=== PATIENT | female | born 1945 | race Caucasian/White ===

== ENCOUNTER 2016-05-22 09:37 | Day surgery (SDC) | payer MEDICARE, OTHER ==
[2016-05-22] MEDS ORDERED: LACTATED RINGERS 1,000 ML IV ONE (10:23)
[2016-05-22] MEDS ORDERED: fentaNYL 250 MCG/5 ML VIAL IVP ONE (12:38)
[2016-05-22] MEDS ORDERED: MIDAZOLAM 2 MG/2 ML VIAL IVP ONE (12:38)
== END 2016-05-22 09:38 | disposition home or self-care (01) ==
PROC: 0DBK8ZX Excision of Ascending Colon, Via Natural or Artificial Opening Endoscopic, Diagnostic (ICD-10-PCS; principal; 2016-05-22 10:45)
DX: Z12.11 Encounter for screening for malignant neoplasm of colon (principal); D12.2 Benign neoplasm of ascending colon; K57.30 Diverticulosis of large intestine without perforation or abscess without bleeding; K64.8 Other hemorrhoids; I10 Essential (primary) hypertension; E78.00 Pure hypercholesterolemia, unspecified; Z86.73 Personal history of transient ischemic attack (TIA), and cerebral infarction without residual deficits; Z87.891 Personal history of nicotine dependence; Z90.710 Acquired absence of both cervix and uterus
CPT/HCPCS: 45380; J3010; J7120

== ENCOUNTER 2017-02-05 17:11 | Observation (INO) | payer MEDICARE, OTHER ==
--- NOTE | 2017-02-05 17:56 | ED Physician Documentation ---
PD HPI FOCAL NEURO - Stated complaint Stated Complaint: DIZZINESS - Chief complaint Chief Complaint: Neuro - History obtained from History obtained from: Patient - History of Present Illness Timing - onset: Other (71-year-old with history of TIAs, on Plavix. Last night for about an hour she had vertigo assoc with R facial numbness and arm/leg tingling. Had mild POSADA, now better. 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, Hysterectomy, Oophrectomy - Present Medications Home Medications: Ambulatory Orders Medication Instructions Recorded Confirmed Amlodipine Besylate [Norvasc] 2.5 mg PO DAILY 05/22/16 05/22/16 Clopidogrel Bisulfate [Plavix] 75 mg PO DAILY 05/22/16 05/22/16 Methotrexate 2.5 mg PO DAILY 05/22/16 05/22/16 Rosuvastatin Calcium [Crestor] 5 mg PO DAILY 05/22/16 05/22/16 - Allergies Allergies/Adverse Reactions: Allergies Allergy/AdvReac Type Severity Reaction Status Date / Time adhesive AdvReac Rash Verified 05/22/16 10:36 lisinopril AdvReac Unknown Verified 05/22/16 10:36 - Family History Family history: reports: Non contributory PD ED PE NORMAL - Vitals Vital signs reviewed: Yes - General General: Alert and oriented X 3, No acute distress - HEENT HEENT: PERRL, EOMI - Neck Neck: Supple, no meningeal sign, No bony TTP - Cardiac Cardiac: RRR, No murmur - Respiratory Respiratory: No respiratory distress, Clear bilaterally - Abdomen Abdomen: Soft, Non tender - Back Back: No CVA TTP, No spinal TTP - Derm Derm: Normal color, Warm and dry - Extremities Extremities: No edema, No calf tenderness / cord - Neuro Neuro: Alert and oriented X 3, Normal speech Eye Opening: Spontaneous Motor: Obeys Commands Verbal: Oriented GCS Score: 15 - Psych Psych: Normal mood, Normal affect NIHSS - Time Time: 17:50 - Level of Consciousness Level of consciousness: (0) Alert, Keenly responsive LOC Questions: (0) Answers both Q's correct LOC Commands: (0) Performs both correctly - Gaze Best Gaze: (0) Normal - Visual Visual: (0) No loss - Facial Palsy Facial Palsy: (0) Normal, symmetrical movement - Motor Arms (both separate) Motor Arm (right): (0) No drift Motor Arm (left): (0) No drift - Motor Legs (both separate) Motor Leg (right): (0) No drift Motor Leg (left): (0) No drift - Limb Ataxia Limb Ataxia: (0) Absent - Sensory Sensory: (0) Normal - Best Language Best Language: (0) No aphasia - Dysarthria Dysarthria: (0) Normal - Extinction and Inattention (formally neg Extinction and inattention: (0) No abnormality - Total Score/Results Total Score/Result: 0 Results - Vitals Vitals: Vital Signs - 24 hr 02/05/17 17:21 Temperature 36.5 C Heart Rate 70 Respiratory 18 Rate Blood Pressure 150/83 H O2 Saturation 96 Oxygen O2 Source Room air - EKG (time done) 1743 Rate: Rate (enter#) (70) Rhythm: NSR [place]: Normal QRS: Low voltage Ischemia: Normal ST segments Computer interpretation: Agree with computer - Labs Labs: Laboratory Tests 02/05/17 02/05/17 02/05/17 18:02 18:02 18:02 WBC 8.0 RBC 4.21 Hgb 13.2 Hct 39.2 MCV 93.1 MCH 31.5 H MCHC 33.8 RDW 15.1 H Plt Count 342 MPV 8.3 Neut # 4.4 Lymph # 2.7 Pope # 0.7 Eos # 0.1 Baso # 0.0 Absolute Nucleated RBC 0.01 Nucleated RBC % 0.1 PT 10.9 INR 1.0 Sodium 139 Potassium 3.4 L Chloride 103 Carbon Dioxide 26 Anion Gap 10.0 BUN 24 H Creatinine 0.9 Estimated GFR (MDRD) 62 L Glucose 92 Calcium 9.2 Total Bilirubin 0.4 AST 21 ALT 17 Alkaline Phosphatase 50 Total Protein 7.6 Albumin 4.0 Globulin 3.6 Albumin/Globulin Ratio 1.1 Lipase 44 - Rads (name of study) CT Angio head and neck Radiology: EMP read contemporaneously (Old infarcts, she has hypoplasia of the right LINDSAY, the left A1 segment is dominant supplying both sides) PD MEDICAL DECISION MAKING - ED course ED course: 71-year-old woman with recurrent TIAs presents with a TIA yesterday comprised of vertigo and right-sided symptoms, normal examination at this juncture. CT imaging is shown. Will place in observation for serial exams. Spoke with Dr. Owen for observation at 8:08 PM. Started on aspirin in addition to the Plavix. 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
[2017-02-05 18:22] LABS: ALBUMIN/GLOBULIN RATIO 1.1 (1.0-2.2); BILIRUBIN,TOTAL 0.4 mg/dL (0.2-1.0); CALCIUM 9.2 mg/dL (8.5-10.3); CREATININE 0.9 mg/dL (0.4-1.0); POTASSIUM 3.4 mmol/L (3.5-5.0); TOTAL PROTEIN 7.6 g/dL (6.7-8.2)
[2017-02-05 18:26] LABS: BASOPHILS % (AUTO) 0.6 %; EOSINOPHILS # (AUTO) 0.1 10^3/uL (0.0-0.7); EOSINOPHILS % (AUTO) 1.7 %; HCT - HEMATOCRIT 39.2 % (37.0-47.0); HGB - HEMOGLOBIN 13.2 g/dL (12.0-16.0); LYMPHOCYTES # (AUTO) 2.7 10^3/uL (1.5-3.5); LYMPHOCYTES % (AUTO) 33.3 %; MEAN CORPUSCULAR HEMOGLOBIN 31.5 pg (27.0-31.0); MEAN CORPUSCULAR HGB CONC 33.8 g/dL (32.0-36.0); MEAN CORPUSCULAR VOLUME 93.1 fL (81.0-99.0); MEAN PLATELET VOLUME 8.3 fL (7.9-10.8); MONOCYTES # (AUTO) 0.7 10^3/uL (0.0-1.0); MONOCYTES % (AUTO) 9.3 %; NEUTROPHILS # (AUTO) 4.4 10^3/uL (1.5-6.6); NEUTROPHILS % (AUTO) 55.1 %; NUCLEATED RED BLOOD CELLS AUTO 0.1 /100WBC; RED BLOOD COUNT 4.21 10^6/uL (4.20-5.40); RED CELL DISTRIBUTION WIDTH 15.1 % (12.0-15.0)
[2017-02-05 18:36] LABS: PT - PROTHROMBIN TIME 10.9 secs (9.9-12.6)
[2017-02-05] MEDS ORDERED: IOPAMIDOL-300 100 ML VIAL ONE (18:43)
[2017-02-05] MEDS ORDERED: IOPAMIDOL-300 100 ML VIAL IVP ONE (19:12)
--- NOTE | 2017-02-05 20:03 | CT Report ---
EXAM: CT ANGIOGRAM HEAD. CT SCAN OF THE HEAD WITHOUT AND WITH CONTRAST. EXAM DATE: 02/05/2017 07:20 PM CLINICAL HISTORY: TIA, posterior.. Dizzy spell last night with right facial numbness. Symptoms lasted for an hour. COMPARISON: CT angiogram of the neck 02/05/2017. MRI of the brain 05/30/2012. TECHNIQUE: 1. CT Scan Head: Using a multidetector scanner, axial images were acquired from the foramen magnum to the skull vertex prior to and following contrast administration. 2. CT Angiogram: Using a multidetector scanner, high-resolution axial images were acquired from the s kull base through vertex following rapid infusion of intravenous contrast. Reformats: Multiplanar MIP reformats were reconstructed. Nascet criteria used for stenosis measurement. IV Contrast: 100 cc Isovue-300. In accordance with CT protocol optimization, one or more of the following dose reduction techniques w ere utilized for this exam: automated exposure control, adjustment of mA and/or KV based on patient s ize, or use of iterative reconstructive technique. FINDINGS: NON-CONTRAST HEAD: Parenchyma: Wedge-shaped areas of cystic encephalomalacia are seen posteriorly in the cerebellum, lar magdi on the right. Mild patchy white matter hypodensity is seen throughout the cerebral hemispheres. N o intracranial mass or hemorrhage. Extraaxial Spaces: Normal for age. No subdural or epidural collections identified. Ventricles: No hydrocephalus. Sinuses and orbits: Imaged paranasal sinuses, orbits, and mastoids show no significant abnormality. Bones: No evidence of fracture or calvarial defect. Other: None. POST-CONTRAST HEAD: No abnormal enhancement. CT ANGIOGRAM HEAD: RIGHT: Internal Carotid artery: No evidence of dissection. No evidence of aneurysm along the intracranial IC A. Mild vascular calcification is seen in the anterior cavernous ICA without significant stenosis Anterior Cerebral Artery: Patent without significant stenosis, aneurysm, or vascular malformation. Mo derate to marked hypoplasia of the A1 segment is seen. A2 and distal branches are primarily supplied through the left A1 segment and a patent A-comm. Middle Cerebral Artery: Patent without significant stenosis, aneurysm, or vascular malformation. Posterior Cerebral Artery: Patent without significant stenosis, aneurysm, or vascular malformation. F etal origin is noted as continuation of the P-comm. Posterior Communicating Artery: Patent. No aneurysm. Vertebral Artery: Patent without significant stenosis. No evidence of dissection. The PICA is unremar kable. LEFT: Internal Carotid artery: No evidence of dissection. No evidence of aneurysm along the intracranial IC A. Mild vascular calcifications are seen in the anterior cavernous ICA without significant stenosis. Anterior Cerebral Artery: Patent without significant stenosis, aneurysm, or vascular malformation. Th e left A1 segment is dominant. Middle Cerebral Artery: Patent without significant stenosis, aneurysm, or vascular malformation. Posterior Cerebral Artery: Patent without significant stenosis, aneurysm, or vascular malformation. Posterior Communicating Artery: Not visualized. Vertebral Artery: Patent without significant stenosis. No evidence of dissection. CENTRAL: Anterior Communicating Artery: Patent. No aneurysm. Basilar Artery: Patent without significant stenosis. No aneurysm. Bilateral superior cerebellar arter ies are unremarkable. The basilar artery terminates as the left BUSINESS PROCESS ASSOCIATE. DURAL VENOUS SINUSES AND MAJOR CENTRAL VEINS: Patent. The right transverse sinus and jugular bulb are dominant. IMPRESSION: CT Head: 1. No acute intracranial abnormality. No abnormal enhancement. 2. Wedge-shaped cystic foci in the cerebellar hemispheres, greater on the right. Findings are consist ent with old infarcts. 3. Patchy white matter hypodensity throughout the cerebral hemispheres. Findings are nonspecific but typically secondary to small vessel ischemic change. CTA Head: 1. Normal CTA of the head. No significant vascular stenosis, dissection, or aneurysm. 2. 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 The left A1 segment is domin ant, primarily supplying bilateral A2 and distal segments. 3. origin of the right BUSINESS PROCESS ASSOCIATE is seen as continuation of the P-comm. [facility] Referring Provider Line: [phone] SITE ID: [id number]
--- NOTE | 2017-02-05 20:03 | CT Report ---
EXAM: CT ANGIOGRAM NECK EXAM DATE: 02/05/2017 07:21 PM. CLINICAL HISTORY: TIA, posterior. Dizzy spell with right facial numbness last night lasting about an hour. COMPARISON: None. CT scan and CT Alecia Gram of the head 02/05/2017. TECHNIQUE: Routine axial helical imaging was performed from the skull base through the aortic arch. I V Contrast: 100 cc Isovue-300. Reconstructions: Routine multiplanar 3D MIP reconstructions. Evaluatio n of arterial stenosis is based on a NASCET method of measurement. In accordance with CT protocol optimization, one or more of the following dose reduction techniques w ere utilized for this exam: automated exposure control, adjustment of mA and/or KV based on patient s ize, or use of iterative reconstructive technique. FINDINGS: The partially visualized aortic arch is unremarkable with mild tortuosity. Normal three-vessel branch ing is seen. Mild vascular calcification is seen at the origin of right brachiocephalic and left comm on carotid arteries. Great vessels off the arch are patent and unremarkable. Right Carotid: The common carotid, internal carotid, and external carotid arteries are widely patent. No dissection, significant atherosclerotic plaque, or calcification identified. Mild circumferential dural thickening is seen at the CCA bifurcation without significant stenosis. Left Carotid: The common carotid, internal carotid, and external carotid arteries are widely patent. No dissection, significant atherosclerotic plaque, or calcification identified. Punctate calcificatio n is seen in the mid CCA. Mild atherosclerotic thickening and calcification is seen at the CCA bifurc ation and proximal ICA. No significant stenosis. Vertebrals: The vertebrobasilar system shows no stenoses. Intracranial Circulation: Normal. No stenoses or aneurysms of the visualized vessels. Other: Mild interstitial bolus changes seen in the lung apices. Mild biapical pleural thickening is n oted. The muscle and fascial planes of the neck are unremarkable. The right internal jugular vein is domina nt. No lytic or blastic lesions are seen within the bones. Mild to moderate spondylosis is seen throughou t the cervical spine. C3-C4: Right facet osseous fusion. C4-C5, C5-C6, C6-C7: Degenerative disk and u ncovertebral change. Bilateral foraminal stenosis is seen at C4-C5 and C5-C6. Central canal stenosis from dorsal osteophyte formation is seen at C5-C6. IMPRESSION: 1. Mild scattered atherosclerotic change seen in the thoracic inlet and carotid bifurcation. No signi ficant stenosis. No dissection. 2. Vertebral arteries are codominant and widely patent. 3. Spondylosis in the mid and lower cervical spine. Canal and foraminal stenosis is seen at C5-C6. [facility] Referring Provider Line: [phone] SITE ID: [id number]
[2017-02-05] MEDS ORDERED: ASPIRIN CHEW 81 MG TABLET PO STA (20:05)
[2017-02-05] MEDS ORDERED: ASPIRIN CHEW 81 MG TABLET ONE (20:16)
[2017-02-05] MEDS ORDERED: PROCHLORPERAZINE 10 MG/2 ML VIAL IVP PRN (20:31)
[2017-02-05] MEDS ORDERED: POTASSIUM CHLORIDE 20 MEQ TABLET PO STA (20:31)
[2017-02-05] MEDS ORDERED: HYDROcod/ACETAM 10 MG/325 MG TABLET PO PRN (20:31)
[2017-02-05] MEDS ORDERED: ACETAMINOPHEN 325 MG TABLET PO PRN (20:31)
[2017-02-05] MEDS ORDERED: SODIUM CHLORIDE FLUSH 0.9% 10 ML SYRINGE IVP PRN (20:31)
[2017-02-05] MEDS ORDERED: ZOLPIDEM 5 MG TABLET PO PRN (20:31)
[2017-02-05] MEDS ORDERED: ONDANSETRON 4 MG/2 ML VIAL IVP PRN (20:31)
[2017-02-05] MEDS ORDERED: SODIUM CHLORIDE 0.9% 1,000 ML IV SCH (21:00)
[2017-02-05] MEDS ORDERED: ATORVASTATIN 40 MG TABLET PO SCH (21:00)
[2017-02-05] MEDS ORDERED: POTASSIUM CHLORIDE 20 MEQ TABLET PO SCH (21:40)
[2017-02-05] MEDS ORDERED: CALCIUM CARBONATE CHEW 500 MG TABLET PO SCH (22:56)
[2017-02-05] MEDS: SODIUM CHLORIDE FLUSH 0.9% 10 ML SYRINGE IVP SCH (23:07)
--- NOTE | 2017-02-06 01:47 | HISTORY & PHYSICAL EXAMINATION ---
Chief Complaint - Chief Complaint Chief Complaint: Right-sided numbness History of Present Illness - Admitted From Admitted From:: Emergency department - History Obtained From Records Reviewed: Yes History obtained from: Patient Exam Limitations: None - History of Present Illness HPI Comment/Other: Patient is a 71-year-old female with a past medical history significant for TIAs , hypertension, hyperlipidemia and rheumatoid arthritis who presented to the emergency department with a chief complaint of right sided numbness, dizziness and headache. The patient states that the symptoms came on abruptly yesterday and lasted for a total of about 1 hour. She states that initially she felt extremely dizzy to a point where she states that she could barely walk and then began noticing numbness on the right side initially on her face and then down her right arm and her right leg. She states that the symptoms lasted for 1 hour and resolved but then she felt a slight headache. She states that she does not normally get headaches. She states that on her previous TIA she experienced a severe headache and blurred vision and this made her concerned for the possibility of having had another TIA. The patient states that her son- in-law examined her at home yesterday and checked for any facial droop or decreased strength and the patient states that she did not have any of those symptoms at that time. Patient states that she had no difficulty with her speech and denies any changes in her vision. The patient states that her symptoms improved after 1 hour but had not completely resolved and her headache remained into today when she finally decided to come to the emergency department. She states by the time she arrived the emergency department her symptoms have almost completely resolved. The patient does state that she uses Plavix at home and is on a cholesterol medication. The patient otherwise denies any fevers, chills, runny nose, sore throat, nasal congestion, difficulty swallowing, neck pain, chest pain, shortness of air, orthopnea, PND, abdominal pain, nausea, vomiting, diarrhea, constipation, urinary urgency, urinary frequency, dysuria, joint swelling, muscle aches, back pain, neck stiffness, muscle weakness, facial droop or aphasia. On presentation to the emergency department the patient is afebrile she is slightly hypertensive but otherwise not in any respiratory distress or any other acute distress. The patient's NIH stroke scale score was 0 on presentation. The patient was given aspirin in the emergency department and underwent imaging studies. The patient had a CT and CTA a of the head and neck which revealed no acute intracranial abnormality, wedge-shaped cystic foci in the cerebellar hemispheres, greater on the right which are consistent with old infarcts. She also was found to have patchy white matter hypodensity throughout the cerebral hemispheres which are nonspecific but typically secondary to small vessel ischemic change. The patient had a normal CTA of the head with no significant vascular stenosis, dissection or aneurysm. The patient 's CTA of the neck did reveal some mild scattered atherosclerotic change seen in the thoracic inlet and carotid bifurcation. There was no significant stenosis. The patient was placed in observation for likely TIA and will be monitored with neuro checks, telemetry monitoring and MRI in the morning. 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 The patient is originally from [place] and spent many years in [place] [place]. She is and lost her to cancer about 9 years ago. She has a degree in psychology. She has 5 daughters 1 of whom is in [facility] [place] and will be moving back to [place] [facility] within the next month. The patient does not smoke cigarettes, she rarely drinks alcohol and denies any illicit drug use. - POLST Patient has POLST: No POLST Status: Full Code Meds/Allgy - Home Medications Home Medications: Ambulatory Orders Medication Instructions Recorded Confirmed Amlodipine Besylate [Norvasc] 2.5 mg PO DAILY 05/22/16 05/22/16 Clopidogrel Bisulfate [Plavix] 75 mg PO DAILY 05/22/16 05/22/16 Methotrexate 2.5 mg PO DAILY 05/22/16 05/22/16 Rosuvastatin Calcium [Crestor] 5 mg PO DAILY 05/22/16 05/22/16 - Allergies Allergies/Adverse Reactions: Allergies Allergy/AdvReac Type Severity Reaction Status Date / Time adhesive AdvReac Rash Verified 05/22/16 10:36 lisinopril AdvReac Unknown Verified 05/22/16 10:36 Review of Systems - Other Findings Other Findings: A comprehensive review of systems was performed the pertinent positives and negatives are stated above in the HPI and the remainder of the review of systems is negative. Exam - Vital Signs Reviewed Vital Signs: Yes Vital Signs: Vital Signs x48h Temp Pulse Pulse Resp BP BP Pulse Ox 02/06/17 00:05 36.4 C L 59 L 18 121/65 97 02/05/17 21:58 36.4 C L 68 18 138/68 H 98 02/05/17 21:23 69 18 160/71 H 99 02/05/17 20:44 70 18 167/67 H 98 - Physical Exam General Appearance: positive: No acute distress, Alert Eyes Bilateral: positive: Normal inspection, PERRL, EOMI, No lid inflammation, Conjunctivae nml, No scleral icterus ENT: positive: ENT inspection nml, Pharynx nml, No signs of dehydration. negative: Purulent nasal drainage, Pharyngeal erythema, Oral lesions Neck: positive: Nml inspection, Thyroid nml, No JVD, Trachea midline. negative : Thyromegaly, Lymphadenopathy (R), Lymphadenopathy (L), Stiff neck, Carotid bruit, Tracheal deviation Respiratory: positive: Chest non-tender, No respiratory distress, Breath sounds nml. negative: Wheezes, Rales, Rhonchi Cardiovascular: positive: Regular rate & rhythm, No gallop, Systolic murmur Peripheral Pulses: positive: 2+ Abdomen: positive: Non-tender, No organomegaly, Nml bowel sounds, No distention. negative: Guarding, Rebound, Hepatomegaly Back: positive: Nml inspection. negative: CVA tenderness (R), CVA tenderness (L ) Skin: positive: Color nml, No rash. negative: Cyanosis, Pallor Extremities: positive: Non-tender, Full ROM, Nml appearance, No pedal edema, Other (bilateral hypertrophy of the MCP and PIP joints in the hands) Neurologic/Psychiatric: positive: Oriented x3, CN's nml (2-12), Motor nml, Sensation nml, Mood/affect nml Conclusion/Plan - Problem List (1) TIA (transient ischemic attack) Conclusion/Plan: Patient presented to the emergency room secondary to right sided facial, arm and leg numbness that lasted for 1 hour one day ago. She also had headache and dizziness where she could not walk which sounds more like vertigo. The patient does have history of previous TIAs and did undergo imaging studies in the emergency department which revealed chronic changes from her previous TIAs/ strokes. The patient's symptoms have now completely resolved. The patient is on Plavix at home but not aspirin. She does take a statin. 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 Given that she did have a TIA we will allow for permissive hypertension and hold any of her home antihypertensive medications unless blood pressure becomes exceedingly high at which point we will restart her medication. Qualifiers: Hypertension type: essential hypertension Qualified Code(s): I10 - Essential (primary) hypertension (3) Hypokalemia Conclusion/Plan: Patient's potassium is slightly decreased on presentation. We will replace the patient's potassium and continue to monitor her potassium daily. (4) Hyperlipidemia Conclusion/Plan: The patient is on statin at home. We will check a lipid profile We will continue patient on statin (5) Rheumatoid arthritis Conclusion/Plan: Patient has history of rheumatoid arthritis and is maintained on methotrexate. Although she does have changes of rheumatoid arthritis in her hands her symptoms at this point are controlled. We will continue her home dose of methotrexate. - Lab Results Lab results reviewed: Yes Fish Bones: 02/05/17 18:02 02/05/17 18:02 Other Lab Results: Laboratory Results WBC 8.0 x10^3/uL (4.8-10.8) 02/05/17 18:02 RBC 4.21 10^6/uL (4.20-5.40) 02/05/17 18:02 Hgb 13.2 g/dL (12.0-16.0) 02/05/17 18:02 Hct 39.2 % (37.0-47.0) 02/05/17 18:02 MCV 93.1 fL (81.0-99.0) 02/05/17 18:02 MCH 31.5 pg (27.0-31.0) H 02/05/17 18:02 MCHC 33.8 g/dL (32.0-36.0) 02/05/17 18:02 RDW 15.1 % (12.0-15.0) H 02/05/17 18:02 Plt Count 342 10^3/uL (130-450) 02/05/17 18:02 MPV 8.3 fL (7.9-10.8) 02/05/17 18:02 Neut # 4.4 10^3/uL (1.5-6.6) 02/05/17 18:02 Lymph # 2.7 10^3/uL (1.5-3.5) 02/05/17 18:02 [place] # 0.7 10^3/uL (0.0-1.0) 02/05/17 18:02 Eos # 0.1 10^3/uL (0.0-0.7) 02/05/17 18:02 Baso # 0.0 10^3/uL (0.0-0.1) 02/05/17 18:02 Absolute Nucleated RBC 0.01 x10^3/uL 02/05/17 18:02 Nucleated RBC % 0.1 /100WBC 02/05/17 18:02 PT 10.9 secs (9.9-12.6) 02/05/17 18:02 INR 1.0 (0.8-1.2) 02/05/17 18:02 Sodium 139 mmol/L (135-145) 02/05/17 18:02 Potassium 3.4 mmol/L (3.5-5.0) L 02/05/17 18:02 Chloride 103 mmol/L (101-111) 02/05/17 18:02 Carbon Dioxide 26 mmol/L (21-32) 02/05/17 18:02 Anion Gap 10.0 (6-13) 02/05/17 18:02 BUN 24 mg/dL (6-20) H 02/05/17 18:02 Creatinine 0.9 mg/dL (0.4-1.0) 02/05/17 18:02 Estimated GFR (MDRD) 62 (>89) L 02/05/17 18:02 Glucose 92 mg/dL (70-100) 02/05/17 18:02 Calcium 9.2 mg/dL (8.5-10.3) 02/05/17 18:02 Total Bilirubin 0.4 mg/dL (0.2-1.0) 02/05/17 18:02 AST 21 IU/L (10-42) 02/05/17 18:02 ALT 17 IU/L (10-60) 02/05/17 18:02 Alkaline Phosphatase 50 IU/L (42-121) 02/05/17 18:02 Total Protein 7.6 g/dL (6.7-8.2) 02/05/17 18:02 Albumin 4.0 g/dL (3.2-5.5) 02/05/17 18:02 Globulin 3.6 g/dL (2.1-4.2) 02/05/17 18:02 Albumin/Globulin Ratio 1.1 (1.0-2.2) 02/05/17 18:02 Lipase 44 U/L (22-51) 02/05/17 18:02 - Diagnostic Imaging Results Diagnostic Imaging Results: positive: Final report reviewed Diagnostic Imaging Results Comments: CT angios neck Impression: 1. Mild scattered atherosclerotic change seen in the thoracic inlet and carotid bifurcation, no significant stenosis. No dissection. 2. Vertebral arteries are codominant and widely patent. 3. 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 Canal and foraminal stenosis is seen at C5-C6. CT head Impression: 1. No acute intracranial abnormality. No abnormal enhancement. 2. Wedge-shaped cystic foci in the cerebellar hemispheres, greater on the right. Findings are consistent with old infarcts. 3. Patchy white matter hypodensity throughout the cerebral hemispheres. Findings are nonspecific but typically secondary to small vessel ischemic change. CT angiogram head: Impression: 1. Normal CTA of the head. No significant vascular stenosis, dissection or aneurysm. 2. 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 The left A1 segment is dominant, primarily supplying bilateral A2 and distal segments. 3. origin of the right SCULPTURE INSTRUCTOR is seen as continuation of the Pcomm. - EKG Results EKG Interpreted Independently: Yes Issues/Core Measures - Anticipated LOS Anticipated Stay Length: Less than 2 midnights - DVT/VTE - Prophylaxis VTE/DVT Device ordered at admit?: Yes
[2017-02-06 05:53] LABS: BASOPHILS % (AUTO) 0.7 %; EOSINOPHILS # (AUTO) 0.2 10^3/uL (0.0-0.7); EOSINOPHILS % (AUTO) 3.1 %; HCT - HEMATOCRIT 40.8 % (37.0-47.0); HGB - HEMOGLOBIN 13.5 g/dL (12.0-16.0); LYMPHOCYTES # (AUTO) 2.3 10^3/uL (1.5-3.5); LYMPHOCYTES % (AUTO) 33.7 %; MEAN CORPUSCULAR HEMOGLOBIN 30.8 pg (27.0-31.0); MEAN CORPUSCULAR VOLUME 93.3 fL (81.0-99.0); MEAN PLATELET VOLUME 8.3 fL (7.9-10.8); MONOCYTES # (AUTO) 0.6 10^3/uL (0.0-1.0); MONOCYTES % (AUTO) 9.1 %; NEUTROPHILS # (AUTO) 3.7 10^3/uL (1.5-6.6); NEUTROPHILS % (AUTO) 53.4 %; RED BLOOD COUNT 4.37 10^6/uL (4.20-5.40); RED CELL DISTRIBUTION WIDTH 15.1 % (12.0-15.0)
[2017-02-06] MEDS: SODIUM CHLORIDE FLUSH 0.9% 10 ML SYRINGE IVP SCH ×2 (06:07→10:34)
[2017-02-06 06:11] LABS: ALBUMIN/GLOBULIN RATIO 1.1 (1.0-2.2); BILIRUBIN,TOTAL 0.7 mg/dL (0.2-1.0); BUN - BLOOD UREA NITROGEN 19 mg/dL (6-20); CALCIUM 8.8 mg/dL (8.5-10.3); CARBON DIOXIDE - CO2 21 mmol/L (21-32); CHLORIDE 108 mmol/L (101-111); CHOL/HDL RATIO 3.4 (<4.4); CHOLESTEROL 159 mg/dL; CREATININE 0.7 mg/dL (0.4-1.0); GFR - MDRD 83 (>89); GLUCOSE 92 mg/dL (70-100); HDL CHOLESTEROL 47 mg/dL; LDL/HDL RATIO 1.7 (<4.4); POTASSIUM 3.8 mmol/L (3.5-5.0); SODIUM 140 mmol/L (135-145); TOTAL PROTEIN 7.3 g/dL (6.7-8.2); TRIGLYCERIDES 149 mg/dL; VLDL CHOLESTEROL 30 mg/dL
[2017-02-06 06:12] LABS: PT - PROTHROMBIN TIME 11.5 secs (9.9-12.6)
[2017-02-06 06:21] LABS: HEMOGLOBIN A1C 0.53 g/dL
[2017-02-06] MEDS ORDERED: POLYETHYLENE GLYCOL 3350 17 GM PACKET PO SCH (09:00)
[2017-02-06] MEDS ORDERED: ASPIRIN EC 81 MG TABLET PO SCH (09:00)
[2017-02-06] MEDS ORDERED: CLOPIDOGREL 75 MG TABLET PO SCH (09:00)
[2017-02-06] MEDS ORDERED: ATORVASTATIN 40 MG TABLET PO SCH (09:00)
[2017-02-06] MEDS ORDERED: FAMOTIDINE 20 MG TABLET PO SCH (09:00)
--- NOTE | 2017-02-06 10:09 | MRI Preliminary Report ---
Exam: MRI BRAIN W/O IMPRESSION: 1.No acute intracranial abnormality. No acute infarct, mass, or hemorrhage. 2. Moderate white matter signal change throughout the cerebral hemispheres. Findings are nonspecific but typically secondary to small vessel ischemic change. 3. Multiple peripheral cystic foci in the cerebellar hemispheres bilaterally, consistent with old [place] infarcts. [facility] SITE ID: [id number]
--- NOTE | 2017-02-06 10:30 | MRI Report ---
EXAM: MRI BRAIN WITHOUT CONTRAST EXAM DATE: 02/06/2017 09:28 AM. CLINICAL HISTORY: TIA. COMPARISON: MRI of the brain 05/30/2012. CT scan and CT angiogram of the head 02/05/2017. TECHNIQUE: Multiplanar, multisequence T1-weighted and fluid-sensitive MR sequences of the brain were performed. Sequences optimized for routine evaluation. Other: None. IV Contrast: None. FINDINGS: Brain Volume: Normal for age. Parenchyma/Dura: No mass, acute infarct or hemorrhage. There are multiple foci of cystic encephalomal acia noted peripherally in the cerebellar hemispheres bilaterally. Moderate patchy T2 and FLAIR brigh t signal is seen throughout the cerebral hemispheres bilaterally. Ventricles/Cisterns: No hydrocephalus. No abnormal extra-axial fluid collection or hemorrhage. Orbits: Symmetric and unremarkable. Sella Turcica: The pituitary gland, cavernous sinuses, suprasellar cistern and optic chiasm are unrem arkable. IAC: Symmetric and unremarkable. Vasculature: Normal signal flow void is seen in the major arterial structures at the skull base. Sinuses: No acute appearing sinus disease. Mild mucosal thickening is seen in ethmoid air cells. Bones: No focal pathologic appearing marrow signal changes. Other: None. IMPRESSION: 1.No acute intracranial abnormality. No acute infarct, mass, or hemorrhage. 2. Moderate white matter signal change throughout the cerebral hemispheres. Findings are nonspecific but typically secondary to small vessel ischemic change. 3. Multiple peripheral cystic foci in the cerebellar hemispheres bilaterally, consistent with old [place] infarcts. [facility] Referring Provider Line: [phone] SITE ID: [id number]
[2017-02-06] MEDS ORDERED: hydroCHLOROthiazide 25 MG TABLET PO SCH (12:00)
[2017-02-06] MEDS ORDERED: FOLIC ACID 1 MG TABLET PO SCH (12:00)
--- NOTE | 2017-02-06 13:00 | Discharge Plan ---
Discharge Plan Disposition: 01 Home, Self Care Condition: Stable Prescriptions: Aspirin [Adult Low Dose Aspirin EC] 81 mg PO DAILY #10 tablet. Diet: Cardiac Activity Restrictions: Activity as Tolerated Shower Restrictions: No Weight Bearing: Full Weight Additional Instructions or Follow Up instructions: May see PCP in one week No Smoking: If you smoke, Please STOP! Call for help. Follow-up with: Justin Singh MD [Primary Care Provider] -
--- NOTE | 2017-02-06 13:01 | DISCHARGE SUMMARY ---
Discharge Summary Discharge Date: 02/06/17 Discharging Provider: Cm Primary Care Provider: Justin Chowdhury Condition at Discharge: Stable Discharge Disposition: 01 Home, Self Care Discharge Facility Name: home - DIAGNOSES Admission Diagnoses: (1) TIA (transient ischemic attack) (2) Hypertension (3) Hypokalemia (4) Hyperlipidemia (5) Rheumatoid arthritis Discharge Diagnoses with Status of Each Condition: (1) TIA (transient ischemic attack) pt state she did not have any more focal neuro deficits MRI, CTA of neck, ECHO reveals no acute finding (2) Hypertension stable, continue home regime (3) Hypokalemia resolved (4) Hyperlipidemia stable, continue home meds (5) Rheumatoid arthritis stable, continue home meds - HPI History of Present Illness: please refer from Dr. Owen's HPI on 02/05/17 as the following: Patient is a 71-year-old female with a past medical history significant for TIAs , hypertension, hyperlipidemia and rheumatoid arthritis who presented to the emergency department with a chief complaint of right sided numbness, dizziness and headache. The patient states that the symptoms came on abruptly yesterday and lasted for a total of about 1 hour. She states that initially she felt extremely dizzy to a point where she states that she could barely walk and then began noticing numbness on the right side initially on her face and then down her right arm and her right leg. She states that the symptoms lasted for 1 hour and resolved but then she felt a slight headache. She states that she does not normally get headaches. She states that on her previous TIA she experienced a severe headache and blurred vision and this made her concerned for the possibility of having had another TIA. The patient states that her son- in-law examined her at home yesterday and checked for any facial droop or decreased strength and the patient states that she did not have any of those symptoms at that time. Patient states that she had no difficulty with her speech and denies any changes in her vision. The patient states that her symptoms improved after 1 hour but had not completely resolved and her headache remained into today when she finally decided to come to the emergency department. She states by the time she arrived the emergency department her symptoms have almost completely resolved. The patient does state that she uses Plavix at home and is on a cholesterol medication. The patient otherwise denies any fevers, chills, runny nose, sore throat, nasal congestion, difficulty swallowing, neck pain, chest pain, shortness of air, orthopnea, PND, abdominal pain, nausea, vomiting, diarrhea, constipation, urinary urgency, urinary frequency, dysuria, joint swelling, muscle aches, back pain, neck stiffness, muscle weakness, facial droop or aphasia. On presentation to the emergency department the patient is afebrile she is slightly hypertensive but otherwise not in any respiratory distress or any other acute distress. The patient's NIH stroke scale score was 0 on presentation. The patient was given aspirin in the emergency department and underwent imaging studies. The patient had a CT and CTA a of the head and neck which revealed no acute intracranial abnormality, wedge-shaped cystic foci in the cerebellar hemispheres, greater on the right which are consistent with old infarcts. She also was found to have patchy white matter hypodensity throughout the cerebral hemispheres which are nonspecific but typically secondary to small vessel ischemic change. The patient had a normal CTA of the head with no significant vascular stenosis, dissection or aneurysm. The patient 's CTA of the neck did reveal some mild scattered atherosclerotic change seen in the thoracic inlet and carotid bifurcation. There was no significant stenosis. The patient was placed in observation for likely TIA and will be monitored with neuro checks, telemetry monitoring and MRI in the morning. - HOSPITAL COURSE Hospital Course: pt was admitted for TIA, right side extremities numbness, dizziness. Pt has hx of stroke, and TIA. pt is on Plavix. pt state her symptoms are total resolved. pt's MRI of brain, CTA of neck, ECHO reveals no acute finding. Pt is advised to continue Plavix plus Aspirin 81 mg daily, and follow PCP in one week. - ALLERGIES Allergies/Adverse Reactions: Allergies Allergy/AdvReac Type Severity Reaction Status Date / Time adhesive AdvReac Rash Verified 05/22/16 10:36 lisinopril AdvReac Unknown Verified 05/22/16 10:36 - MEDICATIONS Home Medications: Ambulatory Orders Medication Instructions Recorded Confirmed Clopidogrel Bisulfate [Plavix] 75 mg PO DAILY 05/22/16 02/06/17 Methotrexate 20 mg PO TH 05/22/16 02/06/17 Rosuvastatin Calcium [Crestor] 5 mg PO DAILY 05/22/16 02/06/17 Aspirin [Adult Low Dose Aspirin EC] 81 mg PO DAILY #10 02/06/17 Folic Acid 1 mg PO DAILY 02/06/17 02/06/17 hydroCHLOROthiazide 25 mg PO DAILY 02/06/17 02/06/17 [Hydrochlorothiazide] - PHYSICAL EXAM AT DISCHARGE General Appearance: positive: No acute distress, Alert. negative: Lethargic Eyes Bilateral: positive: Normal inspection, PERRL, EOMI, No lid inflammation, Conjunctivae nml ENT: positive: ENT inspection nml, Pharynx nml, No signs of dehydration. negative: Purulent nasal drainage, Pharyngeal erythema, Dry mucous membranes Neck: positive: Nml inspection, Thyroid nml, No JVD. negative: Trachea midline , Thyromegaly, Lymphadenopathy (R), Lymphadenopathy (L), Stiff neck, Carotid bruit, Swelling/bruising, Tracheal deviation Respiratory: positive: Chest non-tender, No respiratory distress, Breath sounds nml. negative: Wheezes, Rales, Rhonchi Cardiovascular: positive: Regular rate & rhythm, No murmur, No gallop. negative : Irregularly irregular, Extrasystoles, Tachycardia, Bradycardia, Systolic murmur, Diastolic murmur Abdomen: positive: Non-tender, No organomegaly, Nml bowel sounds, No distention. negative: Tenderness, Guarding, Rebound Back: positive: Nml inspection. negative: CVA tenderness (R), CVA tenderness (L ) Skin: positive: Color nml, No rash, Warm, Dry. negative: Cyanosis, Diaphoresis , Pallor, Skin rash Extremities: positive: Non-tender, Full ROM, Nml appearance. negative: Pedal edema, Calf tenderness, Joint swelling, Bry's sign/cords Neurologic/Psychiatric: positive: Oriented x3, Motor nml, Sensation nml, Mood/ affect nml. negative: Weakness, Sensory loss, Facial droop, Slurred/abnml speech, Depressed mood/affect - LABS Result Diagrams: 02/06/17 05:23 02/06/17 05:23 - FOLLOW UP Follow Up: pt is advised to follow up PCP in one week. Pt is advised to continue Plavix plus Aspirin 81 mg daily, and follow PCP in one week.
[2017-02-06 13:43] VITALS: BP 130/68
[2017-02-08] MEDS ORDERED: METHOTREXATE 2.5 MG TABLET PO SCH (09:00)
== END 2017-02-06 14:09 | disposition home or self-care (01) ==
LOC: ED 17:11 → OBS 20:32
PROVIDERS: ADMIT Internal Medicine; ATTEND Nurse Practitioner Gerontology
DX: G45.0 Vertebro-basilar artery syndrome (principal); I10 Essential (primary) hypertension; E87.6 Hypokalemia; E78.5 Hyperlipidemia, unspecified; M06.9 Rheumatoid arthritis, unspecified; Z79.02 Long term (current) use of antithrombotics/antiplatelets; Z86.73 Personal history of transient ischemic attack (TIA), and cerebral infarction without residual deficits; Z79.899 Other long term (current) drug therapy
CPT/HCPCS: 36415; 70496; 70498; 70551; 80053; 80061; 83036; 83690; 85025; 85610; 93306; 96360; 96361; 99283; 99285; A9270; G0378; Q9967; 99284

== ENCOUNTER 2017-06-27 15:13 | Outpatient (CLI) | payer MEDICARE, OTHER ==
[2017-06-27 19:33] LABS: BASOPHILS # (AUTO) 0.1 10^3/uL (0.0-0.1); BASOPHILS % (AUTO) 0.8 %; EOSINOPHILS # (AUTO) 0.1 10^3/uL (0.0-0.7); EOSINOPHILS % (AUTO) 1.3 %; HGB - HEMOGLOBIN 12.6 g/dL (12.0-16.0); LYMPHOCYTES # (AUTO) 2.1 10^3/uL (1.5-3.5); LYMPHOCYTES % (AUTO) 27.8 %; MEAN CORPUSCULAR HEMOGLOBIN 30.8 pg (27.0-31.0); MEAN CORPUSCULAR VOLUME 93.2 fL (81.0-99.0); MEAN PLATELET VOLUME 8.7 fL (7.9-10.8); MONOCYTES # (AUTO) 0.9 10^3/uL (0.0-1.0); MONOCYTES % (AUTO) 11.4 %; NEUTROPHILS # (AUTO) 4.5 10^3/uL (1.5-6.6); NEUTROPHILS % (AUTO) 58.7 %; PLT - PLATELET COUNT 345 10^3/uL (130-450); RED CELL DISTRIBUTION WIDTH 15.3 % (12.0-15.0); WHITE BLOOD COUNT 7.7 x10^3/uL (4.8-10.8)
[2017-06-27 19:54] LABS: ALBUMIN 4.1 g/dL (3.2-5.5); ALBUMIN/GLOBULIN RATIO 1.2 (1.0-2.2); ALKALINE PHOSPHATASE 44 IU/L (42-121); ALT ALANINE AMINOTRANSFERASE 17 IU/L (10-60); AST ASPARTATE AMINOTRANSFERASE 21 IU/L (10-42); BILIRUBIN,TOTAL < 0.2 mg/dL (0.2-1.0); BUN - BLOOD UREA NITROGEN 25 mg/dL (6-20); CALCIUM 9.2 mg/dL (8.5-10.3); CARBON DIOXIDE - CO2 28 mmol/L (21-32); CHLORIDE 103 mmol/L (101-111); CREATININE 0.9 mg/dL (0.4-1.0); GFR - MDRD 62 (>89); GLUCOSE 95 mg/dL (70-100); SODIUM 136 mmol/L (135-145); TOTAL PROTEIN 7.5 g/dL (6.7-8.2)
== END 2017-06-27 15:14 | disposition home or self-care (01) ==
LOC: LAB.WCP 15:13
PROVIDERS: ATTEND Internal Medicine Rheumatology
DX: M05.79 Rheumatoid arthritis with rheumatoid factor of multiple sites without organ or systems involvement (principal)
CPT/HCPCS: 36415; 80053; 85025; 85651

== ENCOUNTER 2021-04-24 10:22 | Inpatient (IN) | payer MEDICARE, OTHER ==
--- NOTE | 2021-04-24 11:03 | ED Physician Documentation ---
PD HPI DYSPNEA - Stated complaint Stated Complaint: C+ SOA - Chief complaint Chief Complaint: Resp - History obtained from History obtained from: Patient - History of Present Illness Timing - onset: How many weeks ago (2) Timing - duration: Weeks (2) Timing - details: Gradual onset, Still present (worsened the past few days.) Inciting event(s): URI (cough, congestion, malaise, with positive COVID rapid test 04/08/21.), Other (unimmunized) Associated symptoms: Fever, Cough, Wheezing. No: Palpitations, Bilateral edema Similar symptoms before: Has not had sx before Recently seen: Not recently seen Review of Systems Constitutional: reports: Fever, Chills, Myalgias, Fatigue Nose: reports: Congestion. denies: Rhinorrhea / runny nose Throat: denies: Sore throat Cardiac: denies: Chest pain / pressure, Palpitations, Pedal edema Respiratory: reports: Dyspnea, Cough GI: reports: Nausea, Diarrhea (couple of times several days ago.). denies: Abdominal Pain, Vomiting Skin: denies: Rash Neurologic: reports: Generalized weakness. 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 : None HEENT: None Psych: None Musculoskeletal: Osteoarthritis, Other Derm: Psoriasis - Past Surgical History Past Surgical History: Yes General: Colonoscopy /VENDING MACHINE FILLER: section, Hysterectomy, Oophrectomy - Present Medications Home Medications: Ambulatory Orders Medication Instructions Recorded Confirmed Clopidogrel Bisulfate [Plavix] 75 mg PO DAILY 05/22/16 04/24/21 Methotrexate [Methotrexate Sodium] 20 mg PO TH 05/22/16 04/24/21 Rosuvastatin Calcium [Crestor] 5 mg PO DAILY 05/22/16 04/24/21 Folic Acid 1 mg PO DAILY 02/06/17 04/24/21 Pantoprazole [Protonix] 40 mg PO DAILY 04/24/21 04/24/21 - Allergies Allergies/Adverse Reactions: Allergies Allergy/AdvReac Type Severity Reaction Status Date / Time adhesive AdvReac Rash Verified 04/24/21 10:41 lisinopril AdvReac Unknown Verified 04/24/21 10:41 - Social History Does the pt smoke?: No Smoking Status: Former smoker Does the pt drink ETOH?: Yes Does the pt have substance abuse?: No - Immunizations Immunizations are current?: No Immunizations: Other immun not current - POLST Patient has POLST: No POLST Status: Full Code PD ED PE NORMAL - Vitals Vital signs reviewed: Yes (sats 86% RA) - General General: Alert and oriented X 3, Well developed/nourished - HEENT HEENT: Pharynx benign. No: Moist mucous membranes - Neck Neck: Supple, no meningeal sign, No adenopathy - Cardiac Cardiac: RRR, No murmur - Respiratory Respiratory: No: Clear bilaterally (decreased diffusely, with fine crackles more to left. CLear at bases. Some end exp wheezing. ) - Abdomen Abdomen: Soft, Non tender - Derm Derm: Normal color, Warm and dry - Extremities Extremities: No tenderness to palpate, No edema, No calf tenderness / cord - Neuro Neuro: Alert and oriented X 3, No motor deficit, Normal speech Results - Vitals Vitals: Vital Signs - 24 hr 04/24/21 04/24/21 04/24/21 10:42 10:55 11:24 Temperature 37.7 C Heart Rate 91 88 88 Respiratory 20 18 25 H Rate Blood Pressure 122/76 97/69 99/63 O2 Saturation 86 L 93 91 L 04/24/21 04/24/21 04/24/21 11:30 12:00 12:12 Temperature Heart Rate 85 96 119 H Respiratory 24 13 22 Rate Blood Pressure 96/62 113/77 O2 Saturation 94 94 04/24/21 12:30 Temperature Heart Rate 100 Respiratory 18 Rate Blood Pressure 132/66 H O2 Saturation 100 Oxygen O2 Source Nasal cannula Oxygen Flow Rate 4 - EKG (time done) 11:37 Rate: Rate (enter#) (85) Rhythm: NSR [place]: Normal Intervals: Normal NV QRS: Normal Ischemia: Normal ST segments. No: ST elevation c/w ischemia, ST depression - Labs Labs: Laboratory Tests 04/24/21 04/24/21 04/24/21 11:10 11:10 11:10 WBC 4.1 L RBC 4.34 Hgb 13.7 Hct 41.3 MCV 95.2 MCH 31.6 H MCHC 33.2 RDW 14.8 Plt Count 218 MPV 10.4 Neut # (Auto) 2.7 Lymph # (Auto) 0.6 L [place] # (Auto) 0.7 Eos # (Auto) 0.0 Baso # (Auto) 0.0 Absolute Nucleated RBC 0.00 Nucleated RBC % 0.0 Sodium 137 Potassium 3.4 L Chloride 104 Carbon Dioxide 20 L Anion Gap 13.0 BUN 19 Creatinine 0.8 Estimated GFR (MDRD) 70 L Glucose 136 H Calcium 8.2 L Magnesium 1.7 Total Bilirubin 0.5 AST 53 H ALT 29 Alkaline Phosphatase 66 B-Natriuretic Peptide 90 Total Protein 6.8 Albumin 3.2 Globulin 3.6 Albumin/Globulin Ratio 0.9 L Lipase 56 H Nasal Adenovirus (PCR) Nasal B. parapertussis DNA (PCR) Nasal Coronavir 229E PCR Nasal Coronavir HKU1 PCR Nasal Coronavir NL63 PCR Nasal Coronavir OC43 PCR Nasal Enterovir/Rhinovir PCR Nasal Influenza B PCR Nasal Influenza A PCR Nasal Parainfluen 1 PCR Nasal Parainfluen 2 PCR Nasal Parainfluen 3 PCR Nasal Parainfluen 4 PCR Nasal RSV (PCR) Nasal B.pertussis DNA PCR Nasal C.pneumoniae (PCR) Anthony Human Metapneumo PCR Nasal M.pneumoniae (PCR) Nasal SARS-CoV-2 (PCR) 04/24/21 11:10 WBC RBC Hgb Hct MCV MCH MCHC RDW Plt Count MPV Neut # (Auto) Lymph # (Auto) [place] # (Auto) Eos # (Auto) Baso # (Auto) Absolute Nucleated RBC Nucleated RBC % Sodium Potassium Chloride Carbon Dioxide Anion Gap BUN Creatinine Estimated GFR (MDRD) Glucose Calcium Magnesium Total Bilirubin AST ALT Alkaline Phosphatase B-Natriuretic Peptide Total Protein Albumin Globulin Albumin/Globulin Ratio Lipase Nasal Adenovirus (PCR) NOT DETECTED Nasal B. parapertussis DNA (PCR) NOT DETECTED Nasal Coronavir 229E PCR NOT DETECTED Nasal Coronavir HKU1 PCR NOT DETECTED Nasal Coronavir NL63 PCR NOT DETECTED Nasal Coronavir OC43 PCR NOT DETECTED Nasal Enterovir/Rhinovir PCR NOT DETECTED Nasal Influenza B PCR NOT DETECTED Nasal Influenza A PCR NOT DETECTED Nasal Parainfluen 1 PCR NOT DETECTED Nasal Parainfluen 2 PCR NOT DETECTED Nasal Parainfluen 3 PCR NOT DETECTED Nasal Parainfluen 4 PCR NOT DETECTED Nasal RSV (PCR) NOT DETECTED Nasal B.pertussis DNA PCR NOT DETECTED Nasal C.pneumoniae (PCR) NOT DETECTED Anthony Human Metapneumo PCR NOT DETECTED Nasal M.pneumoniae (PCR) NOT DETECTED Nasal SARS-CoV-2 (PCR) DETECTED A - Rads (name of study) chest xray Radiology: Prelim report reviewed, See rad report (Peripheral interstitial pattern consistent with fluid or diffuse pneumonia.) PD MEDICAL DECISION MAKING - ED course Complexity details: reviewed results, re-evaluated patient (Patient has unlabored breathing on oxygen. Her vitals remained stable. Her heart rhythm a ctually changed to atrial fibrillation while in the ER with a maximal rate of approximately 110. She did not have any chest pain or lightheadedness with it.), considered differential (Previous home Covid test positive. Has increasing pneumonia symptoms now 2 weeks into the illness. Consider bacterial secondary infection as well. She is hypoxic and will need hospitalization for all these problems.), d/w patient, d/w risk and insurance consultant (hospitalist. ) Departure - Departure Disposition: 66 [facility] DC/Xfer Clinical Impression: COVID-19, Hypoxia, New onset atrial fibrillation Pneumonia Qualifiers: Pneumonia type: due to unspecified organism Laterality: unspecified laterality Lung location: unspecified part of lung Qualified Code(s): J18.9 - Pneumonia, unspecified organism Condition: Stable Record reviewed to determine appropriate education?: Yes Discharge Date/Time: 04/24/21 13:30
[2021-04-24] MEDS ORDERED: AZITHROMYCIN 250 MG TABLET PO STA (11:22)
[2021-04-24] MEDS ORDERED: SODIUM CHLORIDE 0.9% 1,000 ML IV STA (11:22)
[2021-04-24] MEDS ORDERED: ALBUTEROL 1 PUFF INH STA (11:22)
[2021-04-24] MEDS ORDERED: cefTRIAXone 1 GM VIAL IVP STA (11:22)
[2021-04-24] MEDS ORDERED: BUDESONIDE 0.5 MG/2 ML NEB INH STA (11:23)
[2021-04-24 11:29] LABS: HCT - HEMATOCRIT 41.3 % (37.0-47.0); HGB - HEMOGLOBIN 13.7 g/dL (12.0-16.0); LYMPHOCYTES # (AUTO) 0.6 10^3/uL (1.5-3.5); MEAN CORPUSCULAR HEMOGLOBIN 31.6 pg (27.0-31.0); MEAN CORPUSCULAR HGB CONC 33.2 g/dL (32.0-36.0); MEAN CORPUSCULAR VOLUME 95.2 fL (81.0-99.0); MEAN PLATELET VOLUME 10.4 fL (7.9-10.8); MONOCYTES # (AUTO) 0.7 10^3/uL (0.0-1.0); MONOCYTES % (AUTO) 17.6 %; NEUTROPHILS # (AUTO) 2.7 10^3/uL (1.5-6.6); NEUTROPHILS % (AUTO) 67.2 %; PLT - PLATELET COUNT 218 10^3/uL (130-450); RED BLOOD COUNT 4.34 10^6/uL (4.20-5.40); RED CELL DISTRIBUTION WIDTH 14.8 % (12.0-15.0); WHITE BLOOD COUNT 4.1 x10^3/uL (4.8-10.8)
[2021-04-24 11:39] LABS: ALBUMIN 3.2 g/dL (3.2-5.5); ALBUMIN/GLOBULIN RATIO 0.9 (1.0-2.2); BILIRUBIN,TOTAL 0.5 mg/dL (0.2-1.0); CALCIUM 8.2 mg/dL (8.5-10.3); CREATININE 0.8 mg/dL (0.4-1.0); MAGNESIUM 1.7 mg/dL (1.7-2.8); POTASSIUM 3.4 mmol/L (3.5-5.0); TOTAL PROTEIN 6.8 g/dL (6.7-8.2)
--- NOTE | 2021-04-24 12:12 | XRAY Report ---
PROCEDURE: Chest 1 View X-Ray INDICATIONS: chest pain TECHNIQUE: One view of the chest was acquired. COMPARISON: None FINDINGS: Surgical changes and devices: None. Lungs and pleura: Bilateral peripheral interstitial infiltrative densities are noted in the bilateral lower lung zones. Pleural space clear. Mediastinum: Mediastinal contours appear normal. Heart size is normal. Bones and chest wall: No suspicious bony lesions. Overlying soft tissues appear unremarkable. IMPRESSION: 1. Peripheral interstitial pattern may reflect chronic interstitial changes versus interstitial infil trates. Reviewed by: Fortunato Murphy MD on 04/24/2021 11:11 AM [facility] Approved by: Fortunato Murphy MD on 04/24/2021 11:11 AM [facility] Station ID: [id number]
[2021-04-24 12:34] LABS: B. PARAPERTUSSIS- RESP PCR PAN NOT DETECTED; B. PERTUSSIS- RESP PCR PANEL NOT DETECTED; C. PNEUMONIAE- RESP PCR PANEL NOT DETECTED; CORONAVIRUS 229E-RESP PCR NOT DETECTED; CORONAVIRUS HKU1-RESP PCR NOT DETECTED; CORONAVIRUS NL63-RESP PCR NOT DETECTED; CORONAVIRUS OC43-RESP PCR NOT DETECTED; HUMAN METAPNEUMOVIRUS NOT DETECTED; INFLUENZA A- RESP PCR PANEL NOT DETECTED; INFLUENZA B - RESP PCR PANEL NOT DETECTED; M. PNEUMONIAE- RESP PCR PANEL NOT DETECTED; PARAINFLUENZA VIRUS 1 NOT DETECTED; PARAINFLUENZA VIRUS 2 NOT DETECTED; PARAINFLUENZA VIRUS 3 NOT DETECTED; PARAINFLUENZA VIRUS 4 NOT DETECTED; RHINOVIRUS/ENTEROVIRUS NOT DETECTED; RSV- RESP PCR PANEL NOT DETECTED; SARS-CoV-2 -RESP PCR PANEL DETECTED
[2021-04-24] MEDS ORDERED: ONDANSETRON 4 MG/2 ML VIAL IVP PRN (12:40)
[2021-04-24] MEDS ORDERED: SODIUM CHLORIDE FLUSH 0.9% 10 ML SYRINGE IVP PRN (12:40)
[2021-04-24] MEDS ORDERED: oxyCODONE 5 MG TABLET PO PRN (12:40)
--- NOTE | 2021-04-24 12:47 | HISTORY & PHYSICAL EXAMINATION ---
Chief Complaint - Chief Complaint Chief Complaint: dyspnea and hypoxia History of Present Illness - Admitted From [facility] - History Obtained From Records Reviewed: yes History obtained from: patient and medical records - History of Present Illness HPI Comment/Other: Patient is a 75-year-old female who presented to the ED with complaint of dyspnea, cough and a low-grade fever. She reported a temperature of 99 F today and the highest temperature she has had this 101 F. On 04/08/2021 she tested positive for COVID-19. She is unvaccinated for COVID19. Her symptoms of dyspnea, fever and cough started 5 days ago. She came in today because it became significant. Her cough is pink-tinged. She reports nausea but no vom iting. She denies abdominal pain or diarrhea. In the ED she was noted to have an oxygen saturation of 86% on room air. She required 4 L of oxygen to maintain her oxygen around 94%. She was also noted to be in atrial fibrillation with heart rate as high as the 120s. She does not have a previous history of atrial fibrillation. As a result of her presentation she is being admitted for further management. 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 The patient is originally from [facility] and spent many years in [facility]. She is and lost her to cancer about 14 years ago. She has a degree in psychology. She has 5 daughters The patient does not smoke cigarettes, she rarely drinks alcohol and denies any illicit drug use. - POLST Patient has POLST: No POLST Status: Full Code Meds/Allgy - Home Medications Home Medications: Ambulatory Orders Medication Instructions Recorded Confirmed Clopidogrel Bisulfate [Plavix] 75 mg PO DAILY 05/22/16 04/24/21 Methotrexate [Methotrexate Sodium] 20 mg PO TH 05/22/16 04/24/21 Rosuvastatin Calcium [Crestor] 5 mg PO DAILY 05/22/16 04/24/21 Folic Acid 1 mg PO DAILY 02/06/17 04/24/21 Pantoprazole [Protonix] 40 mg PO DAILY 04/24/21 04/24/21 - Allergies Allergies/Adverse Reactions: Allergies Allergy/AdvReac Type Severity Reaction Status Date / Time adhesive AdvReac Rash Verified 04/24/21 10:41 lisinopril AdvReac Unknown Verified 04/24/21 10:41 Review of Systems - Constitutional Constitutional: reports: Fever, Chills, Weakness - Eyes Eyes: denies: Pain, Vision loss, Dipolpia - Ears, Nose & Throat Ears, Nose & Throat: denies: Ear pain, Sore throat - Cardiovascular Cariovascular: denies: Irregular heart rate, Palpitations, Chest pain, Lightheadedness, Syncope - Respiratory Respiratory: reports: Cough, Sputum production, SOB at rest, SOB with exertion - Gastrointestinal Gastrointestinal: reports: Nausea, Reflux/heartburn. denies: Abdominal pain, Abdominal distention, Constipation, Diarrhea, Vomiting - Genitourinary Genitourinary: denies: Dysuria, Frequency, Urgency, Hematuria - Musculoskeletal Musculoskeletal: denies: Muscle pain, Back pain, Muscle aches - Integumentary Integumentary: denies: Rash, Pruritis, Lesions, Dryness - Neurological Neurological: denies: General weakness, Focal weakness, Headache, Dizziness - Psychiatric Psychiatric: denies: Depression, Anxiety - Endocrine Endocrine: denies: Polyuria, Polydypsia - Hematologic/Lymphatic Hematologic/Lymphatic: denies: Anemia, Bruising, Petechiae Prior Level of Functionality: She is independent of activities of daily living. She lives with one of her da tysonhters and their family. She works out 3 times a week. Exam - Vital Signs Vital Signs: Vital Signs x48h Temp Pulse Resp BP Pulse Ox 04/24/21 12:30 100 18 132/66 H 100 04/24/21 12:12 119 H 22 04/24/21 12:00 96 13 113/77 94 04/24/21 11:30 85 24 96/62 94 04/24/21 11:24 88 25 H 99/63 91 L 04/24/21 10:55 88 18 97/69 93 02/13/22 10:42 37.7 C 91 20 122/76 86 L - Physical Exam General Appearance: positive: Alert, Mild distress (Respiratory) ENT: positive: No signs of dehydration Neck: positive: No JVD, Trachea midline Respiratory: positive: Chest non-tender, Other (Mild dyspnea. Bilateral crackles) Cardiovascular: positive: Irregularly irregular, Tachycardia Abdomen: positive: Non-tender, No organomegaly, Nml bowel sounds. negative: Guarding, Rebound Skin: positive: Color nml, No rash, Warm, Dry Extremities: positive: Non-tender, Full ROM, Nml appearance. negative: No pedal edema, Pedal edema Neurologic/Psychiatric: positive: Oriented x3, Mood/affect nml Conclusion/Plan - Problem List (1) Acute respiratory failure with hypoxia Conclusion/Plan: Secondary to COVID-19 infection. However cannot rule out a bacterial pneumonia. Chest x-ray done on 04/24/2021 showed peripheral interstitial pattern which may reflect chronic interstitial changes versus interstitial infiltrates. Patient initially tested positive for COVID-19 on 04/08/2021. In this time the patient has been dyspneic and febrile. Today oxygen saturation was 86% on room air and required 4 L of oxygen via nasal cannula to maintain oxygen saturation at 94%. We will continue supplemental oxygen. Dexamethasone 6 mg IV daily ordered. Will not prescribe remdesivir given that it is currently about 16 days since diagnosis. Rocephin and azithromycin ordered. Lovenox 40 mg subcu daily for DVT prophylaxis. D-dimer pending. (2) COVID-19 Conclusion/Plan: On supplemental oxygen via nasal cannula. Oxygen saturation currently 94% on 4 L of oxygen. Dexamethasone 6 mg IV daily ordered. Rocephin and azithromycin ordered. (3) New onset atrial fibrillation Conclusion/Plan: Likely exacerbated by respiratory failure. Rate currently fluctuates between 90 and 120. Diltiazem 30 mg p.o. every 6 hours scheduled. 2D echocardiogram ordered for 04/25/2021 (4) Hyperlipidemia Conclusion/Plan: Patient takes rosuvastatin at home. Atorvastatin 40 mg p.o. every afternoon ordered. (5) Hypertension Conclusion/Plan: Currently normotensive. On diltiazem 30 mg p.o. every 6 hours scheduled. Qualifiers: Hypertension type: essential hypertension (6) Hypokalemia Conclusion/Plan: Patient given a dose of potassium chloride p.o. 40 mEq. She will also receive 2 g of magnesium sulfate IV x1 for magnesium of 1.7 (7) Rheumatoid arthritis Conclusion/Plan: Patient takes methotrexate 2.5 mg IM every . We will hold methotrexate for now while also treating a potential bacterial infection (8) GERD (gastroesophageal reflux disease) Conclusion/Plan: Protonix 40 mg p.o. daily. - Lab Results Fish Bones: 04/24/21 11:10 04/24/21 11:10 Core Measures - Anticipated LOS I expect patient to be DC'd or transferred within 96 hours.: Yes - DVT/VTE - Prophylaxis VTE/DVT Device ordered at admit?: Yes VTE/DVT Prophylaxis med ordered at admit?: Yes
[2021-04-24] MEDS ORDERED: ALBUTEROL 1 PUFF INH PRN (12:49)
[2021-04-24] MEDS ORDERED: diltiaZEM INJ 5 MG/ML VIAL IVP STA (12:50)
[2021-04-24] MEDS: DEXAMETHASONE 4 MG/ML VIAL IVP SCH (14:03)
[2021-04-24] MEDS: ENOXAPARIN 40 MG/0.4 ML SYRINGE SUBQ SCH (14:05)
[2021-04-24] MEDS ORDERED: POTASSIUM CHLORIDE 20 MEQ TABLET PO ONE (14:30)
[2021-04-24] MEDS ORDERED: MAGNESIUM SULFATE 2 GRAM 2 GM/50 ML BAG IV ONE (14:30)
[2021-04-24] MEDS: diltiaZEM 30 MG TABLET PO SCH ×2 (18:55→23:46)
[2021-04-24] MEDS: SODIUM CHLORIDE FLUSH 0.9% 10 ML SYRINGE IVP SCH ×2 (19:25→23:47)
[2021-04-24] MEDS: ATORVASTATIN 40 MG TABLET PO SCH (21:45)
[2021-04-25 05:20] LABS: HCT - HEMATOCRIT 39.1 % (37.0-47.0); HGB - HEMOGLOBIN 12.9 g/dL (12.0-16.0); LYMPHOCYTES % (AUTO) 28.3 %; MEAN CORPUSCULAR HEMOGLOBIN 30.9 pg (27.0-31.0); MEAN CORPUSCULAR VOLUME 93.8 fL (81.0-99.0); MEAN PLATELET VOLUME 10.1 fL (7.9-10.8); MONOCYTES % (AUTO) 21.5 %; NEUTROPHILS % (AUTO) 49.3 %; PLT - PLATELET COUNT 229 10^3/uL (130-450); RED BLOOD COUNT 4.17 10^6/uL (4.20-5.40); RED CELL DISTRIBUTION WIDTH 14.9 % (12.0-15.0); WHITE BLOOD COUNT 2.2 x10^3/uL (4.8-10.8)
[2021-04-25 05:24] LABS: CALCIUM 8.4 mg/dL (8.5-10.3); CREATININE 0.7 mg/dL (0.4-1.0); MAGNESIUM 2.3 mg/dL (1.7-2.8); POTASSIUM 4.4 mmol/L (3.5-5.0)
[2021-04-25 06:13] LABS: ABNORMAL LYMPHS % (MANUAL) 2 %; BAND NEUTROPHILS % (MANUAL) 3 %; BASOPHILS % (MANUAL) 1 %; LYMPHOCYTES # (MANUAL) 0.5 10^3/uL (1.5-3.5); LYMPHOCYTES % (MANUAL) 22 %; MONOCYTES # (MANUAL) 0.2 10^3/uL (0.0-1.0); NEUTROPHILS # (MANUAL) 1.5 10^3/uL (1.5-6.6)
[2021-04-25 06:14] LABS: DIFFERENTIAL COMMENT MANUAL DIFFERENTIAL; PLATELET ESTIMATE, MANUAL NORMAL (130-450,000) (NORMAL); PLATELET MORPHOLOGY NORMAL APPEARANCE (NORMAL); RBC MORPHOLOGY (MULTIPLE) NORMAL APPEARANCE (NORMAL); WBC MORPHOLOGY (MULTIPLE) NORMAL APPEARANCE (NORMAL)
[2021-04-25] MEDS: diltiaZEM 30 MG TABLET PO SCH ×3 (06:25→19:02)
[2021-04-25] MEDS: PANTOPRAZOLE 40 MG TABLET PO SCH (06:28)
[2021-04-25] MEDS: DEXAMETHASONE 4 MG/ML VIAL IVP SCH (08:19)
[2021-04-25] MEDS: SODIUM CHLORIDE FLUSH 0.9% 10 ML SYRINGE IVP SCH ×2 (08:20→16:18)
[2021-04-25] MEDS: CLOPIDOGREL 75 MG TABLET PO SCH (08:21)
[2021-04-25] MEDS: FOLIC ACID 1 MG TABLET PO SCH (08:21)
[2021-04-25] MEDS: ENOXAPARIN 40 MG/0.4 ML SYRINGE SUBQ SCH (08:21)
[2021-04-25] MEDS: cefTRIAXone 1 GM in SODIUM CHLORIDE 0.9% MINIBAG 100 ML IV SCH (08:23)
--- NOTE | 2021-04-25 08:28 | PROVIDER PROGRESS NOTE ---
Assessment/Plan - Problem List (1) Acute respiratory failure with hypoxia Assessment/Plan: Secondary to COVID-19 infection. However cannot rule out a bacterial pneumonia. Chest x-ray done on 04/24/2021 showed peripheral interstitial pattern which may reflect chronic interstitial changes versus interstitial infiltrates. Patient initially tested positive for COVID-19 on 04/08/2021. Currently on 13 L of oxygen via oxygen mask with oxygen saturation at 93%. Dexamethasone 6 mg IV daily Remdesivir not given because it has been about 17 days since diagnosis. Rocephin and azithromycin initiated on 04/24/2021 Lovenox 40 mg subcu daily for DVT prophylaxis. (2) COVID-19 Assessment/Plan: Currently on 13 L of oxygen via oxygen mask with oxygen saturation at 93%. Dexamethasone 6 mg IV daily Remdesivir not given because it has been about 17 days since diagnosis. Rocephin and azithromycin initiated on 04/24/2021 Lovenox 40 mg subcu daily for DVT prophylaxis. (3) New onset atrial fibrillation Assessment/Plan: Likely exacerbated by respiratory failure. Heart rate currently fluctuates between 60 and 90. Diltiazem 30 mg p.o. every 6 hours scheduled. 2D echocardiogram ordered for 04/25/2021 pending (4) Hyperlipidemia Assessment/Plan: Patient takes rosuvastatin at home. Atorvastatin 40 mg p.o. every afternoon ordered. (5) Hypertension Qualifiers: Hypertension type: essential hypertension Assessment/Plan: Currently normotensive. On diltiazem 30 mg p.o. every 6 hours scheduled. (6) Hypokalemia Assessment/Plan: Resolved. Potassium level is 4.4 and magnesium 2.3 (7) Rheumatoid arthritis Assessment/Plan: Patient takes methotrexate 2.5 mg IM every . We will hold methotrexate for now while also treating a potential bacterial infection (8) GERD (gastroesophageal reflux disease) Assessment/Plan: Protonix 40 mg p.o. daily. - Current Meds Current Meds: Current Medications Generic Name Dose Route Start Last Admin Trade Name Freq PRN Reason Stop Dose Admin Albuterol 2 puffs 04/24/21 12:49 04/24/21 17:39 Albuterol 1 Puff INH 2 puffs Q4H PRN Administration Dyspnea Atorvastatin Calcium 40 mg 04/24/21 21:00 04/24/21 21:45 Atorvastatin 40 Mg Tablet PO 40 mg QPM KINSEY Administration Clopidogrel Bisulfate 75 mg 04/25/21 09:00 04/25/21 08:21 Clopidogrel 75 Mg Tablet PO 75 mg DAILY KINSEY Administration Dexamethasone 6 mg 04/24/21 14:30 04/25/21 08:19 Dexamethasone 4 Mg/Ml Vial IVP 05/03/21 14:29 6 mg DAILY KINSEY Administration Diltiazem HCl 30 mg 04/24/21 18:00 04/25/21 06:25 Diltiazem 30 Mg Tablet PO 30 mg Q6HR KINSEY Administration Enoxaparin Sodium 40 mg 04/24/21 14:30 04/25/21 08:21 Enoxaparin 40 Mg/0.4 Ml Syringe SUBQ 40 mg DAILY KINSEY Administration Folic Acid 1 mg 04/25/21 09:00 04/25/21 08:21 Folic Acid 1 Mg Tablet PO 1 mg DAILY KINSEY Administration Pantoprazole Sodium 40 mg 04/25/21 07:00 04/25/21 06:28 Pantoprazole 40 Mg Tablet PO 40 mg QDAC KINSEY Administration Sodium Chloride 10 ml 04/24/21 12:40 04/24/21 14:12 Sodium Chloride Flush 0.9% 10 Ml Syringe IVP 10 ml PRN PRN Administration NEEDED PER PROVIDER ORDERS Sodium Chloride 10 ml 04/24/21 17:00 04/25/21 08:20 Sodium Chloride Flush 0.9% 10 Ml Syringe IVP 10 ml 0100,0900,1700 KINSEY Administration - Lab Result Fish Bone Diagrams: 04/25/21 05:05 04/25/21 05:05 - Additional Planning My Orders: My Active Orders 04/24/21 Lunch Regular Diet [DIET] 04/24/21 12:40 Activity Orders [RC] Q2HR IO [RC] IOSHIFT Initiate Bowel Care Protocol [RC] .protocol Initiate Line Care Protocol [RC] QSHIFT Initiate Personal Care Protoco [RC] .protocol Oxygen Therapy [RC] .PRN Telemetry- [RC] Q4HR Vital Signs [RC] 0800,1600,0000 Acetaminophen [Tylenol] 650 mg PO Q4HR PRN Ondansetron Inj [Zofran Inj] 4 mg IVP Q6HR PRN Sodium Chloride Flush 0.9% [Normal Saline Flush 0.9%] 10 ml IVP PRN PRN oxyCODONE [Roxicodone] 5 mg PO Q4HR PRN Code Status [OTHERS] Routine Condition of Patient [OTHERS] Routine DVT Prophylaxis [OTHERS] Routine 04/24/21 12:49 Mdi: Albuterol 2 puffs INH Q4H PRN 04/24/21 12:59 Blood Culture [CULTURE, BLOOD #1] [RM] Stat 04/24/21 13:03 Blood Culture [CULTURE, BLOOD #2] [RM] Stat 04/24/21 14:30 Enoxaparin [Lovenox] 40 mg SUBQ DAILY dexAMETHasone [Decadron] 6 mg IVP DAILY 04/24/21 14:50 RT [Nebulizer/MDI Tx.] [RC] .q4prn 04/24/21 17:00 Sodium Chloride Flush 0.9% [Normal Saline Flush 0.9%] 10 ml IVP 0100,0900,1700 04/24/21 18:00 diltiaZEM [Cardizem] 30 mg PO Q6HR 04/24/21 21:00 Atorvastatin [Lipitor] 40 mg PO QPM 04/25/21 07:00 Pantoprazole [Protonix] 40 mg PO QDAC 04/25/21 08:00 Echo Transthoracic Complete [ECHO] Routine 04/25/21 09:00 Azithromycin Inj [Zithromax Inj] 500 mg Sodium Chloride 0.9% [Normal Saline 0.9%] 250 ml IV DAILY Clopidogrel [Plavix] 75 mg PO DAILY Folic Acid 1 mg PO DAILY cefTRIAXone [Rocephin] 1 gm Sodium Chloride 0.9% Minibag [Normal Saline 0.9% Minibag] 100 ml IV DAILY 04/26/21 05:00 BMP - BASIC METABOLIC PANEL [CHEM] DAILYLAB CBC - COMP BLD CT W/AUTO DIFF [HEME] DAILYLAB 04/27/21 05:00 BMP - BASIC METABOLIC PANEL [CHEM] DAILYLAB CBC - COMP BLD CT W/AUTO DIFF [HEME] DAILYLAB 04/28/21 05:00 BMP - BASIC METABOLIC PANEL [CHEM] DAILYLAB CBC - COMP BLD CT W/AUTO DIFF [HEME] DAILYLAB 04/29/21 05:00 BMP - BASIC METABOLIC PANEL [CHEM] DAILYLAB CBC - COMP BLD CT W/AUTO DIFF [HEME] DAILYLAB 04/30/21 05:00 BMP - BASIC METABOLIC PANEL [CHEM] DAILYLAB CBC - COMP BLD CT W/AUTO DIFF [HEME] DAILYLAB 05/01/21 05:00 BMP - BASIC METABOLIC PANEL [CHEM] DAILYLAB CBC - COMP BLD CT W/AUTO DIFF [HEME] DAILYLAB Subjective - Subjective Patient Reports: Other (Patient resting comfortably in bed. She reports breathing better. However her oxygen requirement increased from 4 L on N/C to 10 L of oxygen via oxymask.) Objective Vital Signs: Vital Signs - 24 hr 04/24/21 04/24/21 04/24/21 10:42 10:55 11:24 Temperature 37.7 C Heart Rate 91 88 88 Heart Rate [ Monitoring electrodes] Respiratory 20 18 25 H Rate Blood Pressure 122/76 97/69 99/63 Blood Pressure [Left Brachial artery] Blood Pressure [Right Brachial artery] O2 Saturation 86 L 93 91 L 04/24/21 04/24/21 04/24/21 11:30 12:00 12:12 Temperature Heart Rate 85 96 119 H Heart Rate [ Monitoring electrodes] Respiratory 24 13 22 Rate Blood Pressure 96/62 113/77 Blood Pressure [Left Brachial artery] Blood Pressure [Right Brachial artery] O2 Saturation 94 94 04/24/21 04/24/21 04/24/21 12:30 13:00 13:41 Temperature 36.9 C Heart Rate 100 107 H Heart Rate [ 100 Monitoring electrodes] Respiratory 18 17 20 Rate Blood Pressure 132/66 H 130/62 Blood Pressure [Left Brachial artery] Blood Pressure 111/59 L [Right Brachial artery] O2 Saturation 100 92 94 04/24/21 04/24/21 04/24/21 16:53 17:47 20:23 Temperature 37.1 C Heart Rate 80 Heart Rate [ 83 78 Monitoring electrodes] Respiratory 20 21 19 Rate Blood Pressure Blood Pressure 123/64 [Left Brachial artery] Blood Pressure 138/70 H [Right Brachial artery] O2 Saturation 92 95 04/24/21 04/24/21 04/25/21 23:33 23:46 00:01 Temperature 36.9 C Heart Rate Heart Rate [ 60 Monitoring electrodes] Respiratory 20 Rate Blood Pressure 111/67 Blood Pressure 111/67 [Left Brachial artery] Blood Pressure [Right Brachial artery] O2 Saturation 91 L 93 04/25/21 04/25/21 04/25/21 01:04 03:00 03:30 Temperature Heart Rate Heart Rate [ Monitoring electrodes] Respiratory 22 Rate Blood Pressure Blood Pressure [Left Brachial artery] Blood Pressure [Right Brachial artery] O2 Saturation 95 89 L 91 L 04/25/21 04/25/21 04/25/21 04:00 05:23 06:25 Temperature 36.7 C Heart Rate Heart Rate [ 66 Monitoring electrodes] Respiratory 22 20 Rate Blood Pressure 132/54 H Blood Pressure [Left Brachial artery] Blood Pressure 144/62 H [Right Brachial artery] O2 Saturation 94 91 L 04/25/21 04/25/21 06:28 08:00 Temperature 36.5 C Heart Rate Heart Rate [ 61 56 L Monitoring electrodes] Respiratory 20 20 Rate Blood Pressure Blood Pressure 132/54 H 130/64 [Left Brachial artery] Blood Pressure [Right Brachial artery] O2 Saturation 92 90 L Oxygen O2 Source Oxymask Oxygen Flow Rate 4 I&O (Last 24 Hrs): Intake and Output Totals x24h 04/23/21 04/24/21 04/25/21 23:59 23:59 23:59 Intake Total 1540 400 Output Total 325 150 Balance 1215 250 General: Alert, Oriented x3, No acute distress HEENT: Atraumatic, PERRLA, EOMI Neck: Supple, No JVD Neuro: Alert, Oriented Times 3 Cardiovascular: Regular rate, Normal S1, Normal S2, No murmurs Respiratory: Chest non-tender, Other (Mild dyspnea. Mild crackles in lung bases. No change from previous day.) Abdomen: Normal bowel sounds, Soft, No tenderness, No masses Extremities: No clubbing, No edema Skin: No rashes, No breakdown, No significant lesion - Results Results: Laboratory Results WBC 2.2 x10^3/uL (4.8-10.8) L 04/25/21 05:05 RBC 4.17 10^6/uL (4.20-5.40) L 04/25/21 05:05 Hgb 12.9 g/dL (12.0-16.0) 04/25/21 05:05 Hct 39.1 % (37.0-47.0) 04/25/21 05:05 MCV 93.8 fL (81.0-99.0) 04/25/21 05:05 MCH 30.9 pg (27.0-31.0) 04/25/21 05:05 MCHC 33.0 g/dL (32.0-36.0) 04/25/21 05:05 RDW 14.9 % (12.0-15.0) 04/25/21 05:05 Plt Count 229 10^3/uL (130-450) 04/25/21 05:05 MPV 10.1 fL (7.9-10.8) 04/25/21 05:05 Neut # (Auto) Not Reportable 04/25/21 05:05 Lymph # (Auto) Not Reportable 04/25/21 05:05 [place] # (Auto) Not Reportable 04/25/21 05:05 Eos # (Auto) Not Reportable 04/25/21 05:05 Baso # (Auto) Not Reportable 04/25/21 05:05 Absolute Nucleated RBC Not Reportable 04/25/21 05:05 Total Counted 100 04/25/21 05:05 Band Neuts % (Manual) 3 % (0-10) 04/25/21 05:05 Abnorm Lymph % (Manual) 2 % 04/25/21 05:05 Nucleated RBC % Not Reportable 04/25/21 05:05 Neutrophils # (Manual) 1.5 10^3/uL (1.5-6.6) 04/25/21 05:05 Lymphocytes # (Manual) 0.5 10^3/uL (1.5-3.5) L 04/25/21 05:05 Monocytes # (Manual) 0.2 10^3/uL (0.0-1.0) 04/25/21 05:05 Eosinophils # (Manual) 0.0 10^3/uL (0-0.7) 04/25/21 05:05 Basophils # (Manual) 0.0 10^3/uL (0-0.1) 04/25/21 05:05 Differential Comment MANUAL DIFFERENTIAL 04/25/21 05:05 WBC Morphology NORMAL APPEARANCE (NORMAL) 04/25/21 05:05 Platelet Estimate NORMAL (130-450,000) (NORMAL) 04/25/21 05:05 Platelet Morphology NORMAL APPEARANCE (NORMAL) 04/25/21 05:05 RBC Morph Micro Appear NORMAL APPEARANCE (NORMAL) 04/25/21 05:05 D-Dimer 470.8 ng/mL (200.0-255.0) H 04/24/21 14:06 Sodium 139 mmol/L (135-145) 04/25/21 05:05 Potassium 4.4 mmol/L (3.5-5.0) 04/25/21 05:05 Chloride 106 mmol/L (101-111) 04/25/21 05:05 Carbon Dioxide 22 mmol/L (21-32) 04/25/21 05:05 Anion Gap 11.0 (6-13) 04/25/21 05:05 BUN 17 mg/dL (6-20) 04/25/21 05:05 Creatinine 0.7 mg/dL (0.4-1.0) 04/25/21 05:05 Estimated GFR (MDRD) 82 (>89) L 04/25/21 05:05 Glucose 162 mg/dL (70-100) H 04/25/21 05:05 Calcium 8.4 mg/dL (8.5-10.3) L 04/25/21 05:05 Magnesium 2.3 mg/dL (1.7-2.8) 04/25/21 05:05 Total Bilirubin 0.5 mg/dL (0.2-1.0) 04/24/21 11:10 AST 53 IU/L (10-42) H 04/24/21 11:10 ALT 29 IU/L (10-60) 04/24/21 11:10 Alkaline Phosphatase 66 IU/L (42-121) 04/24/21 11:10 B-Natriuretic Peptide 90 pg/mL (5-100) 04/24/21 11:10 Total Protein 6.8 g/dL (6.7-8.2) 04/24/21 11:10 Albumin 3.2 g/dL (3.2-5.5) 04/24/21 11:10 Globulin 3.6 g/dL (2.1-4.2) 04/24/21 11:10 Albumin/Globulin Ratio 0.9 (1.0-2.2) L 04/24/21 11:10 Lipase 56 U/L (22-51) H 04/24/21 11:10 Nasal Adenovirus (PCR) NOT DETECTED 04/24/21 11:10 Nasal B. parapertussis DNA (PCR) NOT DETECTED 04/24/21 11:10 Nasal Coronavir 229E PCR NOT DETECTED 04/24/21 11:10 Nasal Coronavir HKU1 PCR NOT DETECTED 04/24/21 11:10 Nasal Coronavir NL63 PCR NOT DETECTED 04/24/21 11:10 Nasal Coronavir OC43 PCR NOT DETECTED 04/24/21 11:10 Nasal Enterovir/Rhinovir PCR NOT DETECTED 04/24/21 11:10 Nasal Influenza B PCR NOT DETECTED 04/24/21 11:10 Nasal Influenza A PCR NOT DETECTED 04/24/21 11:10 Nasal Parainfluen 1 PCR NOT DETECTED 04/24/21 11:10 Nasal Parainfluen 2 PCR NOT DETECTED 04/24/21 11:10 Nasal Parainfluen 3 PCR NOT DETECTED 04/24/21 11:10 Nasal Parainfluen 4 PCR NOT DETECTED 04/24/21 11:10 Nasal RSV (PCR) NOT DETECTED 04/24/21 11:10 Nasal B.pertussis DNA PCR NOT DETECTED 04/24/21 11:10 Nasal C.pneumoniae (PCR) NOT DETECTED 04/24/21 11:10 Anthony Human Metapneumo PCR NOT DETECTED 04/24/21 11:10 Nasal M.pneumoniae (PCR) NOT DETECTED 04/24/21 11:10 Nasal SARS-CoV-2 (PCR) DETECTED A 04/24/21 11:10 - Procedures Procedures: Procedures EXCISION OF ASCENDING COLON, ENDO, DIAGN (05/22/16) ABX Reporting Has patient been on IV antibiotics over the past 48 hours?: Yes
[2021-04-25] MEDS: AZITHROMYCIN INJ 500 MG in SODIUM CHLORIDE 0.9% 250 ML IV SCH (09:29)
--- NOTE | 2021-04-25 11:45 | PHARMACY PROGRESS NOTE ---
- Best Possible Medication History Admit Date and Time: 04/24/21 1240 Processed by: Nursing Medication History completed: Yes As the person ultimately responsible for medication therapy, providers are able to order a medication from an existing home medication list in [facility] via the "Reconcile Routine" prior to Confirmation of that medication by director decision support. Such practice is discouraged except when the physician, in their clinical judgment, deems that a medical need exists for a medication without regard to previous use.
[2021-04-25] MEDS: ACETAMINOPHEN 325 MG TABLET PO PRN (16:18)
[2021-04-25] MEDS: ATORVASTATIN 40 MG TABLET PO SCH (21:09)
[2021-04-25] MEDS: polyethylene glycoL 3350 17 GM PACKET PO SCH (21:09)
[2021-04-26] MEDS: diltiaZEM 30 MG TABLET PO SCH ×2 (00:52→06:57)
[2021-04-26] MEDS: SODIUM CHLORIDE FLUSH 0.9% 10 ML SYRINGE IVP SCH ×3 (00:53→16:52)
[2021-04-26 05:41] LABS: BASOPHILS % (AUTO) 0.1 %; HGB - HEMOGLOBIN 13.4 g/dL (12.0-16.0); LYMPHOCYTES % (AUTO) 9.4 %; MEAN CORPUSCULAR HEMOGLOBIN 30.7 pg (27.0-31.0); MEAN CORPUSCULAR HGB CONC 32.7 g/dL (32.0-36.0); MEAN PLATELET VOLUME 10.3 fL (7.9-10.8); MONOCYTES % (AUTO) 9.6 %; NEUTROPHILS % (AUTO) 80.5 %; PLT - PLATELET COUNT 293 10^3/uL (130-450); RED BLOOD COUNT 4.36 10^6/uL (4.20-5.40); RED CELL DISTRIBUTION WIDTH 14.8 % (12.0-15.0); WHITE BLOOD COUNT 10.9 x10^3/uL (4.8-10.8)
[2021-04-26 05:45] LABS: ABNORMAL LYMPHS % (MANUAL) 0 %; BAND NEUTROPHILS % (MANUAL) 0 %
[2021-04-26 05:49] LABS: CALCIUM 8.6 mg/dL (8.5-10.3); CREATININE 0.6 mg/dL (0.4-1.0)
[2021-04-26 06:04] LABS: LYMPHOCYTES # (MANUAL) 1.3 10^3/uL (1.5-3.5); LYMPHOCYTES % (MANUAL) 12 %; MONOCYTES # (MANUAL) 0.9 10^3/uL (0.0-1.0); NEUTROPHILS # (MANUAL) 8.7 10^3/uL (1.5-6.6); PLATELET ESTIMATE, MANUAL NORMAL (130-450,000) (NORMAL); PLATELET MORPHOLOGY NORMAL APPEARANCE (NORMAL); RBC MORPHOLOGY (MULTIPLE) NORMAL APPEARANCE (NORMAL); WBC MORPHOLOGY (MULTIPLE) NORMAL APPEARANCE (NORMAL)
[2021-04-26 06:05] LABS: DIFFERENTIAL COMMENT MANUAL DIFFERENTIAL
[2021-04-26] MEDS: PANTOPRAZOLE 40 MG TABLET PO SCH (06:58)
[2021-04-26] MEDS: DEXAMETHASONE 4 MG/ML VIAL IVP SCH (08:38)
[2021-04-26] MEDS: ENOXAPARIN 40 MG/0.4 ML SYRINGE SUBQ SCH (08:39)
[2021-04-26] MEDS: FOLIC ACID 1 MG TABLET PO SCH (08:39)
[2021-04-26] MEDS: CLOPIDOGREL 75 MG TABLET PO SCH (08:39)
[2021-04-26] MEDS: cefTRIAXone 1 GM in SODIUM CHLORIDE 0.9% MINIBAG 100 ML IV SCH (08:44)
[2021-04-26] MEDS: polyethylene glycoL 3350 17 GM PACKET PO SCH (08:46)
[2021-04-26] MEDS: SACCHAROMYCES BOULARDII 250 MG CAPSULE PO SCH ×2 (08:46→16:52)
[2021-04-26] MEDS ORDERED: diltiaZEM CD 120 MG CAPSULE PO SCH (09:00)
[2021-04-26] MEDS: AZITHROMYCIN INJ 500 MG in SODIUM CHLORIDE 0.9% 250 ML IV SCH (10:15)
--- NOTE | 2021-04-26 10:37 | PROVIDER PROGRESS NOTE ---
Assessment/Plan - Problem List (1) Acute respiratory failure with hypoxia Assessment/Plan: 04/26 improved. pt had 98% on 10 liter of O2 and pt is comfortable without acute respiratory Distress on resting now, but pt's O2 saturation drop quickly and she felt significantly short of breathing on exertion. Chest x-ray done on 04/24/2021 showed peripheral interstitial pattern which may reflect chronic interstitial changes versus interstitial infiltrates. Patient initially tested positive for COVID-19 on 04/08/2021. Remdesivir not given because it has been about 17 days since diagnosis. continue Rocephin and azithromycin initiated on 04/24/2021, Lovenox 40 mg subcut daily for DVT prophylaxis, decatron, add probiotics. (2) COVID-19 Assessment/Plan: Patient initially tested positive for COVID-19 on 04/08/2021. Remdesivir not given because it has been about 17 days since diagnosis. continue Rocephin and azithromycin initiated on 04/24/2021, Lovenox 40 mg subcut daily for DVT prophylaxis, decatron, add probiotics. (3) New onset atrial fibrillation Assessment/Plan: pt's HR is controlled. Tele show SR now. switch to PO Cardizem CD, continue home Plavix (4) Hyperlipidemia Assessment/Plan: Patient takes rosuvastatin at home. Atorvastatin 40 mg p.o. every afternoon ordered. (5) Hypertension Currently normotensive. On Cardizem CD 120mg daily, Continue vital signs monitor (6) Hypokalemia Assessment/Plan: Resolved. Potassium level is 4.4 and magnesium 2.3 (7) Rheumatoid arthritis Assessment/Plan: Patient takes methotrexate 2.5 mg IM every . We will hold methotrexate for now while also treating a potential bacterial infection (8) GERD (gastroesophageal reflux disease) Assessment/Plan: Protonix 40 mg p.o. daily. - Current Meds Current Meds: Current Medications Generic Name Dose Route Start Last Admin Trade Name Freq PRN Reason Stop Dose Admin Acetaminophen 650 mg 04/24/21 12:40 04/25/21 16:18 Acetaminophen 325 Mg Tablet PO 650 mg Q4HR PRN Administration Pain 1 to 4 Albuterol 2 puffs 04/24/21 12:49 04/24/21 17:39 Albuterol 1 Puff INH 2 puffs Q4H PRN Administration Dyspnea Atorvastatin Calcium 40 mg 04/24/21 21:00 04/25/21 21:09 Atorvastatin 40 Mg Tablet PO 40 mg QPM [facility] Administration Clopidogrel Bisulfate 75 mg 04/25/21 09:00 04/26/21 08:39 Clopidogrel 75 Mg Tablet PO 75 mg DAILY [facility] Administration Dexamethasone 6 mg 04/24/21 14:30 04/26/21 08:38 Dexamethasone 4 Mg/Ml Vial IVP 05/03/21 14:29 6 mg DAILY [facility] Administration Enoxaparin Sodium 40 mg 04/24/21 14:30 04/26/21 08:39 Enoxaparin 40 Mg/0.4 Ml Syringe SUBQ 40 mg DAILY [facility] Administration Folic Acid 1 mg 04/25/21 09:00 04/26/21 08:39 Folic Acid 1 Mg Tablet PO 1 mg DAILY [facility] Administration Ceftriaxone Sodium 1 gm/ 100 mls @ 200 mls/hr 04/25/21 09:00 04/26/21 09:30 Sodium Chloride IV Infused DAILY [facility] Infusion Pantoprazole Sodium 40 mg 04/25/21 07:00 04/26/21 06:58 Pantoprazole 40 Mg Tablet PO 40 mg QDAC [facility] Administration Polyethylene Glycol 17 gm 04/25/21 19:05 04/26/21 08:46 Polyethylene Glycol 3350 17 Gm Packet PO Not Given DAILY [facility] Saccharomyces Boulardii 250 mg 04/26/21 08:24 04/26/21 08:46 Saccharomyces Boulardii 250 Mg Capsule PO 250 mg BIDWM [facility] Administration Sodium Chloride 10 ml 04/24/21 12:40 04/24/21 14:12 Sodium Chloride Flush 0.9% 10 Ml Syringe IVP 10 ml PRN PRN Administration NEEDED PER PROVIDER ORDERS Sodium Chloride 10 ml 04/24/21 17:00 04/26/21 08:38 Sodium Chloride Flush 0.9% 10 Ml Syringe IVP 10 ml 0100,0900,1700 [facility] Administration - Lab Result Fish Bone Diagrams: 04/26/21 04:52 04/26/21 04:52 - Additional Planning My Orders: My Active Orders 04/26/21 08:24 Saccharomyces Boulardii [Florastor] 250 mg PO BIDWM 04/27/21 09:00 [email or web address] CD [Cardizem Cd] 120 mg PO DAILY Subjective - Subjective Patient Reports: Feeling Better, Resting Comfortably Objective Vital Signs: Vital Signs - 24 hr 04/25/21 04/25/21 04/25/21 10:49 12:55 12:57 Temperature 36.4 C L 36.5 C Heart Rate [ 64 Brachial] Heart Rate [ 67 Monitoring electrodes] Respiratory 20 20 Rate Blood Pressure 147/58 H Blood Pressure 111/91 H 147/58 H [Left Brachial artery] Blood Pressure [Right Brachial artery] O2 Saturation 93 94 04/25/21 04/25/21 04/25/21 13:03 13:07 16:00 Temperature 37.0 C Heart Rate [ 61 Brachial] Heart Rate [ Monitoring electrodes] Respiratory 20 Rate Blood Pressure Blood Pressure 134/48 H [Left Brachial artery] Blood Pressure [Right Brachial artery] O2 Saturation 85 L 94 94 04/25/21 04/25/21 04/26/21 19:02 21:00 00:52 Temperature 36.5 C Heart Rate [ 55 L Brachial] Heart Rate [ Monitoring electrodes] Respiratory 20 Rate Blood Pressure 142/72 H 151/66 H Blood Pressure 149/72 H [Left Brachial artery] Blood Pressure [Right Brachial artery] O2 Saturation 98 04/26/21 04/26/21 04/26/21 01:00 02:39 02:40 Temperature 36.6 C Heart Rate [ 66 Brachial] Heart Rate [ Monitoring electrodes] Respiratory 20 22 Rate Blood Pressure Blood Pressure 151/56 H [Left Brachial artery] Blood Pressure [Right Brachial artery] O2 Saturation 93 75 L 83 L 04/26/21 04/26/21 04/26/21 02:48 03:50 05:45 Temperature 36.7 C Heart Rate [ 56 L 61 Brachial] Heart Rate [ Monitoring electrodes] Respiratory 20 20 Rate Blood Pressure Blood Pressure [Left Brachial artery] Blood Pressure 152/63 H [Right Brachial artery] O2 Saturation 92 96 90 L 04/26/21 04/26/21 04/26/21 06:57 06:58 08:18 Temperature 36.7 C Heart Rate [ Brachial] Heart Rate [ 60 Monitoring electrodes] Respiratory 20 20 Rate Blood Pressure 145/71 H Blood Pressure 107/56 L [Left Brachial artery] Blood Pressure [Right Brachial artery] O2 Saturation 97 88 L 04/26/21 04/26/21 04/26/21 08:19 08:24 08:30 Temperature Heart Rate [ Brachial] Heart Rate [ Monitoring electrodes] Respiratory Rate Blood Pressure Blood Pressure [Left Brachial artery] Blood Pressure [Right Brachial artery] O2 Saturation 90 L 93 85 L 04/26/21 04/26/21 04/26/21 08:31 10:15 10:16 Temperature Heart Rate [ Brachial] Heart Rate [ Monitoring electrodes] Respiratory Rate Blood Pressure Blood Pressure [Left Brachial artery] Blood Pressure [Right Brachial artery] O2 Saturation 87 L 99 98 Oxygen O2 Source Oxymizer Oxygen Flow Rate 4 I&O (Last 24 Hrs): Intake and Output Totals x24h 04/24/21 04/25/21 04/26/21 23:59 23:59 23:59 Intake Total 1540 1170 150 Output Total 325 800 975 Balance 1215 370 -825 General: Alert, Oriented x3, Cooperative, No acute distress HEENT: Atraumatic Neck: Supple Lymphatic: no adenopathy Neuro: Alert, Non Focal, Oriented Times 3 Cardiovascular: Regular rate, Normal S1, Normal S2 Respiratory: Chest non-tender, No respiratory distress Abdomen: Normal bowel sounds, Soft Extremities: Normal pulses - Results Results: Laboratory Results WBC 10.9 x10^3/uL (4.8-10.8) H 04/26/21 04:52 RBC 4.36 10^6/uL (4.20-5.40) 04/26/21 04:52 Hgb 13.4 g/dL (12.0-16.0) 04/26/21 04:52 Hct 41.0 % (37.0-47.0) 04/26/21 04:52 MCV 94.0 fL (81.0-99.0) 04/26/21 04:52 MCH 30.7 pg (27.0-31.0) 04/26/21 04:52 MCHC 32.7 g/dL (32.0-36.0) 04/26/21 04:52 RDW 14.8 % (12.0-15.0) 04/26/21 04:52 Plt Count 293 10^3/uL (130-450) 04/26/21 04:52 MPV 10.3 fL (7.9-10.8) 04/26/21 04:52 Neut # (Auto) Not Reportable 04/26/21 04:52 Lymph # (Auto) Not Reportable 04/26/21 04:52 [place] # (Auto) Not Reportable 04/26/21 04:52 Eos # (Auto) Not Reportable 04/26/21 04:52 Baso # (Auto) Not Reportable 04/26/21 04:52 Absolute Nucleated RBC Not Reportable 04/26/21 04:52 Total Counted 100 04/26/21 04:52 Band Neuts % (Manual) 0 % (0-10) 04/26/21 04:52 Abnorm Lymph % (Manual) 0 % 04/26/21 04:52 Nucleated RBC % Not Reportable 04/26/21 04:52 Neutrophils # (Manual) 8.7 10^3/uL (1.5-6.6) H 04/26/21 04:52 Lymphocytes # (Manual) 1.3 10^3/uL (1.5-3.5) L 04/26/21 04:52 Monocytes # (Manual) 0.9 10^3/uL (0.0-1.0) 04/26/21 04:52 Eosinophils # (Manual) 0.0 10^3/uL (0-0.7) 04/26/21 04:52 Basophils # (Manual) 0.0 10^3/uL (0-0.1) 04/26/21 04:52 Differential Comment MANUAL DIFFERENTIAL 04/26/21 04:52 WBC Morphology NORMAL APPEARANCE (NORMAL) 04/26/21 04:52 Platelet Estimate NORMAL (130-450,000) (NORMAL) 04/26/21 04:52 Platelet Morphology NORMAL APPEARANCE (NORMAL) 04/26/21 04:52 RBC Morph Micro Appear NORMAL APPEARANCE (NORMAL) 04/26/21 04:52 D-Dimer 470.8 ng/mL (200.0-255.0) H 04/24/21 14:06 Sodium 142 mmol/L (135-145) 04/26/21 04:52 Potassium 4.0 mmol/L (3.5-5.0) 04/26/21 04:52 Chloride 106 mmol/L (101-111) 04/26/21 04:52 Carbon Dioxide 23 mmol/L (21-32) 04/26/21 04:52 Anion Gap 13.0 (6-13) 04/26/21 04:52 BUN 18 mg/dL (6-20) 04/26/21 04:52 Creatinine 0.6 mg/dL (0.4-1.0) 04/26/21 04:52 Estimated GFR (MDRD) 98 (>89) 04/26/21 04:52 Glucose 128 mg/dL (70-100) H 04/26/21 04:52 Calcium 8.6 mg/dL (8.5-10.3) 04/26/21 04:52 Magnesium 2.3 mg/dL (1.7-2.8) 04/25/21 05:05 Total Bilirubin 0.5 mg/dL (0.2-1.0) 04/24/21 11:10 AST 53 IU/L (10-42) H 04/24/21 11:10 ALT 29 IU/L (10-60) 04/24/21 11:10 Alkaline Phosphatase 66 IU/L (42-121) 04/24/21 11:10 B-Natriuretic Peptide 90 pg/mL (5-100) 04/24/21 11:10 Total Protein 6.8 g/dL (6.7-8.2) 04/24/21 11:10 Albumin 3.2 g/dL (3.2-5.5) 04/24/21 11:10 Globulin 3.6 g/dL (2.1-4.2) 04/24/21 11:10 Albumin/Globulin Ratio 0.9 (1.0-2.2) L 04/24/21 11:10 Lipase 56 U/L (22-51) H 04/24/21 11:10 25-OH Vitamin D Total 40 ng/mL (30-100) 04/24/21 11:10 Nasal Adenovirus (PCR) NOT DETECTED 04/24/21 11:10 Nasal B. parapertussis DNA (PCR) NOT DETECTED 04/24/21 11:10 Nasal Coronavir 229E PCR NOT DETECTED 04/24/21 11:10 Nasal Coronavir HKU1 PCR NOT DETECTED 04/24/21 11:10 Nasal Coronavir NL63 PCR NOT DETECTED 04/24/21 11:10 Nasal Coronavir OC43 PCR NOT DETECTED 04/24/21 11:10 Nasal Enterovir/Rhinovir PCR NOT DETECTED 04/24/21 11:10 Nasal Influenza B PCR NOT DETECTED 04/24/21 11:10 Nasal Influenza A PCR NOT DETECTED 04/24/21 11:10 Nasal Parainfluen 1 PCR NOT DETECTED 04/24/21 11:10 Nasal Parainfluen 2 PCR NOT DETECTED 04/24/21 11:10 Nasal Parainfluen 3 PCR NOT DETECTED 04/24/21 11:10 Nasal Parainfluen 4 PCR NOT DETECTED 04/24/21 11:10 Nasal RSV (PCR) NOT DETECTED 04/24/21 11:10 Nasal B.pertussis DNA PCR NOT DETECTED 04/24/21 11:10 Nasal C.pneumoniae (PCR) NOT DETECTED 04/24/21 11:10 Anthony Human Metapneumo PCR NOT DETECTED 04/24/21 11:10 Nasal M.pneumoniae (PCR) NOT DETECTED 04/24/21 11:10 Nasal SARS-CoV-2 (PCR) DETECTED A 04/24/21 11:10 - Procedures Procedures: Procedures EXCISION OF ASCENDING COLON, ENDO, DIAGN (05/22/16) ABX Reporting Has patient been on IV antibiotics over the past 48 hours?: Yes Current Medications - Current Medications Current Medications: Active Medications Acetaminophen (Acetaminophen 325 Mg Tablet) 650 mg PO Q4HR PRN PRN Reason: Pain 1 to 4 Last Admin: 04/25/21 16:18 Dose: 650 mg Albuterol (Albuterol 1 Puff) 2 puffs INH Q4H PRN PRN Reason: Dyspnea Last Admin: 04/24/21 17:39 Dose: 2 puffs Atorvastatin Calcium (Atorvastatin 40 Mg Tablet) 40 mg PO QPM [facility] Last Admin: 04/25/21 21:09 Dose: 40 mg Clopidogrel Bisulfate (Clopidogrel 75 Mg Tablet) 75 mg PO DAILY [facility] Last Admin: 04/26/21 08:39 Dose: 75 mg Dexamethasone (Dexamethasone 4 Mg/Ml Vial) 6 mg IVP DAILY [facility] Stop: 05/03/21 14:29 Last Admin: 04/26/21 08:38 Dose: 6 mg Diltiazem HCl (Diltiazem Cd 120 Mg Capsule) 120 mg PO DAILY [facility] Enoxaparin Sodium (Enoxaparin 40 Mg/0.4 Ml Syringe) 40 mg SUBQ DAILY [facility] Last Admin: 04/26/21 08:39 Dose: 40 mg Folic Acid (Folic Acid 1 Mg Tablet) 1 mg PO DAILY [facility] Last Admin: 04/26/21 08:39 Dose: 1 mg Ceftriaxone Sodium 1 gm/ (Sodium Chloride) 100 mls @ 200 mls/hr IV DAILY [facility] Last Infusion: 04/26/21 09:30 Dose: Infused Ondansetron HCl (Ondansetron 4 Mg/2 Ml Vial) 4 mg IVP Q6HR PRN PRN Reason: Nausea / Vomiting Oxycodone HCl (Oxycodone 5 Mg Tablet) 5 mg PO Q4HR PRN PRN Reason: Pain 5 to 7 Pantoprazole Sodium (Pantoprazole 40 Mg Tablet) 40 mg PO QDAC [facility] Last Admin: 04/26/21 06:58 Dose: 40 mg Polyethylene Glycol (Polyethylene Glycol 3350 17 Gm Packet) 17 gm PO DAILY [facility] Last Admin: 04/26/21 08:46 Dose: Not Given Saccharomyces Boulardii (Saccharomyces Boulardii 250 Mg Capsule) 250 mg PO BIDWM [facility] Last Admin: 04/26/21 08:46 Dose: 250 mg Sodium Chloride (Sodium Chloride Flush 0.9% 10 Ml Syringe) 10 ml IVP PRN PRN PRN Reason: NEEDED PER PROVIDER ORDERS Last Admin: 04/24/21 14:12 Dose: 10 ml Sodium Chloride (Sodium Chloride Flush 0.9% 10 Ml Syringe) 10 ml IVP 0100,0900,1700 [facility] Last Admin: 04/26/21 08:38 Dose: 10 ml Clopidogrel Bisulfate [Plavix] 75 mg PO DAILY 05/22/16 Methotrexate [Methotrexate Sodium] 20 mg PO TH 05/22/16 Rosuvastatin Calcium [Crestor] 5 mg PO DAILY 05/22/16 Folic Acid 1 mg PO DAILY 02/06/17 Pantoprazole [Protonix] 40 mg PO DAILY 04/24/21
[2021-04-26] MEDS: ACETAMINOPHEN 325 MG TABLET PO PRN (19:59)
[2021-04-26] MEDS: ATORVASTATIN 40 MG TABLET PO SCH (20:00)
[2021-04-26] MEDS: ATORVASTATIN 10 MG TABLET PO SCH (20:00)
[2021-04-27] MEDS: SODIUM CHLORIDE FLUSH 0.9% 10 ML SYRINGE IVP SCH ×3 (01:04→17:18)
[2021-04-27] MEDS: PANTOPRAZOLE 40 MG TABLET PO SCH (05:08)
[2021-04-27 05:56] LABS: BASOPHILS % (AUTO) 0.1 %; HCT - HEMATOCRIT 40.6 % (37.0-47.0); HGB - HEMOGLOBIN 13.5 g/dL (12.0-16.0); LYMPHOCYTES % (AUTO) 7.6 %; MEAN CORPUSCULAR HEMOGLOBIN 31.4 pg (27.0-31.0); MEAN CORPUSCULAR HGB CONC 33.3 g/dL (32.0-36.0); MEAN CORPUSCULAR VOLUME 94.4 fL (81.0-99.0); MONOCYTES % (AUTO) 10.7 %; PLT - PLATELET COUNT 328 10^3/uL (130-450); RED CELL DISTRIBUTION WIDTH 14.8 % (12.0-15.0)
[2021-04-27 05:57] LABS: ABNORMAL LYMPHS % (MANUAL) 0 %
[2021-04-27 06:00] LABS: CALCIUM 8.7 mg/dL (8.5-10.3); CREATININE 0.6 mg/dL (0.4-1.0); POTASSIUM 3.7 mmol/L (3.5-5.0)
[2021-04-27 06:13] LABS: BAND NEUTROPHILS % (MANUAL) 5 %; LYMPHOCYTES # (MANUAL) 1.2 10^3/uL (1.5-3.5); LYMPHOCYTES % (MANUAL) 11 %; MONOCYTES # (MANUAL) 0.8 10^3/uL (0.0-1.0); RBC MORPHOLOGY (MULTIPLE) NORMAL APPEARANCE (NORMAL)
[2021-04-27 06:14] LABS: DIFFERENTIAL COMMENT MANUAL DIFFERENTIAL; PLATELET ESTIMATE, MANUAL NORMAL (130-450,000) (NORMAL)
[2021-04-27] MEDS: DEXAMETHASONE 4 MG/ML VIAL IVP SCH (08:17)
[2021-04-27] MEDS: cefTRIAXone 1 GM in SODIUM CHLORIDE 0.9% MINIBAG 100 ML IV SCH (08:19)
[2021-04-27] MEDS: CLOPIDOGREL 75 MG TABLET PO SCH (08:23)
[2021-04-27] MEDS: SACCHAROMYCES BOULARDII 250 MG CAPSULE PO SCH ×2 (08:23→17:18)
[2021-04-27] MEDS: polyethylene glycoL 3350 17 GM PACKET PO SCH (08:25)
[2021-04-27] MEDS: diltiaZEM CD 120 MG CAPSULE PO SCH (08:25)
[2021-04-27] MEDS: ENOXAPARIN 40 MG/0.4 ML SYRINGE SUBQ SCH (08:25)
[2021-04-27] MEDS: FOLIC ACID 1 MG TABLET PO SCH (08:25)
[2021-04-27] MEDS ORDERED: CHOLECALCIFEROL 25 MCG TABLET PO SCH (09:00)
--- NOTE | 2021-04-27 10:16 | PROVIDER PROGRESS NOTE ---
Assessment/Plan - Problem List (1) Acute respiratory failure with hypoxia Assessment/Plan: 04/27 stable without acute respiratory distress in the rest, but pt still need 10 liter of O2 and remain 96% O2 sat, and pt still present significant shortness of breath on exertion. continue Rocephin and azithromycin initiated on 04/24/2021, Lovenox 40 mg subcut daily for DVT prophylaxis, decatron, add probiotics. Patient initially tested positive for COVID-19 on 04/08/2021. Remdesivir not given because it has been about 17 days since diagnosis. 04/26 improved. pt had 98% on 10 liter of O2 and pt is comfortable without acute respiratory Distress on resting now, but pt's O2 saturation drop quickly and she felt significantly short of breathing on exertion. Chest x-ray done on 04/24/2021 showed peripheral interstitial pattern which may reflect chronic interstitial changes versus interstitial infiltrates. Patient initially tested positive for COVID-19 on 04/08/2021. Remdesivir not given because it has been about 17 days since diagnosis. continue Rocephin and azithromycin initiated on 04/24/2021, Lovenox 40 mg subcut daily for DVT prophylaxis, decatron, add probiotics. (2) COVID-19 Assessment/Plan: Patient initially tested positive for COVID-19 on 04/08/2021. Remdesivir not given because it has been about 17 days since diagnosis. continue Rocephin and azithromycin initiated on 04/24/2021, Lovenox 40 mg subcut daily for DVT prophylaxis, decatron, add probiotics. (3) New onset atrial fibrillation Assessment/Plan: 04/27 HR is controlled, Tele show SR now. continue daily Cardizzem CD, continue home Plavix, lovenox for DVT prophylaxis. pt's HR is controlled. Tele show SR now. switch to PO Cardizem CD, continue home Plavix (4) Hyperlipidemia Assessment/Plan: Patient takes rosuvastatin at home. Atorvastatin 40 mg p.o. every afternoon ordered. (5) Hypertension Currently normotensive. On Cardizem CD 120mg daily, Continue vital signs monitor (6) Hypokalemia Assessment/Plan: Resolved. Potassium level is 4.4 and magnesium 2.3 (7) Rheumatoid arthritis Assessment/Plan: Patient takes methotrexate 2.5 mg IM every . We will hold methotrexate for now while also treating a potential bacterial infection (8) GERD (gastroesophageal reflux disease) Assessment/Plan: Protonix 40 mg p.o. daily. - Current Meds Current Meds: Current Medications Generic Name Dose Route Start Last Admin Trade Name Freq PRN Reason Stop Dose Admin Acetaminophen 650 mg 04/24/21 12:40 04/26/21 19:59 Acetaminophen 325 Mg Tablet PO 650 mg Q4HR PRN Administration Pain 1 to 4 Albuterol 2 puffs 04/24/21 12:49 04/24/21 17:39 Albuterol 1 Puff INH 2 puffs Q4H PRN Administration Dyspnea Atorvastatin Calcium 10 mg 04/26/21 21:00 04/26/21 20:00 Atorvastatin 10 Mg Tablet PO 10 mg QPM [facility] Administration Clopidogrel Bisulfate 75 mg 04/25/21 09:00 04/27/21 08:23 Clopidogrel 75 Mg Tablet PO 75 mg DAILY [facility] Administration Dexamethasone 6 mg 04/24/21 14:30 04/27/21 08:17 Dexamethasone 4 Mg/Ml Vial IVP 05/03/21 14:29 6 mg DAILY [facility] Administration Diltiazem HCl 120 mg 04/27/21 09:00 04/27/21 08:25 Diltiazem Cd 120 Mg Capsule PO 120 mg DAILY [facility] Administration Enoxaparin Sodium 40 mg 04/24/21 14:30 04/27/21 08:25 Enoxaparin 40 Mg/0.4 Ml Syringe SUBQ 40 mg DAILY [facility] Administration Folic Acid 1 mg 04/25/21 09:00 04/27/21 08:25 Folic Acid 1 Mg Tablet PO 1 mg DAILY [facility] Administration Ceftriaxone Sodium 1 gm/ 100 mls @ 200 mls/hr 04/25/21 09:00 04/27/21 08:19 Sodium Chloride IV 200 mls/hr DAILY [facility] Administration Pantoprazole Sodium 40 mg 04/25/21 07:00 04/27/21 05:08 Pantoprazole 40 Mg Tablet PO 40 mg QDAC [facility] Administration Polyethylene Glycol 17 gm 04/25/21 19:05 04/27/21 08:25 Polyethylene Glycol 3350 17 Gm Packet PO 17 gm DAILY [facility] Administration Saccharomyces Boulardii 250 mg 04/26/21 08:24 04/27/21 08:23 Saccharomyces Boulardii 250 Mg Capsule PO 250 mg BIDWM [facility] Administration Sodium Chloride 10 ml 04/24/21 12:40 04/24/21 14:12 Sodium Chloride Flush 0.9% 10 Ml Syringe IVP 10 ml PRN PRN Administration NEEDED PER PROVIDER ORDERS Sodium Chloride 10 ml 04/24/21 17:00 04/27/21 08:26 Sodium Chloride Flush 0.9% 10 Ml Syringe IVP 10 ml 0100,0900,1700 [facility] Administration - Lab Result Fish Bone Diagrams: 04/27/21 05:42 04/27/21 05:42 - Additional Planning My Orders: My Active Orders 04/26/21 21:00 Atorvastatin [Lipitor] 10 mg PO QPM 04/27/21 09:00 [email or web address] CD [Cardizem Cd] 120 mg PO DAILY Subjective - Subjective Patient Reports: Resting Comfortably Objective Vital Signs: Vital Signs - 24 hr 04/26/21 04/26/21 04/26/21 10:15 10:16 12:14 Temperature 36.4 C L Heart Rate [ 62 Brachial] Respiratory 20 Rate Blood Pressure [Left Brachial artery] Blood Pressure 130/59 L [Right Brachial artery] O2 Saturation 99 98 92 04/26/21 04/26/21 04/26/21 16:53 20:08 21:52 Temperature 36.6 C 36.8 C Heart Rate [ 70 70 Brachial] Respiratory 22 20 Rate Blood Pressure [Left Brachial artery] Blood Pressure 152/63 H 160/64 H [Right Brachial artery] O2 Saturation 92 04/27/21 04/27/21 04/27/21 00:50 01:30 02:30 Temperature 37 C Heart Rate [ 71 63 Brachial] Respiratory 21 24 22 Rate Blood Pressure 167/65 H [Left Brachial artery] Blood Pressure 153/67 H [Right Brachial artery] O2 Saturation 92 95 93 04/27/21 04/27/21 04/27/21 03:17 05:00 05:13 Temperature 36.6 C Heart Rate [ 70 Brachial] Respiratory 22 Rate Blood Pressure 153/67 H [Left Brachial artery] Blood Pressure [Right Brachial artery] O2 Saturation 97 92 04/27/21 04/27/21 04/27/21 05:24 08:26 10:06 Temperature 36.8 C Heart Rate [ 67 Brachial] Respiratory 19 20 Rate Blood Pressure 164/78 H [Left Brachial artery] Blood Pressure [Right Brachial artery] O2 Saturation 94 96 96 Oxygen O2 Source Oxymizer Oxygen Flow Rate 4 I&O (Last 24 Hrs): Intake and Output Totals x24h 04/25/21 04/26/21 04/27/21 23:59 23:59 23:59 Intake Total 1170 990 200 Output Total 800 1975 300 Balance 370 -985 -100 General: Alert, Oriented x3, Cooperative, No acute distress HEENT: Atraumatic Neck: Supple Lymphatic: no adenopathy Neuro: Alert, Non Focal, Oriented Times 3 Cardiovascular: Regular rate, Normal S1, Normal S2 Respiratory: Chest non-tender, No respiratory distress Abdomen: Normal bowel sounds, Soft Extremities: Normal pulses - Results Results: Laboratory Results WBC 11.0 x10^3/uL (4.8-10.8) H 04/27/21 05:42 RBC 4.30 10^6/uL (4.20-5.40) 04/27/21 05:42 Hgb 13.5 g/dL (12.0-16.0) 04/27/21 05:42 Hct 40.6 % (37.0-47.0) 04/27/21 05:42 MCV 94.4 fL (81.0-99.0) 04/27/21 05:42 MCH 31.4 pg (27.0-31.0) H 04/27/21 05:42 MCHC 33.3 g/dL (32.0-36.0) 04/27/21 05:42 RDW 14.8 % (12.0-15.0) 04/27/21 05:42 Plt Count 328 10^3/uL (130-450) 04/27/21 05:42 MPV 10.0 fL (7.9-10.8) 04/27/21 05:42 Neut # (Auto) Not Reportable 04/27/21 05:42 Lymph # (Auto) Not Reportable 04/27/21 05:42 Johnston # (Auto) Not Reportable 04/27/21 05:42 Eos # (Auto) Not Reportable 04/27/21 05:42 Baso # (Auto) Not Reportable 04/27/21 05:42 Absolute Nucleated RBC Not Reportable 04/27/21 05:42 Total Counted 100 04/27/21 05:42 Band Neuts % (Manual) 5 % (0-10) 04/27/21 05:42 Abnorm Lymph % (Manual) 0 % 04/27/21 05:42 Nucleated RBC % Not Reportable 04/27/21 05:42 Neutrophils # (Manual) 9.0 10^3/uL (1.5-6.6) H 04/27/21 05:42 Lymphocytes # (Manual) 1.2 10^3/uL (1.5-3.5) L 04/27/21 05:42 Monocytes # (Manual) 0.8 10^3/uL (0.0-1.0) 04/27/21 05:42 Eosinophils # (Manual) 0.0 10^3/uL (0-0.7) 04/27/21 05:42 Basophils # (Manual) 0.0 10^3/uL (0-0.1) 04/27/21 05:42 Differential Comment MANUAL DIFFERENTIAL 04/27/21 05:42 WBC Morphology NORMAL APPEARANCE (NORMAL) 04/26/21 04:52 Platelet Estimate NORMAL (130-450,000) (NORMAL) 04/27/21 05:42 Platelet Morphology NORMAL APPEARANCE (NORMAL) 04/26/21 04:52 RBC Morph Micro Appear NORMAL APPEARANCE (NORMAL) 04/27/21 05:42 D-Dimer 470.8 ng/mL (200.0-255.0) H 04/24/21 14:06 Sodium 141 mmol/L (135-145) 04/27/21 05:42 Potassium 3.7 mmol/L (3.5-5.0) 04/27/21 05:42 Chloride 108 mmol/L (101-111) 04/27/21 05:42 Carbon Dioxide 22 mmol/L (21-32) 04/27/21 05:42 Anion Gap 11.0 (6-13) 04/27/21 05:42 BUN 20 mg/dL (6-20) 04/27/21 05:42 Creatinine 0.6 mg/dL (0.4-1.0) 04/27/21 05:42 Estimated GFR (MDRD) 98 (>89) 04/27/21 05:42 Glucose 118 mg/dL (70-100) H 04/27/21 05:42 Calcium 8.7 mg/dL (8.5-10.3) 04/27/21 05:42 Magnesium 2.3 mg/dL (1.7-2.8) 04/25/21 05:05 Total Bilirubin 0.5 mg/dL (0.2-1.0) 04/24/21 11:10 AST 53 IU/L (10-42) H 04/24/21 11:10 ALT 29 IU/L (10-60) 04/24/21 11:10 Alkaline Phosphatase 66 IU/L (42-121) 04/24/21 11:10 B-Natriuretic Peptide 90 pg/mL (5-100) 04/24/21 11:10 Total Protein 6.8 g/dL (6.7-8.2) 04/24/21 11:10 Albumin 3.2 g/dL (3.2-5.5) 04/24/21 11:10 Globulin 3.6 g/dL (2.1-4.2) 04/24/21 11:10 Albumin/Globulin Ratio 0.9 (1.0-2.2) L 04/24/21 11:10 Lipase 56 U/L (22-51) H 04/24/21 11:10 25-OH Vitamin D Total 40 ng/mL (30-100) 04/24/21 11:10 Nasal Adenovirus (PCR) NOT DETECTED 04/24/21 11:10 Nasal B. parapertussis DNA (PCR) NOT DETECTED 04/24/21 11:10 Nasal Coronavir 229E PCR NOT DETECTED 04/24/21 11:10 Nasal Coronavir HKU1 PCR NOT DETECTED 04/24/21 11:10 Nasal Coronavir NL63 PCR NOT DETECTED 04/24/21 11:10 Nasal Coronavir OC43 PCR NOT DETECTED 04/24/21 11:10 Nasal Enterovir/Rhinovir PCR NOT DETECTED 04/24/21 11:10 Nasal Influenza B PCR NOT DETECTED 04/24/21 11:10 Nasal Influenza A PCR NOT DETECTED 04/24/21 11:10 Nasal Parainfluen 1 PCR NOT DETECTED 04/24/21 11:10 Nasal Parainfluen 2 PCR NOT DETECTED 04/24/21 11:10 Nasal Parainfluen 3 PCR NOT DETECTED 04/24/21 11:10 Nasal Parainfluen 4 PCR NOT DETECTED 04/24/21 11:10 Nasal RSV (PCR) NOT DETECTED 04/24/21 11:10 Nasal B.pertussis DNA PCR NOT DETECTED 04/24/21 11:10 Nasal C.pneumoniae (PCR) NOT DETECTED 04/24/21 11:10 Anthony Human Metapneumo PCR NOT DETECTED 04/24/21 11:10 Nasal M.pneumoniae (PCR) NOT DETECTED 04/24/21 11:10 Nasal SARS-CoV-2 (PCR) DETECTED A 04/24/21 11:10 - Procedures Procedures: Procedures EXCISION OF ASCENDING COLON, ENDO, DIAGN (05/22/16) ABX Reporting Has patient been on IV antibiotics over the past 48 hours?: Yes Current Medications - Current Medications Current Medications: Active Medications Acetaminophen (Acetaminophen 325 Mg Tablet) 650 mg PO Q4HR PRN PRN Reason: Pain 1 to 4 Last Admin: 04/26/21 19:59 Dose: 650 mg Albuterol (Albuterol 1 Puff) 2 puffs INH Q4H PRN PRN Reason: Dyspnea Last Admin: 04/24/21 17:39 Dose: 2 puffs Atorvastatin Calcium (Atorvastatin 10 Mg Tablet) 10 mg PO QPM [facility] Last Admin: 04/26/21 20:00 Dose: 10 mg Clopidogrel Bisulfate (Clopidogrel 75 Mg Tablet) 75 mg PO DAILY [facility] Last Admin: 04/27/21 08:23 Dose: 75 mg Dexamethasone (Dexamethasone 4 Mg/Ml Vial) 6 mg IVP DAILY [facility] Stop: 05/03/21 14:29 Last Admin: 04/27/21 08:17 Dose: 6 mg Diltiazem HCl (Diltiazem Cd 120 Mg Capsule) 120 mg PO DAILY [facility] Last Admin: 04/27/21 08:25 Dose: 120 mg Enoxaparin Sodium (Enoxaparin 40 Mg/0.4 Ml Syringe) 40 mg SUBQ DAILY [facility] Last Admin: 04/27/21 08:25 Dose: 40 mg Folic Acid (Folic Acid 1 Mg Tablet) 1 mg PO DAILY [facility] Last Admin: 04/27/21 08:25 Dose: 1 mg Ceftriaxone Sodium 1 gm/ (Sodium Chloride) 100 mls @ 200 mls/hr IV DAILY [facility] Last Admin: 04/27/21 08:19 Dose: 200 mls/hr Ondansetron HCl (Ondansetron 4 Mg/2 Ml Vial) 4 mg IVP Q6HR PRN PRN Reason: Nausea / Vomiting Oxycodone HCl (Oxycodone 5 Mg Tablet) 5 mg PO Q4HR PRN PRN Reason: Pain 5 to 7 Pantoprazole Sodium (Pantoprazole 40 Mg Tablet) 40 mg PO QDAC [facility] Last Admin: 04/27/21 05:08 Dose: 40 mg Polyethylene Glycol (Polyethylene Glycol 3350 17 Gm Packet) 17 gm PO DAILY [facility] Last Admin: 04/27/21 08:25 Dose: 17 gm Saccharomyces Boulardii (Saccharomyces Boulardii 250 Mg Capsule) 250 mg PO BIDWM [facility] Last Admin: 04/27/21 08:23 Dose: 250 mg Sodium Chloride (Sodium Chloride Flush 0.9% 10 Ml Syringe) 10 ml IVP PRN PRN PRN Reason: NEEDED PER PROVIDER ORDERS Last Admin: 04/24/21 14:12 Dose: 10 ml Sodium Chloride (Sodium Chloride Flush 0.9% 10 Ml Syringe) 10 ml IVP 0100,0900,1700 [facility] Last Admin: 04/27/21 08:26 Dose: 10 ml Clopidogrel Bisulfate [Plavix] 75 mg PO DAILY 05/22/16 Methotrexate [Methotrexate Sodium] 20 mg PO TH 05/22/16 Rosuvastatin Calcium [Crestor] 5 mg PO DAILY 05/22/16 Folic Acid 1 mg PO DAILY 02/06/17 Pantoprazole [Protonix] 40 mg PO DAILY 04/24/21
[2021-04-27] MEDS: ACETAMINOPHEN 325 MG TABLET PO PRN (17:18)
[2021-04-27] MEDS: ATORVASTATIN 10 MG TABLET PO SCH (21:17)
[2021-04-28] MEDS: SODIUM CHLORIDE FLUSH 0.9% 10 ML SYRINGE IVP SCH ×3 (00:29→16:30)
[2021-04-28 05:48] LABS: BASOPHILS % (AUTO) 0.1 %; HCT - HEMATOCRIT 42.8 % (37.0-47.0); HGB - HEMOGLOBIN 14.3 g/dL (12.0-16.0); LYMPHOCYTES % (AUTO) 9.1 %; MEAN CORPUSCULAR HEMOGLOBIN 30.8 pg (27.0-31.0); MEAN CORPUSCULAR HGB CONC 33.4 g/dL (32.0-36.0); MEAN CORPUSCULAR VOLUME 92.2 fL (81.0-99.0); MEAN PLATELET VOLUME 10.2 fL (7.9-10.8); MONOCYTES % (AUTO) 11.4 %; NEUTROPHILS % (AUTO) 78.7 %; PLT - PLATELET COUNT 358 10^3/uL (130-450); RED BLOOD COUNT 4.64 10^6/uL (4.20-5.40); RED CELL DISTRIBUTION WIDTH 14.8 % (12.0-15.0); WHITE BLOOD COUNT 12.6 x10^3/uL (4.8-10.8)
[2021-04-28 05:55] LABS: ABNORMAL LYMPHS % (MANUAL) 0 %; BAND NEUTROPHILS % (MANUAL) 0 %
[2021-04-28 05:58] LABS: CALCIUM 8.6 mg/dL (8.5-10.3); CREATININE 0.6 mg/dL (0.4-1.0); POTASSIUM 3.6 mmol/L (3.5-5.0)
[2021-04-28 06:11] LABS: LYMPHOCYTES # (MANUAL) 2.4 10^3/uL (1.5-3.5); LYMPHOCYTES % (MANUAL) 19 %; MONOCYTES # (MANUAL) 1.6 10^3/uL (0.0-1.0); NEUTROPHILS # (MANUAL) 8.6 10^3/uL (1.5-6.6); RBC MORPHOLOGY (MULTIPLE) NORMAL APPEARANCE (NORMAL)
[2021-04-28 06:12] LABS: DIFFERENTIAL COMMENT MANUAL DIFFERENTIAL; PLATELET ESTIMATE, MANUAL NORMAL (130-450,000) (NORMAL)
[2021-04-28] MEDS: PANTOPRAZOLE 40 MG TABLET PO SCH (06:45)
[2021-04-28] MEDS: cefTRIAXone 1 GM in SODIUM CHLORIDE 0.9% MINIBAG 100 ML IV SCH (09:15)
[2021-04-28] MEDS: polyethylene glycoL 3350 17 GM PACKET PO SCH (09:17)
[2021-04-28] MEDS: CLOPIDOGREL 75 MG TABLET PO SCH (09:18)
[2021-04-28] MEDS: dexAMETHasone 4 MG TABLET PO SCH (09:18)
[2021-04-28] MEDS: diltiaZEM CD 120 MG CAPSULE PO SCH (09:18)
[2021-04-28] MEDS: ENOXAPARIN 40 MG/0.4 ML SYRINGE SUBQ SCH (09:18)
[2021-04-28] MEDS: FOLIC ACID 1 MG TABLET PO SCH (09:18)
--- NOTE | 2021-04-28 10:36 | PROVIDER PROGRESS NOTE ---
Assessment/Plan - Problem List (1) Acute respiratory failure with hypoxia Assessment/Plan: 04/28 pt required high flow of O2 on today. pt still present no acute Respiratory distress on rest, still present shortness of breath at exertion. pt was unvaccinated for Covid 19. pt finished antibiotic treatment course on today, Continue finish COVID-19 treatment, continue supplemental oxygen as needed 04/27 stable without acute respiratory distress in the rest, but pt still need 10 liter of O2 and remain 96% O2 sat, and pt still present significant shortness of breath on exertion. continue Rocephin and azithromycin initiated on 04/24/2021, Lovenox 40 mg subcut daily for DVT prophylaxis, decatron, add probiotics. Patient initially tested positive for COVID-19 on 04/08/2021. Remdesivir not given because it has been about 17 days since diagnosis. 04/26 improved. pt had 98% on 10 liter of O2 and pt is comfortable without acute respiratory Distress on resting now, but pt's O2 saturation drop quickly and she felt significantly short of breathing on exertion. Chest x-ray done on 04/24/2021 showed peripheral interstitial pattern which may reflect chronic interstitial changes versus interstitial infiltrates. Patient initially tested positive for COVID-19 on 04/08/2021. Remdesivir not given because it has been about 17 days since diagnosis. continue Rocephin and azithromycin initiated on 04/24/2021, Lovenox 40 mg subcut daily for DVT prophylaxis, decatron, add probiotics. (2) COVID-19 Assessment/Plan: Patient initially tested positive for COVID-19 on 04/08/2021. Remdesivir not given because it has been about 17 days since diagnosis. continue Rocephin and azithromycin initiated on 04/24/2021, Lovenox 40 mg subcut daily for DVT prophylaxis, decatron, add probiotics. (3) New onset atrial fibrillation Assessment/Plan: 04/28 HR is controlled with Cardizem CD. pt still present afib, pt has severe Covid 19 infection, chadsvasc score is 3, we will start with eliquis, hold pt's home Plavix. 04/27 HR is controlled, Tele show SR now. continue daily Cardizzem CD, continue home Plavix, lovenox for DVT prophylaxis. pt's HR is controlled. Tele show SR now. switch to PO Cardizem CD, continue home Plavix (4) Hyperlipidemia Assessment/Plan: Patient takes rosuvastatin at home. Atorvastatin 40 mg p.o. every afternoon ordered. (5) Hypertension Currently normotensive. On Cardizem CD 120mg daily, Continue vital signs monitor (6) Hypokalemia Assessment/Plan: Resolved. Potassium level is 4.4 and magnesium 2.3 (7) Rheumatoid arthritis Assessment/Plan: Patient takes methotrexate 2.5 mg IM every . We will hold methotrexate for now while also treating a potential bacterial infection (8) GERD (gastroesophageal reflux disease) Assessment/Plan: Protonix 40 mg p.o. daily. - Current Meds Current Meds: Current Medications Generic Name Dose Route Start Last Admin Trade Name Freq PRN Reason Stop Dose Admin Acetaminophen 650 mg 04/24/21 12:40 04/27/21 17:18 Acetaminophen 325 Mg Tablet PO 650 mg Q4HR PRN Administration Pain 1 to 4 Albuterol 2 puffs 04/24/21 12:49 04/24/21 17:39 Albuterol 1 Puff INH 2 puffs Q4H PRN Administration Dyspnea Atorvastatin Calcium 10 mg 04/26/21 21:00 04/27/21 21:17 Atorvastatin 10 Mg Tablet PO 10 mg QPM [facility] Administration Dexamethasone 6 mg 04/28/21 08:00 04/28/21 09:18 Dexamethasone 4 Mg Tablet PO 05/03/21 08:01 6 mg DAILYWM [facility] Administration Diltiazem HCl 120 mg 04/27/21 09:00 04/28/21 09:18 Diltiazem Cd 120 Mg Capsule PO 120 mg DAILY [facility] Administration Folic Acid 1 mg 04/25/21 09:00 04/28/21 09:18 Folic Acid 1 Mg Tablet PO 1 mg DAILY [facility] Administration Pantoprazole Sodium 40 mg 04/25/21 07:00 04/28/21 06:45 Pantoprazole 40 Mg Tablet PO 40 mg QDAC [facility] Administration Polyethylene Glycol 17 gm 04/25/21 19:05 04/28/21 09:17 Polyethylene Glycol 3350 17 Gm Packet PO 17 gm DAILY [facility] Administration Saccharomyces Boulardii 250 mg 04/26/21 08:24 04/27/21 17:18 Saccharomyces Boulardii 250 Mg Capsule PO 250 mg BIDWM [facility] Administration Sodium Chloride 10 ml 04/24/21 12:40 04/24/21 14:12 Sodium Chloride Flush 0.9% 10 Ml Syringe IVP 10 ml PRN PRN Administration NEEDED PER PROVIDER ORDERS Sodium Chloride 10 ml 04/24/21 17:00 04/28/21 09:17 Sodium Chloride Flush 0.9% 10 Ml Syringe IVP 10 ml 0100,0900,1700 [facility] Administration - Lab Result Fish Bone Diagrams: 04/28/21 05:37 04/28/21 05:37 - Additional Planning My Orders: My Active Orders 04/28/21 10:10 Benzonatate [Tessalon] 100 mg PO TID PRN 04/28/21 11:00 guaiFENesin [Mucinex] 600 mg PO BID 04/28/21 21:00 Apixaban [Eliquis] 5 mg PO BID Subjective - Subjective Patient Reports: Resting Comfortably, Cough Objective Vital Signs: Vital Signs - 24 hr 04/27/21 04/27/21 04/27/21 12:46 16:54 20:04 Temperature 36.4 C L 36.8 C Heart Rate [ 78 91 91 Brachial] Respiratory 20 22 21 Rate Blood Pressure 132/65 H 122/68 [Left Brachial artery] Blood Pressure 150/70 H [Right Brachial artery] O2 Saturation 95 93 97 04/28/21 04/28/21 04/28/21 00:26 01:45 06:41 Temperature 36.6 C 36.6 C Heart Rate [ 80 93 Brachial] Respiratory 21 20 Rate Blood Pressure [Left Brachial artery] Blood Pressure 138/78 H 148/97 H [Right Brachial artery] O2 Saturation 91 L 90 L 90 L 04/28/21 07:44 Temperature 36.7 C Heart Rate [ 82 Brachial] Respiratory 22 Rate Blood Pressure [Left Brachial artery] Blood Pressure 129/67 [Right Brachial artery] O2 Saturation 95 Oxygen O2 Source Oxymizer Oxygen Flow Rate 4 I&O (Last 24 Hrs): Intake and Output Totals x24h 04/26/21 04/27/21 04/28/21 23:59 23:59 23:59 Intake Total 990 1277 420 Output Total 1975 4977 700 Balance -985 -323 -280 General: Alert, Oriented x3, Cooperative, No acute distress HEENT: Atraumatic Neck: Supple Lymphatic: no adenopathy Neuro: Alert, Non Focal, Oriented Times 3 Cardiovascular: Regular rate, Normal S1, Normal S2 Respiratory: Chest non-tender, No respiratory distress Abdomen: Normal bowel sounds, Soft Extremities: Normal pulses - Results Results: Laboratory Results WBC 12.6 x10^3/uL (4.8-10.8) H 04/28/21 05:37 RBC 4.64 10^6/uL (4.20-5.40) 04/28/21 05:37 Hgb 14.3 g/dL (12.0-16.0) 04/28/21 05:37 Hct 42.8 % (37.0-47.0) 04/28/21 05:37 MCV 92.2 fL (81.0-99.0) 04/28/21 05:37 MCH 30.8 pg (27.0-31.0) 04/28/21 05:37 MCHC 33.4 g/dL (32.0-36.0) 04/28/21 05:37 RDW 14.8 % (12.0-15.0) 04/28/21 05:37 Plt Count 358 10^3/uL (130-450) 04/28/21 05:37 MPV 10.2 fL (7.9-10.8) 04/28/21 05:37 Neut # (Auto) Not Reportable 04/28/21 05:37 Lymph # (Auto) Not Reportable 04/28/21 05:37 [place] # (Auto) Not Reportable 04/28/21 05:37 Eos # (Auto) Not Reportable 04/28/21 05:37 Baso # (Auto) Not Reportable 04/28/21 05:37 Absolute Nucleated RBC Not Reportable 04/28/21 05:37 Total Counted 100 04/28/21 05:37 Band Neuts % (Manual) 0 % (0-10) 04/28/21 05:37 Abnorm Lymph % (Manual) 0 % 04/28/21 05:37 Nucleated RBC % Not Reportable 04/28/21 05:37 Neutrophils # (Manual) 8.6 10^3/uL (1.5-6.6) H 04/28/21 05:37 Lymphocytes # (Manual) 2.4 10^3/uL (1.5-3.5) 04/28/21 05:37 Monocytes # (Manual) 1.6 10^3/uL (0.0-1.0) H 04/28/21 05:37 Eosinophils # (Manual) 0.0 10^3/uL (0-0.7) 04/28/21 05:37 Basophils # (Manual) 0.0 10^3/uL (0-0.1) 04/28/21 05:37 Differential Comment MANUAL DIFFERENTIAL 04/28/21 05:37 WBC Morphology NORMAL APPEARANCE (NORMAL) 04/26/21 04:52 Platelet Estimate NORMAL (130-450,000) (NORMAL) 04/28/21 05:37 Platelet Morphology NORMAL APPEARANCE (NORMAL) 04/26/21 04:52 RBC Morph Micro Appear NORMAL APPEARANCE (NORMAL) 04/28/21 05:37 D-Dimer 470.8 ng/mL (200.0-255.0) H 04/24/21 14:06 Sodium 141 mmol/L (135-145) 04/28/21 05:37 Potassium 3.6 mmol/L (3.5-5.0) 04/28/21 05:37 Chloride 108 mmol/L (101-111) 04/28/21 05:37 Carbon Dioxide 21 mmol/L (21-32) 04/28/21 05:37 Anion Gap 12.0 (6-13) 04/28/21 05:37 BUN 23 mg/dL (6-20) H 04/28/21 05:37 Creatinine 0.6 mg/dL (0.4-1.0) 04/28/21 05:37 Estimated GFR (MDRD) 98 (>89) 04/28/21 05:37 Glucose 122 mg/dL (70-100) H 04/28/21 05:37 Calcium 8.6 mg/dL (8.5-10.3) 04/28/21 05:37 Magnesium 2.3 mg/dL (1.7-2.8) 04/25/21 05:05 Total Bilirubin 0.5 mg/dL (0.2-1.0) 04/24/21 11:10 AST 53 IU/L (10-42) H 04/24/21 11:10 ALT 29 IU/L (10-60) 04/24/21 11:10 Alkaline Phosphatase 66 IU/L (42-121) 04/24/21 11:10 B-Natriuretic Peptide 90 pg/mL (5-100) 04/24/21 11:10 Total Protein 6.8 g/dL (6.7-8.2) 04/24/21 11:10 Albumin 3.2 g/dL (3.2-5.5) 04/24/21 11:10 Globulin 3.6 g/dL (2.1-4.2) 04/24/21 11:10 Albumin/Globulin Ratio 0.9 (1.0-2.2) L 04/24/21 11:10 Lipase 56 U/L (22-51) H 04/24/21 11:10 25-OH Vitamin D Total 40 ng/mL (30-100) 04/24/21 11:10 Nasal Adenovirus (PCR) NOT DETECTED 04/24/21 11:10 Nasal B. parapertussis DNA (PCR) NOT DETECTED 04/24/21 11:10 Nasal Coronavir 229E PCR NOT DETECTED 04/24/21 11:10 Nasal Coronavir HKU1 PCR NOT DETECTED 04/24/21 11:10 Nasal Coronavir NL63 PCR NOT DETECTED 04/24/21 11:10 Nasal Coronavir OC43 PCR NOT DETECTED 04/24/21 11:10 Nasal Enterovir/Rhinovir PCR NOT DETECTED 04/24/21 11:10 Nasal Influenza B PCR NOT DETECTED 04/24/21 11:10 Nasal Influenza A PCR NOT DETECTED 04/24/21 11:10 Nasal Parainfluen 1 PCR NOT DETECTED 04/24/21 11:10 Nasal Parainfluen 2 PCR NOT DETECTED 04/24/21 11:10 Nasal Parainfluen 3 PCR NOT DETECTED 04/24/21 11:10 Nasal Parainfluen 4 PCR NOT DETECTED 04/24/21 11:10 Nasal RSV (PCR) NOT DETECTED 04/24/21 11:10 Nasal B.pertussis DNA PCR NOT DETECTED 04/24/21 11:10 Nasal C.pneumoniae (PCR) NOT DETECTED 04/24/21 11:10 Anthony Human Metapneumo PCR NOT DETECTED 04/24/21 11:10 Nasal M.pneumoniae (PCR) NOT DETECTED 04/24/21 11:10 Nasal SARS-CoV-2 (PCR) DETECTED A 04/24/21 11:10 - Procedures Procedures: Procedures EXCISION OF ASCENDING COLON, ENDO, DIAGN (05/22/16) ABX Reporting Has patient been on IV antibiotics over the past 48 hours?: No Current Medications - Current Medications Current Medications: Active Medications Acetaminophen (Acetaminophen 325 Mg Tablet) 650 mg PO Q4HR PRN PRN Reason: Pain 1 to 4 Last Admin: 04/27/21 17:18 Dose: 650 mg Albuterol (Albuterol 1 Puff) 2 puffs INH Q4H PRN PRN Reason: Dyspnea Last Admin: 04/24/21 17:39 Dose: 2 puffs Apixaban (Apixaban 5 Mg Tablet) 5 mg PO BID [facility] Atorvastatin Calcium (Atorvastatin 10 Mg Tablet) 10 mg PO QPM [facility] Last Admin: 04/27/21 21:17 Dose: 10 mg Benzonatate (Benzonatate 100 Mg Capsule) 100 mg PO TID PRN PRN Reason: Cough Dexamethasone (Dexamethasone 4 Mg Tablet) 6 mg PO DAILYWM [facility] Stop: 05/03/21 08:01 Last Admin: 04/28/21 09:18 Dose: 6 mg Diltiazem HCl (Diltiazem Cd 120 Mg Capsule) 120 mg PO DAILY [facility] Last Admin: 04/28/21 09:18 Dose: 120 mg Folic Acid (Folic Acid 1 Mg Tablet) 1 mg PO DAILY [facility] Last Admin: 04/28/21 09:18 Dose: 1 mg Guaifenesin (Guaifenesin 600 Mg Tablet) 600 mg PO BID [facility] Ondansetron HCl (Ondansetron 4 Mg/2 Ml Vial) 4 mg IVP Q6HR PRN PRN Reason: Nausea / Vomiting Oxycodone HCl (Oxycodone 5 Mg Tablet) 5 mg PO Q4HR PRN PRN Reason: Pain 5 to 7 Pantoprazole Sodium (Pantoprazole 40 Mg Tablet) 40 mg PO QDAC [facility] Last Admin: 04/28/21 06:45 Dose: 40 mg Polyethylene Glycol (Polyethylene Glycol 3350 17 Gm Packet) 17 gm PO DAILY [facility] Last Admin: 04/28/21 09:17 Dose: 17 gm Saccharomyces Boulardii (Saccharomyces Boulardii 250 Mg Capsule) 250 mg PO BIDWM [facility] Last Admin: 04/27/21 17:18 Dose: 250 mg Sodium Chloride (Sodium Chloride Flush 0.9% 10 Ml Syringe) 10 ml IVP PRN PRN PRN Reason: NEEDED PER PROVIDER ORDERS Last Admin: 04/24/21 14:12 Dose: 10 ml Sodium Chloride (Sodium Chloride Flush 0.9% 10 Ml Syringe) 10 ml IVP 0100,0900,1700 [facility] Last Admin: 04/28/21 09:17 Dose: 10 ml Clopidogrel Bisulfate [Plavix] 75 mg PO DAILY 05/22/16 Methotrexate [Methotrexate Sodium] 20 mg PO TH 05/22/16 Rosuvastatin Calcium [Crestor] 5 mg PO DAILY 05/22/16 Folic Acid 1 mg PO DAILY 02/06/17 Pantoprazole [Protonix] 40 mg PO DAILY 04/24/21
[2021-04-28] MEDS: guaiFENesin 600 MG TABLET PO SCH ×2 (10:48→20:15)
[2021-04-28] MEDS: SACCHAROMYCES BOULARDII 250 MG CAPSULE PO SCH ×2 (10:48→16:30)
[2021-04-28] MEDS: APIXABAN 5 MG TABLET PO SCH (20:15)
[2021-04-28] MEDS: ATORVASTATIN 10 MG TABLET PO SCH (20:15)
[2021-04-29] MEDS: SODIUM CHLORIDE FLUSH 0.9% 10 ML SYRINGE IVP SCH ×4 (00:33→23:51)
[2021-04-29 05:49] LABS: BASOPHILS % (AUTO) 0.1 %; HCT - HEMATOCRIT 43.4 % (37.0-47.0); HGB - HEMOGLOBIN 14.7 g/dL (12.0-16.0); LYMPHOCYTES % (AUTO) 9.1 %; MEAN CORPUSCULAR HEMOGLOBIN 30.9 pg (27.0-31.0); MEAN CORPUSCULAR HGB CONC 33.9 g/dL (32.0-36.0); MEAN CORPUSCULAR VOLUME 91.4 fL (81.0-99.0); MEAN PLATELET VOLUME 10.4 fL (7.9-10.8); MONOCYTES % (AUTO) 10.6 %; NEUTROPHILS % (AUTO) 79.4 %; PLT - PLATELET COUNT 446 10^3/uL (130-450); RED BLOOD COUNT 4.75 10^6/uL (4.20-5.40); RED CELL DISTRIBUTION WIDTH 14.5 % (12.0-15.0); WHITE BLOOD COUNT 13.2 x10^3/uL (4.8-10.8)
[2021-04-29 05:52] LABS: ABNORMAL LYMPHS % (MANUAL) 0 %; BAND NEUTROPHILS % (MANUAL) 0 %
[2021-04-29 05:57] LABS: CALCIUM 8.5 mg/dL (8.5-10.3); CREATININE 0.6 mg/dL (0.4-1.0); POTASSIUM 3.6 mmol/L (3.5-5.0)
[2021-04-29 06:09] LABS: LYMPHOCYTES # (MANUAL) 0.9 10^3/uL (1.5-3.5); LYMPHOCYTES % (MANUAL) 7 %; MONOCYTES # (MANUAL) 1.6 10^3/uL (0.0-1.0); NEUTROPHILS # (MANUAL) 10.7 10^3/uL (1.5-6.6)
[2021-04-29 06:10] LABS: DIFFERENTIAL COMMENT MANUAL DIFFERENTIAL; PLATELET ESTIMATE, MANUAL NORMAL (130-450,000) (NORMAL); PLATELET MORPHOLOGY NORMAL APPEARANCE (NORMAL); RBC MORPHOLOGY (MULTIPLE) NORMAL APPEARANCE (NORMAL); WBC MORPHOLOGY (MULTIPLE) NORMAL APPEARANCE (NORMAL)
[2021-04-29] MEDS: PANTOPRAZOLE 40 MG TABLET PO SCH (06:25)
--- NOTE | 2021-04-29 09:04 | PROVIDER PROGRESS NOTE ---
Assessment/Plan - Problem List (1) Acute respiratory failure with hypoxia Assessment/Plan: 04/29 pt had 92% sat on 40 HHFNC and 60% FiO2, she has no acute respiratory distress and comfort resting at the bed. continue O2 supplement, continue finish Covid 19 treatment course and antibiotics treatment course. 04/28 pt required high flow of O2 on today. pt still present no acute Respiratory distress on rest, still present shortness of breath at exertion. pt was unvaccinated for Covid 19. pt finished antibiotic treatment course on today, Continue finish COVID-19 treatment, continue supplemental oxygen as needed 04/27 stable without acute respiratory distress in the rest, but pt still need 10 liter of O2 and remain 96% O2 sat, and pt still present significant shortness of breath on exertion. continue Rocephin and azithromycin initiated on 04/24/2021, Lovenox 40 mg subcut daily for DVT prophylaxis, decatron, add probiotics. Patient initially tested positive for COVID-19 on 04/08/2021. Remdesivir not given because it has been about 17 days since diagnosis. 04/26 improved. pt had 98% on 10 liter of O2 and pt is comfortable without acute respiratory Distress on resting now, but pt's O2 saturation drop quickly and she felt significantly short of breathing on exertion. Chest x-ray done on 04/24/2021 showed peripheral interstitial pattern which may reflect chronic interstitial changes versus interstitial infiltrates. Patient initially tested positive for COVID-19 on 04/08/2021. Remdesivir not give n because it has been about 17 days since diagnosis. continue Rocephin and azithromycin initiated on 04/24/2021, Lovenox 40 mg subcut daily for DVT prophylaxis, decatron, add probiotics. (2) COVID-19 Assessment/Plan: Patient initially tested positive for COVID-19 on 04/08/2021. Remdesivir not given because it has been about 17 days since diagnosis. continue Rocephin and azithromycin initiated on 04/24/2021, Lovenox 40 mg subcut daily for DVT prophylaxis, decatron, add probiotics. (3) New onset atrial fibrillation Assessment/Plan: 04/29 HR is stable and controlled, continue Cardizem CD and Eliquis 04/28 HR is controlled with Cardizem CD. pt still present afib, pt has severe Covid 19 infection, chadsvasc score is 3, we will start with eliquis, hold pt's home Plavix. 2/16 HR is controlled, Tele show SR now. continue daily Cardizzem CD, continue home Plavix, lovenox for DVT prophylaxis. pt's HR is controlled. Tele show SR now. switch to PO Cardizem CD, continue home Plavix (4) Hyperlipidemia Assessment/Plan: Patient takes rosuvastatin at home. Atorvastatin 40 mg p.o. every afternoon ordered. (5) Hypertension Currently normotensive. On Cardizem CD 120mg daily, Continue vital signs monitor (6) Hypokalemia Assessment/Plan: Resolved. Potassium level is 4.4 and magnesium 2.3 (7) Rheumatoid arthritis Assessment/Plan: Patient takes methotrexate 2.5 mg IM every . We will hold methotrexate for now while also treating a potential bacterial infection (8) GERD (gastroesophageal reflux disease) Assessment/Plan: Protonix 40 mg p.o. daily. - Current Meds Current Meds: Current Medications Generic Name Dose Route Start Last Admin Trade Name Freq PRN Reason Stop Dose Admin Acetaminophen 650 mg 04/24/21 12:40 04/27/21 17:18 Acetaminophen 325 Mg Tablet PO 650 mg Q4HR PRN Administration Pain 1 to 4 Albuterol 2 puffs 04/24/21 12:49 04/24/21 17:39 Albuterol 1 Puff INH 2 puffs Q4H PRN Administration Dyspnea Apixaban 5 mg 04/28/21 21:00 04/28/21 20:15 Apixaban 5 Mg Tablet PO 5 mg BID [facility] Administration Atorvastatin Calcium 10 mg 04/26/21 21:00 04/28/21 20:15 Atorvastatin 10 Mg Tablet PO 10 mg QPM [facility] Administration Dexamethasone 6 mg 04/28/21 08:00 04/28/21 09:18 Dexamethasone 4 Mg Tablet PO 05/03/21 08:01 6 mg DAILYWM [facility] Administration Diltiazem HCl 120 mg 04/27/21 09:00 04/28/21 09:18 Diltiazem Cd 120 Mg Capsule PO 120 mg DAILY [facility] Administration Folic Acid 1 mg 04/25/21 09:00 04/28/21 09:18 Folic Acid 1 Mg Tablet PO 1 mg DAILY [facility] Administration Guaifenesin 600 mg 04/28/21 11:00 04/28/21 20:15 Guaifenesin 600 Mg Tablet PO 600 mg BID [facility] Administration Pantoprazole Sodium 40 mg 04/25/21 07:00 04/29/21 06:25 Pantoprazole 40 Mg Tablet PO 40 mg QDAC [facility] Administration Polyethylene Glycol 17 gm 04/25/21 19:05 04/28/21 09:17 Polyethylene Glycol 3350 17 Gm Packet PO 17 gm DAILY [facility] Administration Saccharomyces Boulardii 250 mg 04/26/21 08:24 04/28/21 16:30 Saccharomyces Boulardii 250 Mg Capsule PO 250 mg BIDWM [facility] Administration Sodium Chloride 10 ml 04/24/21 12:40 04/24/21 14:12 Sodium Chloride Flush 0.9% 10 Ml Syringe IVP 10 ml PRN PRN Administration NEEDED PER PROVIDER ORDERS Sodium Chloride 10 ml 04/24/21 17:00 04/29/21 00:33 Sodium Chloride Flush 0.9% 10 Ml Syringe IVP 10 ml 0100,0900,1700 [facility] Administration - Lab Result Fish Bone Diagrams: 04/29/21 05:42 04/29/21 05:42 - Additional Planning My Orders: My Active Orders 04/28/21 10:10 Benzonatate [Tessalon] 100 mg PO TID PRN 04/28/21 11:00 guaiFENesin [Mucinex] 600 mg PO BID 04/28/21 21:00 Apixaban [Eliquis] 5 mg PO BID Subjective - Subjective Patient Reports: Resting Comfortably Objective Vital Signs: Vital Signs - 24 hr 04/28/21 04/28/21 04/28/21 12:30 13:22 15:45 Temperature 37.1 C Heart Rate [ 77 82 Brachial] Respiratory 20 20 Rate Blood Pressure [Left Brachial artery] Blood Pressure 149/70 H 133/84 H [Right Brachial artery] O2 Saturation 92 91 L 90 L 04/28/21 04/29/21 04/29/21 20:16 00:33 06:02 Temperature 37.1 C 36.8 C 36.5 C Heart Rate [ 79 82 79 Brachial] Respiratory 20 20 18 Rate Blood Pressure 139/78 H [Left Brachial artery] Blood Pressure 152/85 H 150/78 H [Right Brachial artery] O2 Saturation 92 93 91 L 04/29/21 07:53 Temperature 36.5 C Heart Rate [ 80 Brachial] Respiratory 22 Rate Blood Pressure [Left Brachial artery] Blood Pressure 158/94 H [Right Brachial artery] O2 Saturation 92 Oxygen O2 Source HHFNC Oxygen Flow Rate 4 I&O (Last 24 Hrs): Intake and Output Totals x24h 04/27/21 04/28/21 04/29/21 23:59 23:59 23:59 Intake Total 1277 1246 Output Total 1600 1075 700 Balance -323 171 -700 General: Alert, Oriented x3, Cooperative, No acute distress HEENT: Atraumatic Neck: Supple Lymphatic: no adenopathy Neuro: Alert, Non Focal, Oriented Times 3 Cardiovascular: Regular rate, Normal S1, Normal S2 Respiratory: Chest non-tender, No respiratory distress Abdomen: Normal bowel sounds, Soft Extremities: Normal pulses - Results Results: Laboratory Results WBC 13.2 x10^3/uL (4.8-10.8) H 04/29/21 05:42 RBC 4.75 10^6/uL (4.20-5.40) 04/29/21 05:42 Hgb 14.7 g/dL (12.0-16.0) 04/29/21 05:42 Hct 43.4 % (37.0-47.0) 04/29/21 05:42 MCV 91.4 fL (81.0-99.0) 04/29/21 05:42 MCH 30.9 pg (27.0-31.0) 04/29/21 05:42 MCHC 33.9 g/dL (32.0-36.0) 04/29/21 05:42 RDW 14.5 % (12.0-15.0) 04/29/21 05:42 Plt Count 446 10^3/uL (130-450) 04/29/21 05:42 MPV 10.4 fL (7.9-10.8) 04/29/21 05:42 Neut # (Auto) Not Reportable 04/29/21 05:42 Lymph # (Auto) Not Reportable 04/29/21 05:42 [place] # (Auto) Not Reportable 04/29/21 05:42 Eos # (Auto) Not Reportable 04/29/21 05:42 Baso # (Auto) Not Reportable 04/29/21 05:42 Absolute Nucleated RBC Not Reportable 04/29/21 05:42 Total Counted 100 04/29/21 05:42 Band Neuts % (Manual) 0 % (0-10) 04/29/21 05:42 Abnorm Lymph % (Manual) 0 % 04/29/21 05:42 Nucleated RBC % Not Reportable 04/29/21 05:42 Neutrophils # (Manual) 10.7 10^3/uL (1.5-6.6) H 04/29/21 05:42 Lymphocytes # (Manual) 0.9 10^3/uL (1.5-3.5) L 04/29/21 05:42 Monocytes # (Manual) 1.6 10^3/uL (0.0-1.0) H 04/29/21 05:42 Eosinophils # (Manual) 0.0 10^3/uL (0-0.7) 04/29/21 05:42 Basophils # (Manual) 0.0 10^3/uL (0-0.1) 04/29/21 05:42 Differential Comment MANUAL DIFFERENTIAL 04/29/21 05:42 WBC Morphology NORMAL APPEARANCE (NORMAL) 04/29/21 05:42 Platelet Estimate NORMAL (130-450,000) (NORMAL) 04/29/21 05:42 Platelet Morphology NORMAL APPEARANCE (NORMAL) 04/29/21 05:42 RBC Morph Micro Appear NORMAL APPEARANCE (NORMAL) 04/29/21 05:42 D-Dimer 470.8 ng/mL (200.0-255.0) H 04/24/21 14:06 Sodium 139 mmol/L (135-145) 04/29/21 05:42 Potassium 3.6 mmol/L (3.5-5.0) 04/29/21 05:42 Chloride 108 mmol/L (101-111) 04/29/21 05:42 Carbon Dioxide 18 mmol/L (21-32) L 04/29/21 05:42 Anion Gap 13.0 (6-13) 04/29/21 05:42 BUN 30 mg/dL (6-20) H 04/29/21 05:42 Creatinine 0.6 mg/dL (0.4-1.0) 04/29/21 05:42 Estimated GFR (MDRD) 98 (>89) 04/29/21 05:42 Glucose 130 mg/dL (70-100) H 04/29/21 05:42 Calcium 8.5 mg/dL (8.5-10.3) 04/29/21 05:42 Magnesium 2.3 mg/dL (1.7-2.8) 04/25/21 05:05 Total Bilirubin 0.5 mg/dL (0.2-1.0) 04/24/21 11:10 AST 53 IU/L (10-42) H 04/24/21 11:10 ALT 29 IU/L (10-60) 04/24/21 11:10 Alkaline Phosphatase 66 IU/L (42-121) 04/24/21 11:10 B-Natriuretic Peptide 90 pg/mL (5-100) 04/24/21 11:10 Total Protein 6.8 g/dL (6.7-8.2) 04/24/21 11:10 Albumin 3.2 g/dL (3.2-5.5) 04/24/21 11:10 Globulin 3.6 g/dL (2.1-4.2) 04/24/21 11:10 Albumin/Globulin Ratio 0.9 (1.0-2.2) L 04/24/21 11:10 Lipase 56 U/L (22-51) H 04/24/21 11:10 25-OH Vitamin D Total 40 ng/mL (30-100) 04/24/21 11:10 Nasal Adenovirus (PCR) NOT DETECTED 04/24/21 11:10 Nasal B. parapertussis DNA (PCR) NOT DETECTED 04/24/21 11:10 Nasal Coronavir 229E PCR NOT DETECTED 04/24/21 11:10 Nasal Coronavir HKU1 PCR NOT DETECTED 04/24/21 11:10 Nasal Coronavir NL63 PCR NOT DETECTED 04/24/21 11:10 Nasal Coronavir OC43 PCR NOT DETECTED 04/24/21 11:10 Nasal Enterovir/Rhinovir PCR NOT DETECTED 04/24/21 11:10 Nasal Influenza B PCR NOT DETECTED 04/24/21 11:10 Nasal Influenza A PCR NOT DETECTED 04/24/21 11:10 Nasal Parainfluen 1 PCR NOT DETECTED 04/24/21 11:10 Nasal Parainfluen 2 PCR NOT DETECTED 04/24/21 11:10 Nasal Parainfluen 3 PCR NOT DETECTED 04/24/21 11:10 Nasal Parainfluen 4 PCR NOT DETECTED 04/24/21 11:10 Nasal RSV (PCR) NOT DETECTED 04/24/21 11:10 Nasal B.pertussis DNA PCR NOT DETECTED 04/24/21 11:10 Nasal C.pneumoniae (PCR) NOT DETECTED 04/24/21 11:10 Anthony Human Metapneumo PCR NOT DETECTED 04/24/21 11:10 Nasal M.pneumoniae (PCR) NOT DETECTED 04/24/21 11:10 Nasal SARS-CoV-2 (PCR) DETECTED A 04/24/21 11:10 - Procedures Procedures: Procedures EXCISION OF ASCENDING COLON, ENDO, DIAGN (05/22/16) ABX Reporting Has patient been on IV antibiotics over the past 48 hours?: Yes Current Medications - Current Medications Current Medications: Active Medications Acetaminophen (Acetaminophen 325 Mg Tablet) 650 mg PO Q4HR PRN PRN Reason: Pain 1 to 4 Last Admin: 04/27/21 17:18 Dose: 650 mg Albuterol (Albuterol 1 Puff) 2 puffs INH Q4H PRN PRN Reason: Dyspnea Last Admin: 04/24/21 17:39 Dose: 2 puffs Apixaban (Apixaban 5 Mg Tablet) 5 mg PO BID [facility] Last Admin: 04/28/21 20:15 Dose: 5 mg Atorvastatin Calcium (Atorvastatin 10 Mg Tablet) 10 mg PO QPM [facility] Last Admin: 04/28/21 20:15 Dose: 10 mg Benzonatate (Benzonatate 100 Mg Capsule) 100 mg PO TID PRN PRN Reason: Cough Dexamethasone (Dexamethasone 4 Mg Tablet) 6 mg PO DAILYWM [facility] Stop: 05/03/21 08:01 Last Admin: 04/28/21 09:18 Dose: 6 mg Diltiazem HCl (Diltiazem Cd 120 Mg Capsule) 120 mg PO DAILY [facility] Last Admin: 04/28/21 09:18 Dose: 120 mg Folic Acid (Folic Acid 1 Mg Tablet) 1 mg PO DAILY [facility] Last Admin: 04/28/21 09:18 Dose: 1 mg Guaifenesin (Guaifenesin 600 Mg Tablet) 600 mg PO BID [facility] Last Admin: 04/28/21 20:15 Dose: 600 mg Ondansetron HCl (Ondansetron 4 Mg/2 Ml Vial) 4 mg IVP Q6HR PRN PRN Reason: Nausea / Vomiting Oxycodone HCl (Oxycodone 5 Mg Tablet) 5 mg PO Q4HR PRN PRN Reason: Pain 5 to 7 Pantoprazole Sodium (Pantoprazole 40 Mg Tablet) 40 mg PO QDAC [facility] Last Admin: 04/29/21 06:25 Dose: 40 mg Polyethylene Glycol (Polyethylene Glycol 3350 17 Gm Packet) 17 gm PO DAILY [facility] Last Admin: 04/28/21 09:17 Dose: 17 gm Saccharomyces Boulardii (Saccharomyces Boulardii 250 Mg Capsule) 250 mg PO BIDWM [facility] Last Admin: 04/28/21 16:30 Dose: 250 mg Sodium Chloride (Sodium Chloride Flush 0.9% 10 Ml Syringe) 10 ml IVP PRN PRN PRN Reason: NEEDED PER PROVIDER ORDERS Last Admin: 04/24/21 14:12 Dose: 10 ml Sodium Chloride (Sodium Chloride Flush 0.9% 10 Ml Syringe) 10 ml IVP 0100,0900,1700 [facility] Last Admin: 04/29/21 00:33 Dose: 10 ml Clopidogrel Bisulfate [Plavix] 75 mg PO DAILY 05/22/16 Methotrexate [Methotrexate Sodium] 20 mg PO TH 05/22/16 Rosuvastatin Calcium [Crestor] 5 mg PO DAILY 05/22/16 Folic Acid 1 mg PO DAILY 02/06/17 Pantoprazole [Protonix] 40 mg PO DAILY 04/24/21
[2021-04-29] MEDS: dexAMETHasone 4 MG TABLET PO SCH (09:11)
[2021-04-29] MEDS: FOLIC ACID 1 MG TABLET PO SCH (09:11)
[2021-04-29] MEDS: diltiaZEM CD 120 MG CAPSULE PO SCH (09:12)
[2021-04-29] MEDS: APIXABAN 5 MG TABLET PO SCH ×2 (09:12→20:48)
[2021-04-29] MEDS: guaiFENesin 600 MG TABLET PO SCH ×2 (09:31→20:48)
[2021-04-29] MEDS: SACCHAROMYCES BOULARDII 250 MG CAPSULE PO SCH ×2 (09:31→16:53)
[2021-04-29] MEDS: polyethylene glycoL 3350 17 GM PACKET PO SCH (09:31)
[2021-04-29] MEDS: BENZONATATE 100 MG CAPSULE PO PRN ×2 (10:03→16:53)
[2021-04-29] MEDS: ATORVASTATIN 10 MG TABLET PO SCH (20:48)
[2021-04-30] MEDS: ACETAMINOPHEN 325 MG TABLET PO PRN ×3 (00:15→20:15)
[2021-04-30 05:07] LABS: BASOPHILS % (AUTO) 0.1 %; HCT - HEMATOCRIT 41.1 % (37.0-47.0); HGB - HEMOGLOBIN 13.9 g/dL (12.0-16.0); LYMPHOCYTES # (AUTO) 1.2 10^3/uL (1.5-3.5); LYMPHOCYTES % (AUTO) 8.1 %; MEAN CORPUSCULAR HGB CONC 33.8 g/dL (32.0-36.0); MEAN CORPUSCULAR VOLUME 91.7 fL (81.0-99.0); MEAN PLATELET VOLUME 10.3 fL (7.9-10.8); MONOCYTES # (AUTO) 1.4 10^3/uL (0.0-1.0); MONOCYTES % (AUTO) 9.8 %; NEUTROPHILS # (AUTO) 11.9 10^3/uL (1.5-6.6); NEUTROPHILS % (AUTO) 81.1 %; PLT - PLATELET COUNT 369 10^3/uL (130-450); RED BLOOD COUNT 4.48 10^6/uL (4.20-5.40); RED CELL DISTRIBUTION WIDTH 14.4 % (12.0-15.0); WHITE BLOOD COUNT 14.6 x10^3/uL (4.8-10.8)
[2021-04-30 05:20] LABS: CALCIUM 8.5 mg/dL (8.5-10.3); CREATININE 0.6 mg/dL (0.4-1.0); POTASSIUM 3.9 mmol/L (3.5-5.0)
[2021-04-30] MEDS: PANTOPRAZOLE 40 MG TABLET PO SCH (06:21)
--- NOTE | 2021-04-30 08:28 | PROVIDER PROGRESS NOTE ---
Subjective - Prog Note Date Prog Note Date: 04/30/21 - Subjective Pt reports feeling: Improved Subjective: Lying in bed in no acute distress. Denies chest pain, nausea or vomiting and has been sleeping well. Comfortable on supplemental oxygen. Has no concerns at this time. Objective - Vital Signs/Intake & Output Reviewed Vital Signs: Yes Vital Signs: Vital Signs x48h Temp Pulse Pulse Resp BP Pulse Ox 04/30/21 08:09 36.4 C L 66 20 144/76 H 93 04/30/21 05:13 36.4 C L 82 20 147/93 H Intake & Output: Intake & Output 04/27/21 04/28/21 04/29/21 04/30/21 23:59 23:59 23:59 23:59 Intake Total 1277 1246 822 Output Total 1600 1077 1907 250 Balance -323 453 -2176 -250 - Objective General Appearance: positive: No acute distress, Alert Eyes Bilateral: positive: Normal inspection, Conjunctivae nml, No scleral icterus ENT: positive: ENT inspection nml, No signs of dehydration Respiratory: positive: Chest non-tender, No respiratory distress, Other (crackles bilateral bases) Cardiovascular: positive: Regular rate & rhythm, No murmur Peripheral Pulses: 2+ Dorsalis pedis (R), 2+ Dorsalis pedis (L) Abdomen: positive: Non-tender, No organomegaly, Nml bowel sounds, No distention Skin: positive: Color nml Extremities: positive: Non-tender, Full ROM, Nml appearance, No pedal edema Neurologic/Psychiatric: positive: Oriented x3 - Lab Results Fish Bones: 04/30/21 04:45 04/30/21 04:45 Other Labs: Lab Results x24hrs 04/30/21 04/30/21 Range/Units 04:45 04:45 WBC 14.6 H (4.8-10.8) x10^3/uL RBC 4.48 (4.20-5.40) 10^6/uL Hgb 13.9 (12.0-16.0) g/dL Hct 41.1 (37.0-47.0) % MCV 91.7 (81.0-99.0) fL MCH 31.0 (27.0-31.0) pg MCHC 33.8 (32.0-36.0) g/dL RDW 14.4 (12.0-15.0) % Plt Count 369 (130-450) 10^3/uL MPV 10.3 (7.9-10.8) fL Neut # (Auto) 11.9 H (1.5-6.6) 10^3/uL Lymph # (Auto) 1.2 L (1.5-3.5) 10^3/uL [place] # (Auto) 1.4 H (0.0-1.0) 10^3/uL Eos # (Auto) 0.0 (0.0-0.7) 10^3/uL Baso # (Auto) 0.0 (0.0-0.1) 10^3/uL Absolute Nucleated RBC 0.00 x10^3/uL Nucleated RBC % 0.0 /100WBC Sodium 138 (135-145) mmol/L Potassium 3.9 (3.5-5.0) mmol/L Chloride 110 (101-111) mmol/L Carbon Dioxide 20 L (21-32) mmol/L Anion Gap 8.0 (6-13) BUN 30 H (6-20) mg/dL Creatinine 0.6 (0.4-1.0) mg/dL Estimated GFR (MDRD) 98 (>89) Glucose 130 H (70-100) mg/dL Calcium 8.5 (8.5-10.3) mg/dL Assessment/Plan - Problem List (1) Acute respiratory failure with hypoxia Impression: Stable. Satting 92-95% on 40L 60% FiO2 on HHFNC. Desatted to 87% briefly when talking to me but was immediately able to recover. She does not use oxygen at baseline. Will plan to continue treatment for COVID and supplemental oxygen as needed. She initially tested positive for COVID on 04/08/21. Remdesivir was not given because it had been approximately 17 days since diagnosis. She is receiving Decadron, Lovenox, and probiotics. Her antibiotics were finished on 04/28. (2) COVID-19 Impression: Initially tested positive 04/08. Admitted 04/24 for dyspnea and hypoxia. Remdesivir was not initiated because it had been approximately 17 days since she tested positive. She was started on antibiotics, which have finished, as well as Lovenox and Decadron. Continue Decadron, Lovenox, and supplemental oxygen as needed. (3) New onset atrial fibrillation Impression: Current telemetry showing normal saline, however she was in atrial fibrillation overnight. HR is stable and controlled 60s-80s. Her CHADSVASC score is 3 and she was started on Eliquis on 04/28, Plavix was held. Continue Cardizem. (4) Hyperlipidemia Impression: Stable. She takes rosuvastatin at home and was started on atorvastatin daily while admitted. Qualifiers: Hyperlipidemia type: unspecified Qualified Code(s): E78.5 - Hyperlipidemia, unspecified (5) Hypertension Impression: Stable. SBPs ranging 130-154 overnight, DBP 70s-90s. Currently receiving Cardizem daily, will continue to monitor. Qualifiers: Hypertension type: primary hypertension Qualified Code(s): I10 - Essential (primary) hypertension (6) Rheumatoid arthritis Impression: Per history. she takes Methotrexate 2.5mg IM every . Will re-start this week if she remains admitted as she has finished her course of antibiotics for pneumonia. Qualifiers: Rheumatoid arthritis location: unspecified site Rheumatoid factor presence: unspecified presence Qualified Code(s): M06.9 - Rheumatoid arthritis, unspecified (7) GERD (gastroesophageal reflux disease) Impression: Stable. continue Protonix 40mg daily. Qualifiers: Esophagitis presence: without esophagitis Qualified Code(s): K21.9 - Gastro-esophageal reflux disease without esophagitis (8) Hypokalemia Impression: Resolved. Potassium has been in normal range since 04/25.
[2021-04-30] MEDS: guaiFENesin 600 MG TABLET PO SCH ×2 (09:30→20:16)
[2021-04-30] MEDS: FOLIC ACID 1 MG TABLET PO SCH (09:30)
[2021-04-30] MEDS: dexAMETHasone 4 MG TABLET PO SCH (09:31)
[2021-04-30] MEDS: diltiaZEM CD 120 MG CAPSULE PO SCH (09:33)
[2021-04-30] MEDS: APIXABAN 5 MG TABLET PO SCH ×2 (09:33→20:16)
[2021-04-30] MEDS: polyethylene glycoL 3350 17 GM PACKET PO SCH (09:34)
[2021-04-30] MEDS: SACCHAROMYCES BOULARDII 250 MG CAPSULE PO SCH ×2 (09:34→17:09)
[2021-04-30] MEDS: SODIUM CHLORIDE FLUSH 0.9% 10 ML SYRINGE IVP SCH ×3 (09:35→23:51)
[2021-04-30] MEDS: ATORVASTATIN 10 MG TABLET PO SCH (20:16)
[2021-05-01] MEDS: PANTOPRAZOLE 40 MG TABLET PO SCH (05:26)
[2021-05-01 05:50] LABS: BASOPHILS % (AUTO) 0.1 %; HCT - HEMATOCRIT 38.3 % (37.0-47.0); HGB - HEMOGLOBIN 12.9 g/dL (12.0-16.0); LYMPHOCYTES # (AUTO) 1.1 10^3/uL (1.5-3.5); LYMPHOCYTES % (AUTO) 7.6 %; MEAN CORPUSCULAR HEMOGLOBIN 30.8 pg (27.0-31.0); MEAN CORPUSCULAR HGB CONC 33.7 g/dL (32.0-36.0); MEAN CORPUSCULAR VOLUME 91.4 fL (81.0-99.0); MEAN PLATELET VOLUME 10.5 fL (7.9-10.8); MONOCYTES # (AUTO) 1.5 10^3/uL (0.0-1.0); MONOCYTES % (AUTO) 10.1 %; NEUTROPHILS # (AUTO) 11.6 10^3/uL (1.5-6.6); NEUTROPHILS % (AUTO) 80.6 %; PLT - PLATELET COUNT 314 10^3/uL (130-450); RED BLOOD COUNT 4.19 10^6/uL (4.20-5.40); RED CELL DISTRIBUTION WIDTH 14.1 % (12.0-15.0); WHITE BLOOD COUNT 14.4 x10^3/uL (4.8-10.8)
[2021-05-01 06:06] LABS: CALCIUM 8.4 mg/dL (8.5-10.3); CREATININE 0.6 mg/dL (0.4-1.0); POTASSIUM 4.2 mmol/L (3.5-5.0)
[2021-05-01] MEDS: diltiaZEM CD 120 MG CAPSULE PO SCH (08:56)
[2021-05-01] MEDS: SACCHAROMYCES BOULARDII 250 MG CAPSULE PO SCH ×2 (08:56→16:44)
[2021-05-01] MEDS: guaiFENesin 600 MG TABLET PO SCH ×2 (08:56→20:31)
[2021-05-01] MEDS: FOLIC ACID 1 MG TABLET PO SCH (08:56)
[2021-05-01] MEDS: APIXABAN 5 MG TABLET PO SCH ×2 (08:56→20:31)
[2021-05-01] MEDS: dexAMETHasone 4 MG TABLET PO SCH (08:57)
[2021-05-01] MEDS: polyethylene glycoL 3350 17 GM PACKET PO SCH (08:58)
[2021-05-01] MEDS: SODIUM CHLORIDE FLUSH 0.9% 10 ML SYRINGE IVP SCH ×2 (08:59→16:01)
--- NOTE | 2021-05-01 10:59 | PROVIDER PROGRESS NOTE ---
Subjective - Prog Note Date Prog Note Date: 05/01/21 - Subjective Pt reports feeling: No change Subjective: Pt reports she is feeling okay this morning but irritable that she had difficulty sleeping because the tubing to her oxygen had water in it and was making a distracting thumping noise. Denies nausea, vomiting, dyspnea or pain. Remains on high flow nasal cannula at this time. Objective - Vital Signs/Intake & Output Reviewed Vital Signs: Yes Vital Signs: Vital Signs x48h Temp Pulse Pulse Resp BP Pulse Ox 05/01/21 08:40 36.6 C 67 20 135/71 H 100 05/01/21 05:35 36.6 C 62 18 153/80 H 95 Intake & Output: Intake & Output 04/28/21 04/29/21 04/30/21 05/01/21 23:59 23:59 23:59 23:59 Intake Total 1246 822 872 590 Output Total 1075 1900 850 800 Balance 171 -1078 22 -210 - Objective General Appearance: positive: No acute distress, Alert Eyes Bilateral: positive: Normal inspection, Conjunctivae nml, No scleral icterus ENT: positive: No signs of dehydration Respiratory: positive: Chest non-tender, No respiratory distress, Other (+ cough, crackles bilateral bases) Cardiovascular: positive: Regular rate & rhythm (Sinus rhythm on telemetry) Peripheral Pulses: 2+ Dorsalis pedis (R), 2+ Dorsalis pedis (L) Abdomen: positive: Non-tender, No organomegaly, Nml bowel sounds, No distention Skin: positive: Color nml Extremities: positive: Non-tender, Full ROM, Nml appearance Neurologic/Psychiatric: positive: Oriented x3 - Lab Results Fish Bones: 05/01/21 05:18 05/01/21 05:18 Other Labs: Lab Results x24hrs 05/01/21 05/01/21 Range/Units 05:18 05:18 WBC 14.4 H (4.8-10.8) x10^3/uL RBC 4.19 L (4.20-5.40) 10^6/uL Hgb 12.9 (12.0-16.0) g/dL Hct 38.3 (37.0-47.0) % MCV 91.4 (81.0-99.0) fL MCH 30.8 (27.0-31.0) pg MCHC 33.7 (32.0-36.0) g/dL RDW 14.1 (12.0-15.0) % Plt Count 314 (130-450) 10^3/uL MPV 10.5 (7.9-10.8) fL Neut # (Auto) 11.6 H (1.5-6.6) 10^3/uL Lymph # (Auto) 1.1 L (1.5-3.5) 10^3/uL [place] # (Auto) 1.5 H (0.0-1.0) 10^3/uL Eos # (Auto) 0.0 (0.0-0.7) 10^3/uL Baso # (Auto) 0.0 (0.0-0.1) 10^3/uL Absolute Nucleated RBC 0.00 x10^3/uL Nucleated RBC % 0.0 /100WBC Sodium 139 (135-145) mmol/L Potassium 4.2 (3.5-5.0) mmol/L Chloride 108 (101-111) mmol/L Carbon Dioxide 21 (21-32) mmol/L Anion Gap 10.0 (6-13) BUN 35 H (6-20) mg/dL Creatinine 0.6 (0.4-1.0) mg/dL Estimated GFR (MDRD) 98 (>89) Glucose 115 H (70-100) mg/dL Calcium 8.4 L (8.5-10.3) mg/dL ABX Reporting Has patient been on IV antibiotics over the past 48 hours?: No Assessment/Plan - Problem List (1) Acute respiratory failure with hypoxia Impression: Stable. Satting 91-95% on 40L 60% FiO2 on FNC. Has not been able to have the FiO2 weaned but Respiratory Therapy is following for this. She does not use oxygen at baseline. Decadron continued, this is her 4th dose of 6 ordered. May need to consider increasing to 10 doses if she remains difficult to wean from the high flow NC. She initially tested positive for COVID on 04/08/21. Remdesivir was not given because it had been approximately 17 days since diagnosis. She is receiving Decadron, Lovenox, and probiotics. Her antibiotics were finished on 04/28. (2) COVID-19 Impression: Initially tested positive 04/08. Admitted 04/24 for dyspnea and hypoxia. Remdesivir was not initiated because it had been approximately 17 days since she tested positive. She was started on antibiotics, which have finished, as well as Lovenox and Decadron. Continue Decadron, Lovenox, and supplemental oxygen as needed. (3) New onset atrial fibrillation Impression: Current telemetry showing normal sinus rhythm today and last night. She denies chest pain or palpitations. HR is stable and controlled 60s. Her CHADSVASC score is 3 and she was started on Eliquis on 04/28, Plavix was held. Continue Cardizem. (4) Hyperlipidemia Impression: Stable. She takes rosuvastatin at home and was started on atorvastatin daily while admitted. Qualifiers: Hyperlipidemia type: unspecified Qualified Code(s): E78.5 - Hyperlipidemia, unspecified (5) Hypertension Impression: Stable. SBPs ranging 130s-150s overnight, DBP 70s-80s. Currently receiving Cardizem daily, will continue to monitor. Qualifiers: Hypertension type: primary hypertension Qualified Code(s): I10 - Essential (primary) hypertension (6) Rheumatoid arthritis Impression: Per history. She takes Methotrexate 2.5mg IM every . Will re-start this week if she remains admitted as she has finished her course of antibiotics for pneumonia. Qualifiers: Rheumatoid arthritis location: unspecified site Rheumatoid factor presence: unspecified presence Qualified Code(s): M06.9 - Rheumatoid arthritis, unspecified (7) GERD (gastroesophageal reflux disease) Impression: Stable. continue Protonix 40mg daily. Qualifiers: Esophagitis presence: without esophagitis Qualified Code(s): K21.9 - G tiffanie-esophageal reflux disease without esophagitis
[2021-05-01] MEDS: ACETAMINOPHEN 325 MG TABLET PO PRN (16:01)
[2021-05-01] MEDS: ATORVASTATIN 10 MG TABLET PO SCH (20:31)
[2021-05-02] MEDS: SODIUM CHLORIDE FLUSH 0.9% 10 ML SYRINGE IVP SCH ×3 (01:01→16:56)
[2021-05-02 04:53] LABS: BASOPHILS % (AUTO) 0.1 %; HCT - HEMATOCRIT 39.3 % (37.0-47.0); HGB - HEMOGLOBIN 13.1 g/dL (12.0-16.0); LYMPHOCYTES % (AUTO) 7.4 %; MEAN CORPUSCULAR HEMOGLOBIN 30.6 pg (27.0-31.0); MEAN CORPUSCULAR HGB CONC 33.3 g/dL (32.0-36.0); MEAN CORPUSCULAR VOLUME 91.8 fL (81.0-99.0); MEAN PLATELET VOLUME 10.6 fL (7.9-10.8); MONOCYTES % (AUTO) 11.2 %; NEUTROPHILS % (AUTO) 78.7 %; PLT - PLATELET COUNT 349 10^3/uL (130-450); RED BLOOD COUNT 4.28 10^6/uL (4.20-5.40); RED CELL DISTRIBUTION WIDTH 14.2 % (12.0-15.0); WHITE BLOOD COUNT 15.5 x10^3/uL (4.8-10.8)
[2021-05-02 04:57] LABS: ABNORMAL LYMPHS % (MANUAL) 0 %; BAND NEUTROPHILS % (MANUAL) 0 %
[2021-05-02 05:01] LABS: CALCIUM 8.5 mg/dL (8.5-10.3); CREATININE 0.6 mg/dL (0.4-1.0); POTASSIUM 4.4 mmol/L (3.5-5.0)
[2021-05-02 05:27] LABS: LYMPHOCYTES # (MANUAL) 0.8 10^3/uL (1.5-3.5); LYMPHOCYTES % (MANUAL) 5 %; MONOCYTES # (MANUAL) 2.2 10^3/uL (0.0-1.0); NEUTROPHILS # (MANUAL) 12.6 10^3/uL (1.5-6.6); PLATELET ESTIMATE, MANUAL NORMAL (130-450,000) (NORMAL); PLATELET MORPHOLOGY NORMAL APPEARANCE (NORMAL); RBC MORPHOLOGY (MULTIPLE) NORMAL APPEARANCE (NORMAL); WBC MORPHOLOGY (MULTIPLE) NORMAL APPEARANCE (NORMAL)
[2021-05-02 05:28] LABS: DIFFERENTIAL COMMENT MANUAL DIFFERENTIAL
[2021-05-02] MEDS: PANTOPRAZOLE 40 MG TABLET PO SCH (06:23)
--- NOTE | 2021-05-02 07:10 | PROVIDER PROGRESS NOTE ---
Subjective - Prog Note Date Prog Note Date: 05/02/21 - Subjective Subjective: She feels better each day. She still short of breath with activity and feels weak and fatigued overall. Still has a cough. Current Medications - Current Medications Current Medications: Active Medications Acetaminophen (Acetaminophen 325 Mg Tablet) 650 mg PO Q4HR PRN PRN Reason: Pain 1 to 4 Last Admin: 05/01/21 16:01 Dose: 650 mg Albuterol (Albuterol 1 Puff) 2 puffs INH Q4H PRN PRN Reason: Dyspnea Last Admin: 04/24/21 17:39 Dose: 2 puffs Apixaban (Apixaban 5 Mg Tablet) 5 mg PO BID [facility] Last Admin: 05/02/21 08:02 Dose: 5 mg Atorvastatin Calcium (Atorvastatin 10 Mg Tablet) 10 mg PO QPM [facility] Last Admin: 05/01/21 20:31 Dose: 10 mg Benzonatate (Benzonatate 100 Mg Capsule) 100 mg PO TID PRN PRN Reason: Cough Last Admin: 04/29/21 16:53 Dose: 100 mg Dexamethasone (Dexamethasone 4 Mg Tablet) 6 mg PO DAILYWM [facility] Stop: 05/03/21 08:01 Last Admin: 05/02/21 08:00 Dose: 6 mg Diltiazem HCl (Diltiazem Cd 120 Mg Capsule) 120 mg PO DAILY [facility] Last Admin: 05/02/21 08:02 Dose: 120 mg Folic Acid (Folic Acid 1 Mg Tablet) 1 mg PO DAILY [facility] Last Admin: 05/02/21 08:02 Dose: 1 mg Guaifenesin (Guaifenesin 600 Mg Tablet) 600 mg PO BID [facility] Last Admin: 05/02/21 08:01 Dose: 600 mg Ondansetron HCl (Ondansetron 4 Mg/2 Ml Vial) 4 mg IVP Q6HR PRN PRN Reason: Nausea / Vomiting Oxycodone HCl (Oxycodone 5 Mg Tablet) 5 mg PO Q4HR PRN PRN Reason: Pain 5 to 7 Pantoprazole Sodium (Pantoprazole 40 Mg Tablet) 40 mg PO QDAC [facility] Last Admin: 05/02/21 06:23 Dose: 40 mg Polyethylene Glycol (Polyethylene Glycol 3350 17 Gm Packet) 17 gm PO DAILY [facility] Last Admin: 05/02/21 08:04 Dose: 17 gm Saccharomyces Boulardii (Saccharomyces Boulardii 250 Mg Capsule) 250 mg PO BIDWM [facility] Last Admin: 05/02/21 08:02 Dose: 250 mg Sodium Chloride (Sodium Chloride Flush 0.9% 10 Ml Syringe) 10 ml IVP PRN PRN PRN Reason: NEEDED PER PROVIDER ORDERS Last Admin: 04/24/21 14:12 Dose: 10 ml Sodium Chloride (Sodium Chloride Flush 0.9% 10 Ml Syringe) 10 ml IVP 0100,0900,1700 [facility] Last Admin: 05/02/21 08:04 Dose: 10 ml Clopidogrel Bisulfate [Plavix] 75 mg PO DAILY 05/22/16 Methotrexate [Methotrexate Sodium] 20 mg PO TH 05/22/16 Rosuvastatin Calcium [Crestor] 5 mg PO DAILY 05/22/16 Folic Acid 1 mg PO DAILY 02/06/17 Pantoprazole [Protonix] 40 mg PO DAILY 04/24/21 Objective - Vital Signs/Intake & Output Reviewed Vital Signs: Yes Vital Signs: Vital Signs x48h Temp Pulse Resp BP Pulse Ox 05/02/21 04:40 36.5 C 59 L 19 159/80 H 92 05/02/21 00:01 36.6 C 57 L 18 142/75 H 91 L Intake & Output: Intake & Output 04/29/21 04/30/21 05/01/21 05/02/21 23:59 23:59 23:59 23:59 Intake Total 647 557 9731 200 Output Total 3853 813 9894 2000 Balance -1078 22 580 -1800 - Objective General Appearance: positive: No acute distress, Alert Eyes Bilateral: positive: Normal inspection ENT: positive: ENT inspection nml, Other (Oxymizer in place.) Neck: positive: Nml inspection Respiratory: positive: No respiratory distress, Rhonchi Cardiovascular: positive: Regular rate & rhythm. negative: Irregularly irregular, Tachycardia Skin: positive: Warm, Dry Extremities: positive: No pedal edema Neurologic/Psychiatric: negative: Disoriented to person, Disoriented to place - Lab Results Fish Bones: 05/02/21 04:22 05/02/21 04:22 Other Labs: Lab Results x24hrs 05/02/21 05/02/21 Range/Units 04:22 04:22 WBC 15.5 H (4.8-10.8) x10^3/uL RBC 4.28 (4.20-5.40) 10^6/uL Hgb 13.1 (12.0-16.0) g/dL Hct 39.3 (37.0-47.0) % MCV 91.8 (81.0-99.0) fL MCH 30.6 (27.0-31.0) pg MCHC 33.3 (32.0-36.0) g/dL RDW 14.2 (12.0-15.0) % Plt Count 349 (130-450) 10^3/uL MPV 10.6 (7.9-10.8) fL Neut # (Auto) Not Reportable Lymph # (Auto) Not Reportable [place] # (Auto) Not Reportable Eos # (Auto) Not Reportable Baso # (Auto) Not Reportable Absolute Nucleated RBC Not Reportable Total Counted 100 Band Neuts % (Manual) 0 (0 - 10) % Abnorm Lymph % (Manual) 0 % Nucleated RBC % Not Reportable Neutrophils # (Manual) 12.6 H (1.5-6.6) 10^3/uL Lymphocytes # (Manual) 0.8 L (1.5-3.5) 10^3/uL Monocytes # (Manual) 2.2 H (0.0-1.0) 10^3/uL Eosinophils # (Manual) 0.0 (0-0.7) 10^3/uL Basophils # (Manual) 0.0 (0-0.1) 10^3/uL Differential Comment MANUAL DIFFERENTIAL WBC Morphology NORMAL APPEARANCE (NORMAL) Platelet Estimate NORMAL (130-450,000) (NORMAL) Platelet Morphology NORMAL APPEARANCE (NORMAL) RBC Morph Micro Appear NORMAL APPEARANCE (NORMAL) Sodium 139 (135-145) mmol/L Potassium 4.4 (3.5-5.0) mmol/L Chloride 108 (101-111) mmol/L Carbon Dioxide 20 L (21-32) mmol/L Anion Gap 11.0 (6-13) BUN 32 H (6-20) mg/dL Creatinine 0.6 (0.4-1.0) mg/dL Estimated GFR (MDRD) 98 (>89) Glucose 114 H (70-100) mg/dL Calcium 8.5 (8.5-10.3) mg/dL Assessment/Plan - Problem List (1) Acute respiratory failure with hypoxia Impression: This is felt be secondary to COVID-19 pneumonia. She was on high flow nasal cannula the past 2 days but is now weaned down to an Oxymizer. She is still on 8 L of oxygen but has shown evidence of improvement. She has had a chest x-ray since admission's we will repeat a chest x-ray today. She has completed antibiotics and her white blood cell count still rising but this may be due to steroids we will continue to monitor this time. Her D-dimer was also initially elevated but a CT angiogram was not obtained. She is on Eliquis now for the atrial fibrillation. If she does not have continued improvement in her hypoxia and dyspnea we will obtain a CT angiogram. Continue supportive measures. (2) COVID-19 Impression: This is felt to be the cause of her respiratory failure with hypoxia. She is not vaccinated. She has been treated with Decadron and initially IV antibiotics as there was concern for bacterial component of pneumonia. She was not treated with remdesivir given she was ill for nearly 2 weeks prior to admission. We are continuing to manage her respiratory failure as mentioned. (3) New onset atrial fibrillation Impression: She is now in a sinus rhythm. Echocardiogram revealed no significant valvular disease. We are continuing Eliquis and diltiazem. (4) Hypertension Impression: She has been hypertensive with systolics in the 150s to 160s. This likely exacerbated by the use of steroids. We'll continue diltiazem and add losartan today. Qualifiers: Hypertension type: primary hypertension Qualified Code(s): I10 - Essential (primary) hypertension (5) Rheumatoid arthritis Impression: She is on methotrexate for her rheumatoid arthritis which does make her immunocompromised. We'll continue to hold this for the time being as we manage her COVID-19 infection. (6) GERD (gastroesophageal reflux disease) Impression: Continue Protonix. Qualifiers: Esophagitis presence: without esophagitis Qualified Code(s): K21.9 - Gastro-esophageal reflux disease without esophagitis
[2021-05-02] MEDS: dexAMETHasone 4 MG TABLET PO SCH (08:00)
[2021-05-02] MEDS: guaiFENesin 600 MG TABLET PO SCH ×2 (08:01→20:29)
[2021-05-02] MEDS: diltiaZEM CD 120 MG CAPSULE PO SCH (08:02)
[2021-05-02] MEDS: APIXABAN 5 MG TABLET PO SCH ×2 (08:02→20:29)
[2021-05-02] MEDS: FOLIC ACID 1 MG TABLET PO SCH (08:02)
[2021-05-02] MEDS: SACCHAROMYCES BOULARDII 250 MG CAPSULE PO SCH ×2 (08:02→16:56)
[2021-05-02] MEDS: polyethylene glycoL 3350 17 GM PACKET PO SCH (08:04)
--- NOTE | 2021-05-02 09:57 | XRAY Report ---
PROCEDURE: Chest 1 View X-Ray INDICATIONS: Hypoxia. Covid. TECHNIQUE: One view of the chest was acquired. COMPARISON: April 24, 2021 FINDINGS: SUPPORT DEVICES: None. LUNGS/PLEURA: Mildly coarsened interstitial markings. No focal consolidation, pleural effusion or spa ce-occupying pneumothorax. MEDIASTINUM: The cardiomediastinal silhouette is within normal limits. BONES/SOFT TISSUES: No acute abnormality. IMPRESSION: 1.Pulmonary edema versus chronic interstitial lung change. Reviewed by: Juventino Mosley MD on 05/02/2021 9:56 AM [facility] Approved by: Juventino Mosley MD on 05/02/2021 9:56 AM [facility] Station ID: [id number]
[2021-05-02] MEDS: LOSARTAN 50 MG TABLET PO SCH (10:11)
[2021-05-02] MEDS: ATORVASTATIN 10 MG TABLET PO SCH (20:29)
[2021-05-03] MEDS: SODIUM CHLORIDE FLUSH 0.9% 10 ML SYRINGE IVP SCH ×4 (00:15→21:00)
[2021-05-03 05:03] LABS: BASOPHILS % (AUTO) 0.3 %; HCT - HEMATOCRIT 38.9 % (37.0-47.0); LYMPHOCYTES % (AUTO) 6.4 %; MEAN CORPUSCULAR HEMOGLOBIN 30.5 pg (27.0-31.0); MEAN CORPUSCULAR HGB CONC 33.4 g/dL (32.0-36.0); MEAN CORPUSCULAR VOLUME 91.3 fL (81.0-99.0); MEAN PLATELET VOLUME 10.6 fL (7.9-10.8); MONOCYTES % (AUTO) 11.7 %; NEUTROPHILS % (AUTO) 76.4 %; PLT - PLATELET COUNT 368 10^3/uL (130-450); RED BLOOD COUNT 4.26 10^6/uL (4.20-5.40); RED CELL DISTRIBUTION WIDTH 14.2 % (12.0-15.0); WHITE BLOOD COUNT 18.7 x10^3/uL (4.8-10.8)
[2021-05-03 05:11] LABS: ABNORMAL LYMPHS % (MANUAL) 0 %; BAND NEUTROPHILS % (MANUAL) 0 %
[2021-05-03 05:24] LABS: BUN - BLOOD UREA NITROGEN 29 mg/dL (6-20); CALCIUM 8.3 mg/dL (8.5-10.3); CARBON DIOXIDE - CO2 20 mmol/L (21-32); CHLORIDE 107 mmol/L (101-111); CREATININE 0.6 mg/dL (0.4-1.0); GFR - MDRD 98 (>89); GLUCOSE 117 mg/dL (70-100); POTASSIUM 4.4 mmol/L (3.5-5.0); SODIUM 136 mmol/L (135-145)
[2021-05-03 05:26] LABS: CRP - C-REACTIVE PROTEIN < 1.0 mg/dL (0-1.0)
[2021-05-03 05:27] LABS: LYMPHOCYTES # (MANUAL) 1.7 10^3/uL (1.5-3.5); LYMPHOCYTES % (MANUAL) 9 %; MONOCYTES # (MANUAL) 2.1 10^3/uL (0.0-1.0); MYELOCYTES % (MANUAL) 1 %; NEUTROPHILS # (MANUAL) 14.8 10^3/uL (1.5-6.6); RBC MORPHOLOGY (MULTIPLE) NORMAL APPEARANCE (NORMAL)
[2021-05-03 05:28] LABS: DIFFERENTIAL COMMENT MANUAL DIFFERENTIAL; PLATELET ESTIMATE, MANUAL NORMAL (130-450,000) (NORMAL); PLATELET MORPHOLOGY NORMAL APPEARANCE (NORMAL); WBC MORPHOLOGY (MULTIPLE) NORMAL APPEARANCE (NORMAL)
[2021-05-03] MEDS: PANTOPRAZOLE 40 MG TABLET PO SCH (06:10)
--- NOTE | 2021-05-03 10:19 | PROVIDER PROGRESS NOTE ---
Subjective - Prog Note Date Prog Note Date: 05/03/21 - Subjective Pt reports feeling: Improved Subjective: Patient report she feel better. She had oxygen saturation study. She still need 6 L oxygen to have 90% oxygen saturation in exertion. It is still too high O2 requirement for d/c home now, and she fee not comfortable at high O2 requirement by NH. Current Medications - Current Medications Current Medications: Active Medications Acetaminophen (Acetaminophen 325 Mg Tablet) 650 mg PO Q4HR PRN PRN Reason: Pain 1 to 4 Last Admin: 05/01/21 16:01 Dose: 650 mg Albuterol (Albuterol 1 Puff) 2 puffs INH Q4H PRN PRN Reason: Dyspnea Last Admin: 04/24/21 17:39 Dose: 2 puffs Apixaban (Apixaban 5 Mg Tablet) 5 mg PO BID [facility] Last Admin: 05/02/21 20:29 Dose: 5 mg Atorvastatin Calcium (Atorvastatin 10 Mg Tablet) 10 mg PO QPM [facility] Last Admin: 05/02/21 20:29 Dose: 10 mg Benzonatate (Benzonatate 100 Mg Capsule) 100 mg PO TID PRN PRN Reason: Cough Last Admin: 04/29/21 16:53 Dose: 100 mg Diltiazem HCl (Diltiazem Cd 120 Mg Capsule) 120 mg PO DAILY [facility] Last Admin: 05/02/21 08:02 Dose: 120 mg Folic Acid (Folic Acid 1 Mg Tablet) 1 mg PO DAILY [facility] Last Admin: 05/02/21 08:02 Dose: 1 mg Guaifenesin (Guaifenesin 600 Mg Tablet) 600 mg PO BID [facility] Last Admin: 05/02/21 20:29 Dose: 600 mg Losartan Potassium (Losartan 50 Mg Tablet) 50 mg PO DAILY [facility] Last Admin: 05/02/21 10:11 Dose: 50 mg Ondansetron HCl (Ondansetron 4 Mg/2 Ml Vial) 4 mg IVP Q6HR PRN PRN Reason: Nausea / Vomiting Oxycodone HCl (Oxycodone 5 Mg Tablet) 5 mg PO Q4HR PRN PRN Reason: Pain 5 to 7 Pantoprazole Sodium (Pantoprazole 40 Mg Tablet) 40 mg PO QDAC [facility] Last Admin: 05/03/21 06:10 Dose: 40 mg Polyethylene Glycol (Polyethylene Glycol 3350 17 Gm Packet) 17 gm PO DAILY [facility] Last Admin: 05/02/21 08:04 Dose: 17 gm Saccharomyces Boulardii (Saccharomyces Boulardii 250 Mg Capsule) 250 mg PO BIDWM [facility] Last Admin: 05/02/21 16:56 Dose: 250 mg Sodium Chloride (Sodium Chloride Flush 0.9% 10 Ml Syringe) 10 ml IVP PRN PRN PRN Reason: NEEDED PER PROVIDER ORDERS Last Admin: 04/24/21 14:12 Dose: 10 ml Sodium Chloride (Sodium Chloride Flush 0.9% 10 Ml Syringe) 10 ml IVP 0100,0900,1700 [facility] Last Admin: 05/03/21 00:15 Dose: 10 ml Clopidogrel Bisulfate [Plavix] 75 mg PO DAILY 05/22/16 Methotrexate [Methotrexate Sodium] 20 mg PO TH 05/22/16 Rosuvastatin Calcium [Crestor] 5 mg PO DAILY 05/22/16 Folic Acid 1 mg PO DAILY 02/06/17 Pantoprazole [Protonix] 40 mg PO DAILY 04/24/21 Objective - Vital Signs/Intake & Output Vital Signs: Vital Signs x48h Temp Pulse Resp BP Pulse Ox 05/03/21 07:28 36.5 C 61 16 159/84 H 94 05/03/21 06:00 36.6 C 58 L 20 168/91 H 93 Intake & Output: Intake & Output 04/30/21 05/01/21 05/02/21 05/03/21 23:59 23:59 23:59 23:59 Intake Total 872 1830 1470 Output Total 850 1250 2300 700 Balance 22 580 -830 -700 - Objective General Appearance: positive: No acute distress, Alert. negative: Lethargic Eyes Bilateral: positive: Normal inspection ENT: positive: ENT inspection nml, No signs of dehydration. negative: Purulent nasal drainage Neck: positive: Nml inspection, Trachea midline. negative: Tracheal deviation Respiratory: positive: Chest non-tender, No respiratory distress, Rales. negative: Wheezes Cardiovascular: positive: Regular rate & rhythm. negative: Tachycardia, Bradycardia, Systolic murmur Peripheral Pulses: 2+ Radial (R), 2+ Radial (L) Abdomen: positive: Non-tender, Nml bowel sounds, No distention. negative: Tenderness Back: positive: Nml inspection Skin: positive: Color nml, Warm, Dry. negative: Cyanosis Extremities: positive: Non-tender, Full ROM, Nml appearance Neurologic/Psychiatric: positive: Oriented x3, Motor nml, Sensation nml. negative: Weakness, Sensory loss, Facial droop, Slurred/abnml speech, Depressed mood/affect - Lab Results Fish Bones: 05/03/21 04:32 05/03/21 04:32 Other Labs: Lab Results x24hrs 05/03/21 05/03/21 Range/Units 04:32 04:32 WBC 18.7 H (4.8-10.8) x10^3/uL RBC 4.26 (4.20-5.40) 10^6/uL Hgb 13.0 (12.0-16.0) g/dL Hct 38.9 (37.0-47.0) % MCV 91.3 (81.0-99.0) fL MCH 30.5 (27.0-31.0) pg MCHC 33.4 (32.0-36.0) g/dL RDW 14.2 (12.0-15.0) % Plt Count 368 (130-450) 10^3/uL MPV 10.6 (7.9-10.8) fL Neut # (Auto) Not Reportable Lymph # (Auto) Not Reportable [place] # (Auto) Not Reportable Eos # (Auto) Not Reportable Baso # (Auto) Not Reportable Absolute Nucleated RBC Not Reportable Total Counted 100 Band Neuts % (Manual) 0 (0 - 10) % Abnorm Lymph % (Manual) 0 % Myelocytes % 1 H ( - 0) % Nucleated RBC % Not Reportable Neutrophils # (Manual) 14.8 H (1.5-6.6) 10^3/uL Lymphocytes # (Manual) 1.7 (1.5-3.5) 10^3/uL Monocytes # (Manual) 2.1 H (0.0-1.0) 10^3/uL Eosinophils # (Manual) 0.0 (0-0.7) 10^3/uL Basophils # (Manual) 0.0 (0-0.1) 10^3/uL Differential Comment MANUAL DIFFERENTIAL WBC Morphology NORMAL APPEARANCE (NORMAL) Platelet Estimate NORMAL (130-450,000) (NORMAL) Platelet Morphology NORMAL APPEARANCE (NORMAL) RBC Morph Micro Appear NORMAL APPEARANCE (NORMAL) Sodium 136 (135-145) mmol/L Potassium 4.4 (3.5-5.0) mmol/L Chloride 107 (101-111) mmol/L Carbon Dioxide 20 L (21-32) mmol/L Anion Gap 9.0 (6-13) BUN 29 H (6-20) mg/dL Creatinine 0.6 (0.4-1.0) mg/dL Estimated GFR (MDRD) 98 (>89) Glucose 117 H (70-100) mg/dL Calcium 8.3 L (8.5-10.3) mg/dL C-Reactive Protein < 1.0 (0-1.0) mg/dL ABX Reporting Has patient been on IV antibiotics over the past 48 hours?: No Assessment/Plan - Problem List (1) Acute respiratory failure with hypoxia Impression: pt's O2 desat show she still need 6 liter of O2 by NC at exertion. she feel her breathing improved on exertion. we will continue currently treatment, hopefully pt's home O2 requirement can be reduced and pt can tolerate home O2, then d/c pt to home. continue supplement of O2 to her as needed, continue vital and lab monitor. (2) COVID-19 Impression: This is likely to be the cause of her respiratory failure with hypoxia. She is not vaccinated. She has been treated with Decadron, and initially IV antibiotics as there was concern for bacterial component of pneumonia. she finished antibiotics treatment course. She was not treated with remdesivir given she was ill for nearly 2 weeks prior to admission. We are continuing to manage her respiratory failure as mentioned. (3) New onset atrial fibrillation Impression: Her HR is controlled, She is now in a sinus rhythm. Echocardiogram revealed no significant valvular disease. We are continuing Eliquis and diltiazem. (4) Hypertension Impression: She has been hypertensive with systolics in the 150s to 160s. This likely exacerbated by the use of steroids. We'll continue diltiazem and add losartan today. (5) Rheumatoid arthritis Impression: stable, will continue folic acid, and pain control. She is on methotrexate for her rheumatoid arthritis which does make her immunocompromised. We'll continue to hold this for the time being as we manage her COVID-19 infection. (6) GERD (gastroesophageal reflux disease) Impression: Continue Protonix.
[2021-05-03] MEDS: SACCHAROMYCES BOULARDII 250 MG CAPSULE PO SCH ×2 (11:10→17:06)
[2021-05-03] MEDS: diltiaZEM CD 120 MG CAPSULE PO SCH (11:10)
[2021-05-03] MEDS: dexAMETHasone 4 MG TABLET PO SCH (11:10)
[2021-05-03] MEDS: APIXABAN 5 MG TABLET PO SCH ×2 (11:10→21:00)
[2021-05-03] MEDS: FOLIC ACID 1 MG TABLET PO SCH (11:14)
[2021-05-03] MEDS: polyethylene glycoL 3350 17 GM PACKET PO SCH (11:14)
[2021-05-03] MEDS: LOSARTAN 50 MG TABLET PO SCH (11:14)
[2021-05-03] MEDS: guaiFENesin 600 MG TABLET PO SCH ×2 (11:15→21:00)
[2021-05-03] MEDS: ATORVASTATIN 10 MG TABLET PO SCH (21:00)
[2021-05-04 05:17] LABS: BASOPHILS % (AUTO) 0.3 %; HGB - HEMOGLOBIN 13.4 g/dL (12.0-16.0); LYMPHOCYTES % (AUTO) 6.6 %; MEAN CORPUSCULAR HEMOGLOBIN 30.8 pg (27.0-31.0); MEAN CORPUSCULAR HGB CONC 33.5 g/dL (32.0-36.0); MEAN PLATELET VOLUME 10.6 fL (7.9-10.8); MONOCYTES % (AUTO) 10.7 %; NEUTROPHILS % (AUTO) 76.8 %; PLT - PLATELET COUNT 347 10^3/uL (130-450); RED BLOOD COUNT 4.35 10^6/uL (4.20-5.40); RED CELL DISTRIBUTION WIDTH 14.5 % (12.0-15.0); WHITE BLOOD COUNT 19.1 x10^3/uL (4.8-10.8)
[2021-05-04 05:24] LABS: CALCIUM 8.4 mg/dL (8.5-10.3); CREATININE 0.6 mg/dL (0.4-1.0); POTASSIUM 4.2 mmol/L (3.5-5.0)
[2021-05-04 05:32] LABS: ABNORMAL LYMPHS % (MANUAL) 0 %
[2021-05-04 05:57] LABS: BAND NEUTROPHILS % (MANUAL) 1 %; LYMPHOCYTES # (MANUAL) 0.6 10^3/uL (1.5-3.5); LYMPHOCYTES % (MANUAL) 3 %; MONOCYTES # (MANUAL) 1.7 10^3/uL (0.0-1.0); NEUTROPHILS # (MANUAL) 16.8 10^3/uL (1.5-6.6); PLATELET ESTIMATE, MANUAL NORMAL (130-450,000) (NORMAL); RBC MORPHOLOGY (MULTIPLE) NORMAL APPEARANCE (NORMAL)
[2021-05-04 05:58] LABS: DIFFERENTIAL COMMENT MANUAL DIFFERENTIAL
[2021-05-04] MEDS: PANTOPRAZOLE 40 MG TABLET PO SCH (06:00)
--- NOTE | 2021-05-04 09:02 | Discharge Plan ---
Discharge Plan Problem Reviewed?: Yes Disposition: Home, Self Care Condition: Stable Prescriptions: diltiaZEM CD [Cardizem Cd] 120 mg PO DAILY #30 cap Losartan [Cozaar] 50 mg PO DAILY #30 tablet Apixaban [Eliquis] 5 mg PO BID #60 tablet Benzonatate [Tessalon] 100 mg PO TID PRN #20 cap PRN Reason: Cough Diet: Regular Activity Restrictions: Activity as Tolerated Shower Restrictions: No (fall precaution) Instruction Topics: Apixaban oral tablets, Diltiazem extended-release capsules or tablets, Oxygen Home Use, Atrial Fibrillation, COVID-19 [facility], COVID-19 [facility] Department Statement Health Concerns: Covid 19 and home oxygen, atrial fibrillation Plan of Treatment: You were treated for your Covid 19 infection and you have significantly improved. But you still need home O2 now, please followup with RT instruction and safely use oxygen at home. You may use 3 LPM of O2 at rest and 6 LPM of O2 for your exertion by ME now. You were found to have a new atrial fibrillation. You are prescribed Cardizem and Eliquis for your atrial fibrillation. You may followup with vermin exterminator as out-pt. Care Goals: Stabilization and improvement of your medical conditions Assessment: Discussed the care plan with you, answered your questions, and you understood Additional Instructions or Follow Up instructions: You may follow-up with your PCP in 1 to 2 weeks, Follow-up with [facility] COVID-19 recommendations. Should your symptoms return or worsen, you may present to the ER or call 911 for help No Smoking: If you smoke, Please STOP! Call for help.
[2021-05-04] MEDS: guaiFENesin 600 MG TABLET PO SCH (09:24)
[2021-05-04] MEDS: LOSARTAN 50 MG TABLET PO SCH (09:24)
[2021-05-04] MEDS: FOLIC ACID 1 MG TABLET PO SCH (09:24)
[2021-05-04] MEDS: SACCHAROMYCES BOULARDII 250 MG CAPSULE PO SCH (09:24)
[2021-05-04] MEDS: APIXABAN 5 MG TABLET PO SCH (09:24)
[2021-05-04] MEDS: diltiaZEM CD 120 MG CAPSULE PO SCH (09:24)
[2021-05-04] MEDS: SODIUM CHLORIDE FLUSH 0.9% 10 ML SYRINGE IVP SCH (09:25)
[2021-05-04] MEDS: polyethylene glycoL 3350 17 GM PACKET PO SCH (09:25)
--- NOTE | 2021-05-04 09:26 | DISCHARGE SUMMARY ---
Discharge Summary Admit Date: 04/24/21 Discharge Date: 05/04/21 Discharging Provider: Brooks Perez Condition at Discharge: Stable Discharge Disposition: 01 Home, Self Care Discharge Facility Name: home - DIAGNOSES Discharge Diagnoses with Status of Each Condition: (1) Acute respiratory failure with hypoxia resolved. pt has no Acute respiratory distress. Patient was COVID-19 positive, patient finished COVID-19 treatment course in the hospital. (2) COVID-19 Patient had COVID-19 infection. Patient has hypoxia 85% O2 saturation on room air. On 2 LPM of oxygen at room air, patient had 87% oxygen saturation. On 3 LPM of O2, pt had 90-91% O2 sats on rest. pt is hypoxic 84% O2 Sats on 3 LPM of O2 at exertion. pt is hypoxic 85% O2 Sats on 4 LPM of O2 at exertion. pt is hypoxic 86% O2 Sats on 5 LPM of O2 at exertion. pt is 90% O2 Sats on 6 LPM of O2 at exertion. I am ordered home oxygen at 3 LPM of O2 at rest, and 6 LPM of O2 on exertion to treat the patient's COVID-19 (3) New onset atrial fibrillation Stable, patient's heart rate was controlled, patient is prescribed Cardizem and Eliquis (4) Hypertension stable, pt is prescribed Cardizem and Losartan (5) Rheumatoid arthritis stable, resume home meds, followup with dance master (6) GERD (gastroesophageal reflux disease) stable, Continue Protonix. - HPI History of Present Illness: refer from Dr. Gilbert's HPI onn 04/24/21 Patient is a 75-year-old female who presented to the ED with complaint of dyspnea, cough and a low-grade fever. She reported a temperature of 99 F today and the highest temperature she has had this 101 F. On 04/08/2021 she tested positive for COVID-19. She is unvaccinated for COVID19. Her symptoms of dyspnea, fever and cough started 5 days ago. She came in today because it became significant. Her cough is pink-tinged. She reports nausea but no vomiting. She denies abdominal pain or diarrhea. In the ED she was noted to have an oxygen saturation of 86% on room air. She required 4 L of oxygen to maintain her oxygen around 94%. She was also noted to be in atrial fibrillation with heart rate as high as the 120s. She does not have a previous history of atrial fibrillation. As a result of her presentation she is being admitted for further management. - ALLERGIES Allergies/Adverse Reactions: Allergies Allergy/AdvReac Type Severity Reaction Status Date / Time adhesive AdvReac Rash Verified 04/24/21 10:41 lisinopril AdvReac Unknown Verified 04/24/21 10:41 - MEDICATIONS Home Medications: Ambulatory Orders Medication Instructions Recorded Confirmed Methotrexate [Methotrexate Sodium] 20 mg PO TH 05/22/16 04/24/21 Rosuvastatin Calcium [Crestor] 5 mg PO DAILY 05/22/16 04/24/21 Folic Acid 1 mg PO DAILY 02/06/17 04/24/21 Pantoprazole [Protonix] 40 mg PO DAILY 04/24/21 04/24/21 Apixaban [Eliquis] 5 mg PO BID #60 tablet 05/04/21 Benzonatate [Tessalon] 100 mg PO TID PRN #20 cap 05/04/21 Losartan [Cozaar] 50 mg PO DAILY #30 tablet 05/04/21 diltiaZEM CD [Cardizem Cd] 120 mg PO DAILY #30 cap 05/04/21 - PHYSICAL EXAM AT DISCHARGE General Appearance: positive: No acute distress, Alert. negative: Lethargic Eyes Bilateral: positive: Normal inspection, No lid inflammation ENT: positive: ENT inspection nml, No signs of dehydration. negative: Dry mucous membranes Neck: positive: Nml inspection, Trachea midline. negative: Tracheal deviation Respiratory: positive: Chest non-tender, No respiratory distress. negative: Wheezes Cardiovascular: positive: Regular rate & rhythm. negative: Tachycardia, Bradycardia, Systolic murmur Peripheral Pulses: positive: 2+ Abdomen: positive: Non-tender, Nml bowel sounds, No distention Back: positive: Nml inspection Skin: positive: Color nml, Warm, Dry. negative: Cyanosis Extremities: positive: Non-tender, Full ROM, Nml appearance Neurologic/Psychiatric: positive: Oriented x3, Motor nml, Sensation nml, Mood /affect nml. negative: Weakness, Sensory loss, Facial droop, Slurred/abnml speech, Depressed mood/affect - LABS Result Diagrams: 05/04/21 04:28 05/04/21 04:28 - FOLLOW UP Follow Up: You were treated for your Covid 19 infection and you have significantly improved. But you still need home O2 now, please followup with RT instruction and safely use oxygen at home. You may use 3 LPM of O2 at rest and 6 LPM of O2 for your exertion by [place] now. You were found to have a new atrial fibrillation. You are prescribed Cardizem and Eliquis for your atrial fibrillation. You may followup with books salesperson as out-pt. You may follow-up with your PCP in 1 to 2 weeks, Follow-up with [facility] COVID-19 recommendations. Should your symptoms return or worsen, you may present to the ER or call 911 for help
[2021-05-04 16:01] VITALS: BP 125/62
== END 2021-05-04 16:29 | disposition home or self-care (01) | DRG 177 ==
LOC: ED 10:22 → MS2 12:40
PROVIDERS: ADMIT Internal Medicine; ATTEND Nurse Practitioner Gerontology
PROC: 3E0333Z Introduction of Anti-inflammatory into Peripheral Vein, Percutaneous Approach (ICD-10-PCS; principal; 2021-04-24)
DX: U07.1 COVID-19 (principal); J18.9 Pneumonia, unspecified organism; R09.02 Hypoxemia; J96.01 Acute respiratory failure with hypoxia; J15.9 Unspecified bacterial pneumonia; I48.91 Unspecified atrial fibrillation; Z87.891 Personal history of nicotine dependence; E78.5 Hyperlipidemia, unspecified; I10 Essential (primary) hypertension; E87.6 Hypokalemia; M06.9 Rheumatoid arthritis, unspecified; K21.9 Gastro-esophageal reflux disease without esophagitis
CPT/HCPCS: 36415; 71045; 80048; 80053; 82306; 83690; 83735; 83880; 85025; 85379; 86140; 87040; 87631; 93005; 93306; 94640; 94664; 94761; 96374; 97161; 99284; 99285; A9270; J1650; J7626; J8540; 0202U

== ENCOUNTER 2021-09-17 08:00 | Outpatient (CLI) | payer MEDICARE, OTHER ==
[2021-09-17 19:12] LABS: BASOPHILS % (AUTO) 0.3 %; EOSINOPHILS # (AUTO) 0.1 10^3/uL (0.0-0.7); EOSINOPHILS % (AUTO) 1.4 %; HCT - HEMATOCRIT 42.5 % (37.0-47.0); HGB - HEMOGLOBIN 13.2 g/dL (12.0-16.0); LYMPHOCYTES # (AUTO) 3.3 10^3/uL (1.5-3.5); MEAN CORPUSCULAR HEMOGLOBIN 30.1 pg (27.0-31.0); MEAN CORPUSCULAR HGB CONC 31.1 g/dL (32.0-36.0); MEAN PLATELET VOLUME 10.8 fL (7.9-10.8); MONOCYTES # (AUTO) 0.9 10^3/uL (0.0-1.0); NEUTROPHILS # (AUTO) 4.5 10^3/uL (1.5-6.6); NEUTROPHILS % (AUTO) 51.2 %; PLT - PLATELET COUNT 346 10^3/uL (130-450); RED BLOOD COUNT 4.38 10^6/uL (4.20-5.40); RED CELL DISTRIBUTION WIDTH 15.4 % (12.0-15.0); WHITE BLOOD COUNT 8.8 x10^3/uL (4.8-10.8)
[2021-09-17 19:40] LABS: ALBUMIN 4.1 g/dL (3.2-5.5); ALBUMIN/GLOBULIN RATIO 1.2 (1.0-2.2); ALKALINE PHOSPHATASE 63 IU/L (42-121); ALT ALANINE AMINOTRANSFERASE 19 IU/L (10-60); AST ASPARTATE AMINOTRANSFERASE 21 IU/L (10-42); BILIRUBIN,TOTAL 0.6 mg/dL (0.2-1.0); BUN - BLOOD UREA NITROGEN 24 mg/dL (6-20); CALCIUM 9.3 mg/dL (8.5-10.3); CARBON DIOXIDE - CO2 27 mmol/L (21-32); CHLORIDE 104 mmol/L (101-111); CREATININE 1.1 mg/dL (0.4-1.0); GFR - MDRD 48 (>89); GLUCOSE 95 mg/dL (70-100); POTASSIUM 3.9 mmol/L (3.5-5.0); SODIUM 138 mmol/L (135-145); TOTAL PROTEIN 7.5 g/dL (6.7-8.2)
[2021-09-17 21:11] LABS: CRP - C-REACTIVE PROTEIN < 1.0 mg/dL (0-1.0)
== END 2021-09-17 23:59 | disposition home or self-care (01) ==
LOC: LAB.N 08:00
PROVIDERS: ATTEND Family Medicine
DX: R42 Dizziness and giddiness (principal)
CPT/HCPCS: 36415; 80053; 84443; 85025; 85651; 86140